=== PATIENT | male | born 1995 | race Caucasian/White ===

== ENCOUNTER 2024-05-12 19:01 | Emergency (ER) | payer MEDICAID, OTHER ==
[~2024-05-12] VITALS: Ht 182.9 cm; Wt 82.7 kg
[~2024-05-12 19:01] MED LIST: IBUP-1051 PO; LISD60CA PO
[2024-05-12 19:24] LABS: BASOPHILS % (AUTO) 0.6 % (0-1); EOSINOPHILS # (AUTO) 0.2 X10'3 (0-0.9); EOSINOPHILS % (AUTO) 4.2 % (0-6); HEMATOCRIT 36.8 % (42.0-52.0); HEMOGLOBIN 12.8 g/dl (14.0-17.9); LYMPHOCYTES # (AUTO) 1.5 X10'3 (1.1-4.8); LYMPHOCYTES % (AUTO) 25.3 % (21-51); MEAN CORPUSCULAR HEMOGLOBIN 30.2 PG (27.0-31.0); MEAN CORPUSCULAR HGB CONC 34.7 g/dL (33.0-36.5); MEAN PLATELET VOLUME 7.4 FL (7.4-10.4); MONOCYTES # (AUTO) 0.4 X10'3 (0-0.9); MONOCYTES % (AUTO) 7.2 % (2-12); NEUTROPHILS # (AUTO) 3.7 X10'3 (1.8-7.7); NEUTROPHILS % (AUTO) 62.7 % (42-75); PLATELET COUNT 193 X10'3 (140-440); RED BLOOD COUNT 4.23 X10'6 (4.70-6.10); RED CELL DISTRIBUTION WIDTH 13.2 % (11.5-14.5); WHITE BLOOD COUNT 5.8 X10'3 (4.5-11.0)
[2024-05-12 19:37] LABS: ALBUMIN 2.9 G/DL (3.4-5.0); ANION GAP 8 (8-16); BLOOD UREA NITROGEN 16 MG/DL (7-18); BUN/CREATININE RATIO 19.5 (10.0-20.0); CALCIUM 8.1 MG/DL (8.5-10.1); CHLORIDE 101 MMOL/L (99-107); CREATININE 0.82 MG/DL (0.60-1.10); SODIUM 134 MMOL/L (135-145); TOTAL CARBON DIOXIDE 25.3 MMOL/L (24-32); eCRCL 149 ML/MIN; eGFR > 90 ML/MIN
[2024-05-12 19:40] LABS: POTASSIUM 4.2 MMOL/L (3.5-5.1)
[2024-05-12 19:42] LABS: GLUCOSE 558 MG/DL (70-104)
[2024-05-12 20:11] LABS: BILIRUBIN,URINE NEGATIVE (Neg); CLARITY,URINE CLEAR (Clear); COLOR,URINE YELLOW (Yellow); GLUCOSE, URINE >=1000 mg/dl (Neg); KETONES,URINE NEGATIVE (Neg); LEUKOCYTE ESTERASE ,URINE NEGATIVE (Neg); NITRITES, URINE NEGATIVE (Neg); OCCULT BLOOD,URINE NEGATIVE (Neg); PH,URINE 5.5 (4.8-8.0); PROTEIN,URINE NEGATIVE (Neg); UROBILINOGEN,URINE 0.2 E.U/dL (0.2-1.0)
[2024-05-12] MEDS: normal saline 1000ml 1,000 ML IV ONE (20:30)
[2024-05-12 20:32] LABS: UA COLLECTION TYPE CLN CATCH MIDSTREAM
[2024-05-12] MEDS: insulin regular, human 10 units/0.1 ml syringe IV ONE (21:20)
[2024-05-12] MEDS ORDERED: INSU100C10 SQ (21:49)
[2024-05-12] MEDS ORDERED: insulin regular, human 10 units/0.1 ml syringe IV ONE (22:00)
[2024-05-12 23:14] VITALS: TEMP 98.6
[2024-05-12 23:25] VITALS: BP 103/60; PULSE 93; RESP 16; O2SAT 98
== END 2024-05-12 23:37 | disposition home or self-care (01) ==
LOC: ER 19:02
DX: E11.65 Type 2 diabetes mellitus with hyperglycemia (principal); Z79.1 Long term (current) use of non-steroidal anti-inflammatories (NSAID); Z79.899 Other long term (current) drug therapy
CPT/HCPCS: 36415; 71045; 80048; 81003; 82948; 84145; 85025; 96361; 96374; 99285; J1815; J7030

== ENCOUNTER 2024-06-01 18:30 | Inpatient (IN) | payer MEDICAID ==
[~2024-06-01] VITALS: Ht 185.4 cm; Wt 87.5 kg
[~2024-06-01 18:30] MED LIST changes: +INSU100C10 SQ
[2024-06-01 19:19] LABS: BASOPHILS % (AUTO) 0.3 % (0-1); EOSINOPHILS % (AUTO) 0.4 % (0-6); HEMATOCRIT 42.2 % (42.0-52.0); HEMOGLOBIN 15.8 g/dl (14.0-17.9); LYMPHOCYTES # (AUTO) 0.9 X10'3 (1.1-4.8); LYMPHOCYTES % (AUTO) 8.4 % (21-51); MEAN CORPUSCULAR HEMOGLOBIN 30.9 PG (27.0-31.0); MEAN CORPUSCULAR HGB CONC 37.3 g/dL (33.0-36.5); MEAN CORPUSCULAR VOLUME 82.6 FL (78-98); MEAN PLATELET VOLUME 7.8 FL (7.4-10.4); MONOCYTES # (AUTO) 0.7 X10'3 (0-0.9); MONOCYTES % (AUTO) 6.6 % (2-12); NEUTROPHILS # (AUTO) 9.3 X10'3 (1.8-7.7); NEUTROPHILS % (AUTO) 84.3 % (42-75); PLATELET COUNT 197 X10'3 (140-440); RED BLOOD COUNT 5.11 X10'6 (4.70-6.10); RED CELL DISTRIBUTION WIDTH 12.8 % (11.5-14.5); WHITE BLOOD COUNT 11.1 X10'3 (4.5-11.0)
[2024-06-01 19:32] LABS: LIPASE 348 U/L (16-77); eGFR > 90 ML/MIN
[2024-06-01 20:06] LABS: ALANINE AMINOTRANSFERASE 31 U/L (12-78); ALBUMIN 3.8 G/DL (3.4-5.0); ALKALINE PHOSPHATASE 152 IU/L (46-116); ANION GAP 13 (8-16); ASPARTATE AMINO TRANSFERASE 24 U/L (10-37); BILIRUBIN,TOTAL 0.5 MG/DL (0.1-1.0); BLOOD UREA NITROGEN 9 MG/DL (7-18); BUN/CREATININE RATIO 11.4 (10.0-20.0); CHLORIDE 97 MMOL/L (99-107); CREATININE 0.79 MG/DL (0.60-1.10); GLUCOSE 191 MG/DL (70-104); POTASSIUM 3.5 MMOL/L (3.5-5.1); SODIUM 134 MMOL/L (135-145); TOTAL CARBON DIOXIDE 24.3 MMOL/L (24-32); TOTAL PROTEIN 7.7 G/DL (6.4-8.2); eCRCL 159 ML/MIN
[2024-06-01 20:37] LABS: PLATELET ESTIMATE NORMAL
[2024-06-01] MEDS: ondansetron/PF 4mg/2ml inj IV ONE (20:47)
[2024-06-01] MEDS: normal saline 1000ML IV soln IVB ONE (20:47)
[2024-06-01] MEDS: morphine 4 MG/ML inj SYRINge IV ONE (20:47)
[2024-06-01] MEDS: famotidine/PF 10 mg/ml inj IV ONE (21:23)
[2024-06-01] MEDS ORDERED: METF-1203 PO (21:42)
[2024-06-01] MEDS ORDERED: ATOM40CA7 PO (21:42)
[2024-06-01] MEDS ORDERED: FLUO40CA PO (21:42)
[2024-06-01] MEDS ORDERED: ESTR2TAB PO (21:42)
[2024-06-01 23:11] LABS: BILIRUBIN,URINE NEGATIVE (Neg); CLARITY,URINE CLEAR (Clear); COLOR,URINE YELLOW (Yellow); GLUCOSE, URINE 500 mg/dl (Neg); KETONES,URINE TRACE mg/dl (Neg); LEUKOCYTE ESTERASE ,URINE SMALL (Neg); NITRITES, URINE NEGATIVE (Neg); OCCULT BLOOD,URINE NEGATIVE (Neg); PROTEIN,URINE NEGATIVE (Neg); UROBILINOGEN,URINE 0.2 E.U/dL (0.2-1.0)
[2024-06-01 23:13] LABS: UA COLLECTION TYPE VOIDED
[2024-06-01 23:18] LABS: SQUAMOUS EPITHELIAL CELL,UR FEW /LPF (FEW)
[2024-06-01 23:19] LABS: BACTERIA,URINE 1+ /HPF (Neg); RBC,URINE NONE SEEN /HPF (0-2)
[2024-06-01] MEDS: HYDROmorphone 1 mg/ml syringe IV ONE (23:53)
[2024-06-02] MEDS ORDERED: magnesium sulf-water 4G/100mL 100 ML IV PRN (01:25)
[2024-06-02] MEDS ORDERED: potassium Cl 40MEQ/1/2NS 520ml 520 ML IV PRN (01:25)
[2024-06-02] MEDS ORDERED: magnesium Cl slow-release 64mg tablet PO PRN (01:25)
[2024-06-02] MEDS ORDERED: potassium Cl 20 mEq SR tablet PO PRN (01:25)
[2024-06-02] MEDS ORDERED: magnesium sulf-water 2g/50mL 50 ML IV PRN (01:25)
[2024-06-02] MEDS: CefTRIAXone/D5W-Rocephin 1gm 50 ML IV ONE (01:52)
[2024-06-02] MEDS: ringers solution, lacted 1,000 ML IV SCH (01:52)
[2024-06-02] MEDS ORDERED: glucagon, human recombinant 1mg kit SUBCUT PRN (03:45)
[2024-06-02] MEDS ORDERED: dextrose 50%-water 50ml dispensing syringe IV PRN ×2 (03:45)
[2024-06-02] MEDS ORDERED: DEXTROSE 15 GM of carb/4 tabs (each vial/BOTTLE has 4 tablets) PO PRN ×2 (03:45)
[2024-06-02] MEDS ORDERED: LANTUS SUBCUT (04:15)
[2024-06-02] MEDS ORDERED: INSU100V49 SQ (04:15)
[2024-06-02 04:21] LABS: FREE T4 (FREE THYROXINE) 1.08 NG/DL (0.73-1.40); THYROID STIMULATING HORMONE 0.47 ulU/ml (0.34-4.50)
[2024-06-02] MEDS: insulin Lispro (HumaLOG) vial - multi-dose SQ ONE (04:39)
[2024-06-02] MEDS: INSULIN LISPRO 100 UNIT/ML INSULN.PEN MULTI-DOSE SQ ONE (04:42)
[2024-06-02] MEDS: HYDROmorphone 1 mg/ml syringe IV PRN (04:45)
[2024-06-02] MEDS: INSULIN LISPRO 100 UNIT/ML INSULN.PEN MULTI-DOSE SQ SCH (06:04)
[2024-06-02 07:00] VITALS: BP 106/62; PULSE 103; RESP 16; TEMP 99.4; O2SAT 96
[2024-06-02 07:33] LABS: LIPASE 185 U/L (16-77)
[2024-06-02 08:00] VITALS: RESP 16; O2SAT 99
[2024-06-02] MEDS: K and/or MAG REPLACEMENT MC SCH (08:00)
[2024-06-02] MEDS: heparin, porcine 5000 units/ml vial SQ SCH (08:04)
[2024-06-02] MEDS: pantoprazole 40 MG vial IV SCH (08:04)
[2024-06-02] MEDS: FLUoxetine 20mg capsule PO SCH (08:05)
[2024-06-02] MEDS: atomoxetine 40 MG capsule PO SCH (08:05)
[2024-06-02] MEDS: estradiol 1mg tablet PO SCH (08:06)
[2024-06-02] MEDS: insulin glargine (Lantus) pen - multi-dose SQ SCH (08:11)
[2024-06-02 09:00] LABS: C-REACTIVE PROTEIN 0.82 MG/DL (0.0-0.5); CHOL/HDL RATIO 4.8 (0.00-4.99); CHOLESTEROL 215 MG/DL (0-200); ETHANOL < 10 MG/DL (<10); HDL CHOLESTEROL 45 MG/DL (35-60); LDL CHOLESTEROL 24 MG/DL (50-100); TRIGLYCERIDES 714 MG/DL (20-135)
[2024-06-02] MEDS: ondansetron/PF 4mg/2ml inj IV PRN (09:12)
[2024-06-02 10:00] VITALS: BP 127/82; PULSE 117; RESP 15; TEMP 98.5; O2SAT 97
[2024-06-02] MEDS: metroNIDAZOLE-Flagyl 500mg/NS 100 ML IV SCH (10:00)
[2024-06-02] MEDS: CefTRIAXone/D5W-Rocephin 1gm 50 ML IV SCH (13:37)
[2024-06-02 18:00] VITALS: BP 96/59; PULSE 104; RESP 15; TEMP 97.1; O2SAT 99
[2024-06-02] MEDS: gemfibrozil 600mg tablet PO SCH (19:47)
[2024-06-02 20:00] VITALS: RESP 18; O2SAT 99
[2024-06-02] MEDS ORDERED: insulin glargine (Lantus) pen - multi-dose SQ SCH (21:00)
[2024-06-02 22:00] VITALS: BP 90/51; PULSE 105; RESP 18; TEMP 97.9; O2SAT 99
[2024-06-02] MEDS: OMEGA-3/DHA/EPA/FISH OIL 1 EACH CAPSULE.DR PO SCH (22:44)
[2024-06-03 06:00] VITALS: BP 94/57; PULSE 104; RESP 13; TEMP 98.1; O2SAT 99
[2024-06-03 07:24] LABS: BASOPHILS % (AUTO) 0.4 % (0-1); EOSINOPHILS # (AUTO) 0.1 X10'3 (0-0.9); EOSINOPHILS % (AUTO) 2.5 % (0-6); HEMATOCRIT 32.7 % (35.0-45.0); HEMOGLOBIN 11.5 g/dl (12.0-16.0); LYMPHOCYTES # (AUTO) 0.8 X10'3 (1.1-4.8); LYMPHOCYTES % (AUTO) 15.9 % (21-51); MEAN CORPUSCULAR HEMOGLOBIN 30.1 PG (27.0-31.0); MEAN CORPUSCULAR HGB CONC 35.3 g/dL (33.0-36.5); MEAN CORPUSCULAR VOLUME 85.3 FL (78-98); MONOCYTES # (AUTO) 0.6 X10'3 (0-0.9); NEUTROPHILS # (AUTO) 3.7 X10'3 (1.8-7.7); NEUTROPHILS % (AUTO) 70.2 % (42-75); PLATELET COUNT 121 X10'3 (140-440); RED BLOOD COUNT 3.83 X10'6 (4.20-5.60); RED CELL DISTRIBUTION WIDTH 12.8 % (11.5-14.5); WHITE BLOOD COUNT 5.3 X10'3 (4.5-11.0)
[2024-06-03 08:10] LABS: ALANINE AMINOTRANSFERASE 61 U/L (12-78); ALBUMIN 2.6 G/DL (3.4-5.0); ALBUMIN/GLOBULIN RATIO 0.8 (1.1-1.5); ALKALINE PHOSPHATASE 122 IU/L (46-116); ANION GAP 7 (8-16); ASPARTATE AMINO TRANSFERASE 52 U/L (10-37); BILIRUBIN,TOTAL 0.6 MG/DL (0.1-1.0); BLOOD UREA NITROGEN 4 MG/DL (7-18); BUN/CREATININE RATIO 5.8 (10.0-20.0); C-REACTIVE PROTEIN 8.05 MG/DL (0.0-0.5); CALCIUM 8.2 MG/DL (8.5-10.1); CHLORIDE 103 MMOL/L (99-107); CHOL/HDL RATIO 3.2 (0.00-4.99); CHOLESTEROL 152 MG/DL (0-200); CREATININE 0.69 MG/DL (0.40-0.90); GLUCOSE 197 MG/DL (70-104); HDL CHOLESTEROL 48 MG/DL (35-60); LDL CHOLESTEROL 54 MG/DL (50-100); MAGNESIUM 1.7 MG/DL (1.5-2.4); PHOSPHORUS 3.3 MG/DL (2.3-4.5); POTASSIUM 3.2 MMOL/L (3.5-5.1); SODIUM 139 MMOL/L (135-145); TOTAL CARBON DIOXIDE 28.8 MMOL/L (24-32); TOTAL PROTEIN 5.8 G/DL (6.4-8.2); eCRCL 146 ML/MIN; eGFR > 90 ML/MIN
[2024-06-03 08:14] LABS: VALPROATE < 3.0 UG/ML (50-100)
[2024-06-03 08:27] LABS: TRIGLYCERIDES 280 MG/DL (20-135)
[2024-06-03] MEDS: potassium Cl 20 mEq SR tablet PO PRN (08:30)
[2024-06-03] MEDS ORDERED: ONDA-104 PO (11:20)
[2024-06-03] MEDS ORDERED: METR-159 PO (11:23)
[2024-06-03] MEDS ORDERED: CEFD300C3 PO (11:23)
[2024-06-03] MEDS ORDERED: OMEG1CAP46 PO (11:26)
[2024-06-03] MEDS ORDERED: GEMF600T PO (11:26)
[2024-06-03] MEDS ORDERED: INSU100I8 SQ (13:28)
[2024-06-03] MEDS ORDERED: LANTUS SUBCUT (13:28)
== END 2024-06-03 14:10 | disposition home or self-care (01) | DRG 282 ==
LOC: ER 18:31 → EDSEX 18:31 → ED HOLD 06-02 01:27 → EDBEDREQ 06-02 04:54 → ORTHO 4S 06-02 07:35
PROVIDERS: ADMIT Internal Medicine Pulmonary Disease; ATTEND Nurse Practitioner Family
DX: K85.30 Drug induced acute pancreatitis without necrosis or infection (principal); E11.9 Type 2 diabetes mellitus without complications; N39.0 Urinary tract infection, site not specified; F64.0 Transsexualism; K29.80 Duodenitis without bleeding; K29.70 Gastritis, unspecified, without bleeding; E78.1 Pure hyperglyceridemia; T50.995A Adverse effect of other drugs, medicaments and biological substances, initial encounter; R74.8 Abnormal levels of other serum enzymes; K51.90 Ulcerative colitis, unspecified, without complications; Z90.49 Acquired absence of other specified parts of digestive tract; Z79.84 Long term (current) use of oral hypoglycemic drugs; Z79.899 Other long term (current) drug therapy; Y92.89 Other specified places as the place of occurrence of the external cause
CPT/HCPCS: 36415; 74176; 76700; 80053; 80061; 80164; 80320; 81001; 82948; 83036; 83605; 83690; 83735; 84100; 84145; 84439; 84443; 85008; 85025; 86140; 87040; 87081; 87088; 96374; 96375; 99285; G0378; J0696; J1171; J1644; J1815; J2270; J2405; J2470; J3490; J7030; J7040; J7120

== ENCOUNTER 2024-06-23 12:18 | Inpatient (IN) | payer MEDICAID ==
[~2024-06-23] VITALS: Ht 182.9 cm; Wt 89.1 kg
[~2024-06-23 12:18] MED LIST changes: +ATOM40CA7 PO; +CEFD300C3 PO; +FLUO40CA PO; +GEMF600T PO; -IBUP-1051 PO; -INSU100C10 SQ; +INSU100I8 SQ; +INSU100V49 SQ; +LANTUS SUBCUT; -LISD60CA PO; +OMEG1CAP46 PO; +ONDA-104 PO
[2024-06-23] MEDS: normal saline 1000ML IV soln IVB ONE (13:00)
[2024-06-23 13:23] LABS: BILIRUBIN,URINE NEGATIVE (Neg); CLARITY,URINE CLEAR (Clear); COLOR,URINE STRAW (Yellow); GLUCOSE, URINE >=1000 mg/dl (Neg); KETONES,URINE >=80 mg/dl (Neg); LEUKOCYTE ESTERASE ,URINE NEGATIVE (Neg); NITRITES, URINE NEGATIVE (Neg); OCCULT BLOOD,URINE SMALL (Neg); PROTEIN,URINE NEGATIVE (Neg); UROBILINOGEN,URINE 0.2 E.U/dL (0.2-1.0)
[2024-06-23 13:32] LABS: LIPASE 342 U/L (16-77)
[2024-06-23] MEDS: HYDROmorphone inj. 0.5 MG/0.5 ML DISP.SYRIN IV ONE ×3 (13:32→16:07)
[2024-06-23 13:33] LABS: UA COLLECTION TYPE CLN CATCH MIDSTREAM
[2024-06-23 13:35] LABS: WBC,URINE 0-4 /HPF (0-4)
[2024-06-23 13:37] LABS: BACTERIA,URINE NONE SEEN /HPF (Neg); MUCUS STRANDS FEW /LPF (Neg); SQUAMOUS EPITHELIAL CELL,UR FEW /LPF (FEW)
[2024-06-23 14:12] LABS: ALANINE AMINOTRANSFERASE 43 U/L (12-78); ALBUMIN 3.5 G/DL (3.4-5.0); ALBUMIN/GLOBULIN RATIO 0.9 (1.1-1.5); ALKALINE PHOSPHATASE 181 IU/L (46-116); ASPARTATE AMINO TRANSFERASE 26 U/L (10-37); BILIRUBIN,DIRECT 0.1 MG/DL (0-0.3); BILIRUBIN,TOTAL 0.4 MG/DL (0.1-1.0); CALCIUM 8.1 MG/DL (8.5-10.1); TOTAL PROTEIN 7.4 G/DL (6.4-8.2)
[2024-06-23] MEDS: ondansetron/PF 4mg/2ml inj IV ONE (14:18)
[2024-06-23] MEDS: INSULIN LISPRO 100 UNIT/ML INSULN.PEN MULTI-DOSE SQ STA (14:25)
[2024-06-23 14:30] LABS: BLOOD UREA NITROGEN 9 MG/DL (7-18); BUN/CREATININE RATIO 10.2 (10.0-20.0); CHLORIDE 99 MMOL/L (99-107); CREATININE 0.88 MG/DL (0.40-0.90); POTASSIUM 3.8 MMOL/L (3.5-5.1); SODIUM 131 MMOL/L (135-145); eCRCL 111 ML/MIN; eGFR 77 ML/MIN
[2024-06-23 14:32] LABS: BASOPHILS # (AUTO) 0.2 X10'3 (0-0.2); BASOPHILS % (AUTO) 1.7 % (0-1); EOSINOPHILS # (AUTO) 0.4 X10'3 (0-0.9); EOSINOPHILS % (AUTO) 3.9 % (0-6); HEMOGLOBIN 13.2 g/dl (12.0-16.0); LYMPHOCYTES # (AUTO) 2.6 X10'3 (1.1-4.8); LYMPHOCYTES % (AUTO) 29.3 % (21-51); MEAN CORPUSCULAR HEMOGLOBIN 29.9 PG (27.0-31.0); MEAN CORPUSCULAR HGB CONC 36.3 g/dL (33.0-36.5); MEAN CORPUSCULAR VOLUME 82.4 FL (78-98); MEAN PLATELET VOLUME 6.8 FL (7.4-10.4); MONOCYTES # (AUTO) 0.3 X10'3 (0-0.9); MONOCYTES % (AUTO) 2.9 % (2-12); NEUTROPHILS # (AUTO) 5.6 X10'3 (1.8-7.7); NEUTROPHILS % (AUTO) 62.2 % (42-75); PLATELET COUNT 173 X10'3 (140-440); RED BLOOD COUNT 4.43 X10'6 (4.20-5.60); RED CELL DISTRIBUTION WIDTH 13.3 % (11.5-14.5)
[2024-06-23 14:38] LABS: HEMATOCRIT 36.5 % (35.0-45.0)
[2024-06-23 14:43] LABS: GLUCOSE 470 MG/DL (70-104)
[2024-06-23 14:57] LABS: TOTAL CELLS COUNTED 100
[2024-06-23 14:58] LABS: PLATELET ESTIMATE NORMAL
[2024-06-23 14:59] LABS: SPHEROCYTES FEW
[2024-06-23 15:07] LABS: POIKILOCYTOSIS FEW
[2024-06-23] MEDS ORDERED: potassium Cl 40MEQ/1/2NS 520ml 520 ML IV PRN (15:10)
[2024-06-23] MEDS ORDERED: acetaminophen 325mg tablet PO PRN (15:10)
[2024-06-23] MEDS ORDERED: potassium Cl 20 mEq SR tablet PO PRN (15:10)
[2024-06-23] MEDS ORDERED: sodium phosphate inj. 30 MMOL in dextrose 5%-water 250 ML IV PRN (15:10)
[2024-06-23] MEDS ORDERED: magnesium hydroxide 30ml (MOM) UD suspension PO PRN (15:10)
[2024-06-23] MEDS ORDERED: sodium bicarbonate (8.4%) inj. 100 MEQ in dextrose 5% water 500ml 500 ML IV PRN (15:10)
[2024-06-23] MEDS ORDERED: mag hydrox/Alum hydrox/simeth 30ml oral suspension PO PRN (15:10)
[2024-06-23] MEDS: normal saline 1000ml 1,000 ML IV SCH ×2 (15:10→17:22)
[2024-06-23] MEDS ORDERED: dextrose 50%-water 50ml dispensing syringe IV PRN (15:10)
[2024-06-23] MEDS ORDERED: sodium bicarbonate (8.4%) inj. 50 MEQ in dextrose 5% water 500ml 250 ML IV PRN (15:10)
[2024-06-23] MEDS ORDERED: insulin regular, human 10 units/0.1 ml syringe IV PRN (15:10)
[2024-06-23] MEDS ORDERED: Neutra Phos packet PO PRN (15:10)
[2024-06-23] MEDS ORDERED: sodium phosphate inj. 15 MMOL in dextrose 5%-water 250 ML IV PRN (15:10)
[2024-06-23] MEDS ORDERED: magnesium sulf-water 4G/100mL 100 ML IV PRN (15:10)
[2024-06-23] MEDS ORDERED: magnesium sulf-water 2g/50mL 50 ML IV PRN (15:10)
[2024-06-23] MEDS: normal saline 1000ml 1,000 ML IV ONE ×2 (15:41→17:16)
[2024-06-23] MEDS ORDERED: iohexol 300mg/ml 100ml inj. ONE (16:14)
[2024-06-23] MEDS: ondansetron/PF 4mg/2ml inj IV PRN (16:15)
[2024-06-23 17:12] LABS: ALBUMIN 3.1 G/DL (3.4-5.0); BLOOD UREA NITROGEN 7 MG/DL (7-18); BUN/CREATININE RATIO 9.6 (10.0-20.0); CALCIUM 7.8 MG/DL (8.5-10.1); CHLORIDE 104 MMOL/L (99-107); CREATININE 0.73 MG/DL (0.40-0.90); GLUCOSE 325 MG/DL (70-104); PHOSPHORUS 3.1 MG/DL (2.3-4.5); POTASSIUM 3.5 MMOL/L (3.5-5.1); SODIUM 136 MMOL/L (135-145); eCRCL 134 ML/MIN; eGFR > 90 ML/MIN
[2024-06-23 19:19] LABS: ALBUMIN 2.9 G/DL (3.4-5.0); ALBUMIN/GLOBULIN RATIO 0.9 (1.1-1.5); ALKALINE PHOSPHATASE 159 IU/L (46-116); BILIRUBIN,TOTAL 0.4 MG/DL (0.1-1.0); CREATININE 0.65 MG/DL (0.40-0.90); GLUCOSE 297 MG/DL (70-104); POTASSIUM 3.9 MMOL/L (3.5-5.1); SODIUM 135 MMOL/L (135-145); TOTAL PROTEIN 6.1 G/DL (6.4-8.2); eCRCL 150 ML/MIN; eGFR > 90 ML/MIN
[2024-06-23 19:23] LABS: CHLORIDE 104 MMOL/L (99-107)
[2024-06-23 19:26] LABS: ALANINE AMINOTRANSFERASE 37 U/L (12-78); ASPARTATE AMINO TRANSFERASE 19 U/L (10-37); BLOOD UREA NITROGEN 5 MG/DL (7-18); BUN/CREATININE RATIO 7.7 (10.0-20.0)
[2024-06-23 19:45] VITALS: BP 106/63; PULSE 82; RESP 20; TEMP 96.9; O2SAT 96
[2024-06-23] MEDS: docusate sod 100mg capsule PO SCH (20:00)
[2024-06-23] MEDS: K and/or MAG REPLACEMENT MC SCH (20:00)
[2024-06-23] MEDS ORDERED: morphine 2 MG/ML inj. syringe IV PRN (20:30)
[2024-06-23 20:54] LABS: ABG BASE EXCESS -15.5 mmol/L (-2.0-3.0); ABG HCO3 10.8 mmol/L (21.0-28.0); ABG OXYGEN SATURATION 97.9 % (94.0-98.0); ABG PCO2 (T) 26.4 mmHg (32.0-45.0); ABG PH (T) 7.222 (7.350-7.450); ABG PO2 (T) 97.3 mmHg (83.0-108.0); ALLEN'S TEST POSITIVE; FCOHb 0.3 % (0.5-1.5); FHHb 2.1 % (0.0-5.0); FO2Hb 97.6 % (94.0-98.0); MODE ROOM AIR; PATIENT TEMPERATURE 36.1; TOTAL HEMOGLOBIN 13.6 G/dl (12.0-16.0)
[2024-06-23] MEDS: metoclopramide 5 mg/ml inj IV PRN (21:06)
[2024-06-23] MEDS: morphine 2 MG/ML inj. syringe IV PRN (21:11)
[2024-06-23] MEDS: insulin Lispro (HumaLOG) vial - multi-dose SQ ONE (21:40)
[2024-06-23 22:00] VITALS: BP 100/64; PULSE 101; RESP 15; TEMP 96.5; O2SAT 96
[2024-06-24] MEDS: Insulin Reg/NS 100units/100mL 100 ML IV SCH (02:02)
[2024-06-24] MEDS: potassium CL 20mEq in D5-1/2NS 1,000 ML IV PRN (02:12)
[2024-06-24 02:20] LABS: BASOPHILS # (AUTO) 0.4 X10'3 (0-0.2); BASOPHILS % (AUTO) 2.3 % (0-1); EOSINOPHILS # (AUTO) 0.1 X10'3 (0-0.9); EOSINOPHILS % (AUTO) 0.3 % (0-6); HEMATOCRIT 39.2 % (35.0-45.0); HEMOGLOBIN 15.9 g/dl (12.0-16.0); LYMPHOCYTES % (AUTO) 5.3 % (21-51); MEAN CORPUSCULAR HEMOGLOBIN 34.7 PG (27.0-31.0); MEAN CORPUSCULAR HGB CONC 40.6 g/dL (33.0-36.5); MEAN CORPUSCULAR VOLUME 85.5 FL (78-98); MEAN PLATELET VOLUME 6.5 FL (7.4-10.4); MONOCYTES # (AUTO) 1.4 X10'3 (0-0.9); MONOCYTES % (AUTO) 7.2 % (2-12); NEUTROPHILS # (AUTO) 16.3 X10'3 (1.8-7.7); NEUTROPHILS % (AUTO) 84.9 % (42-75); PLATELET COUNT 294 X10'3 (140-440); RED BLOOD COUNT 4.59 X10'6 (4.20-5.60); RED CELL DISTRIBUTION WIDTH 13.2 % (11.5-14.5); WHITE BLOOD COUNT 19.2 X10'3 (4.5-11.0)
[2024-06-24 02:57] LABS: ALBUMIN 3.4 G/DL (3.4-5.0); ANION GAP 24 (8-16); CALCIUM 8.3 MG/DL (8.5-10.1); CHLORIDE 105 MMOL/L (99-107); CREATININE 0.76 MG/DL (0.40-0.90); GLUCOSE 251 MG/DL (70-104); PHOSPHORUS 3.5 MG/DL (2.3-4.5); POTASSIUM 3.3 MMOL/L (3.5-5.1); SODIUM 136 MMOL/L (135-145); eCRCL 128 ML/MIN; eGFR > 90 ML/MIN
[2024-06-24 03:00] VITALS: BP 107/64; PULSE 109; RESP 19; TEMP 97.3; O2SAT 96
[2024-06-24 03:03] LABS: BLOOD UREA NITROGEN 3 MG/DL (7-18); BUN/CREATININE RATIO 3.9 (10.0-20.0)
[2024-06-24 03:07] LABS: TOTAL CELLS COUNTED 100
[2024-06-24 06:30] VITALS: BP 99/61; PULSE 118; RESP 23; TEMP 97.6; O2SAT 97
[2024-06-24 09:21] LABS: HDL CHOLESTEROL 37 MG/DL (35-60); LDL CHOLESTEROL 81 MG/DL (50-100)
[2024-06-24 10:08] LABS: ALBUMIN 3.4 G/DL (3.4-5.0); BILIRUBIN,TOTAL 0.4 MG/DL (0.1-1.0); BLOOD UREA NITROGEN 3 MG/DL (7-18); BUN/CREATININE RATIO 3.7 (10.0-20.0); CALCIUM 8.7 MG/DL (8.5-10.1); CHLORIDE 108 MMOL/L (99-107); CREATININE 0.82 MG/DL (0.40-0.90); GLUCOSE 187 MG/DL (70-104); MAGNESIUM 2.6 MG/DL (1.5-2.4); PHOSPHORUS 2.7 MG/DL (2.3-4.5); POTASSIUM 3.3 MMOL/L (3.5-5.1); SODIUM 138 MMOL/L (135-145); TOTAL PROTEIN 7.6 G/DL (6.4-8.2); eCRCL 119 ML/MIN; eGFR 84 ML/MIN
[2024-06-24 10:09] LABS: ALANINE AMINOTRANSFERASE 42 U/L (12-78); ALBUMIN/GLOBULIN RATIO 0.8 (1.1-1.5); ALKALINE PHOSPHATASE 178 IU/L (46-116)
[2024-06-24 10:12] LABS: TRIGLYCERIDES 5535 MG/DL (20-135)
[2024-06-24 10:27] LABS: BASOPHILS # (AUTO) 0.2 X10'3 (0-0.2); BASOPHILS % (AUTO) 0.9 % (0-1); EOSINOPHILS % (AUTO) 0 % (0-6); LYMPHOCYTES # (AUTO) 1.2 X10'3 (1.1-4.8); LYMPHOCYTES % (AUTO) 6.6 % (21-51); MEAN PLATELET VOLUME 6.8 FL (7.4-10.4); MONOCYTES # (AUTO) 0.9 X10'3 (0-0.9); MONOCYTES % (AUTO) 4.8 % (2-12); NEUTROPHILS # (AUTO) 16.4 X10'3 (1.8-7.7); NEUTROPHILS % (AUTO) 87.7 % (42-75); PLATELET COUNT 254 X10'3 (140-440); WHITE BLOOD COUNT 18.8 X10'3 (4.5-11.0)
[2024-06-24 11:00] VITALS: BP 115/70; PULSE 118; RESP 23; TEMP 97.5; O2SAT 100
[2024-06-24 11:56] LABS: HEMOGLOBIN 14.1 g/dl (12.0-16.0); RED BLOOD COUNT 4.77 X10'6 (4.20-5.60)
[2024-06-24 11:57] LABS: MEAN CORPUSCULAR HEMOGLOBIN 29.5 PG (27.0-31.0); MEAN CORPUSCULAR HGB CONC 35.2 g/dL (33.0-36.5); MEAN CORPUSCULAR VOLUME 83.9 FL (78-98); RED CELL DISTRIBUTION WIDTH 13.3 % (11.5-14.5)
[2024-06-24 15:00] VITALS: BP 125/75; PULSE 120; RESP 20; TEMP 98.2; O2SAT 100
[2024-06-24 17:40] LABS: ABG BASE EXCESS -14.5 mmol/L (-2.0-3.0); ABG HCO3 10.6 mmol/L (21.0-28.0); ABG OXYGEN SATURATION 98.3 % (94.0-98.0); ABG PH (T) 7.262 (7.350-7.450); ABG PO2 (T) 91.9 mmHg (83.0-108.0); ALLEN'S TEST POSITIVE; FCOHb 0.4 % (0.5-1.5); FHHb 1.7 % (0.0-5.0); FLOW 0 L/min; FMetHb 0.1 % (0.0-1.5); FO2Hb 97.8 % (94.0-98.0); MODE ROOM AIR; TOTAL HEMOGLOBIN 14.6 G/dl (12.0-16.0)
[2024-06-24 18:00] VITALS: BP 126/79; PULSE 122; RESP 20; TEMP 97.9; O2SAT 99
[2024-06-24] MEDS: heparin, porcine 5000 units/ml vial SQ SCH (19:44)
[2024-06-24] MEDS: HYDROmorphone inj. 0.5 MG/0.5 ML DISP.SYRIN IV PRN (20:21)
[2024-06-24 22:00] VITALS: BP 109/74; PULSE 114; RESP 19; TEMP 97.7; O2SAT 100
[2024-06-24 22:14] LABS: ALANINE AMINOTRANSFERASE 27 U/L (12-78); ALBUMIN 2.9 G/DL (3.4-5.0); ALBUMIN/GLOBULIN RATIO 0.7 (1.1-1.5); ALKALINE PHOSPHATASE 146 IU/L (46-116); ANION GAP 16 (8-16); BILIRUBIN,TOTAL 0.5 MG/DL (0.1-1.0); BLOOD UREA NITROGEN 2 MG/DL (7-18); BUN/CREATININE RATIO 2.5 (10.0-20.0); CALCIUM 9.5 MG/DL (8.5-10.1); CHLORIDE 108 MMOL/L (99-107); CREATININE 0.81 MG/DL (0.40-0.90); GLUCOSE 210 MG/DL (70-104); SODIUM 135 MMOL/L (135-145); TOTAL PROTEIN 6.9 G/DL (6.4-8.2); eCRCL 120 ML/MIN; eGFR 85 ML/MIN
[2024-06-24 22:25] LABS: ASPARTATE AMINO TRANSFERASE 15 U/L (10-37)
[2024-06-24 22:27] LABS: POTASSIUM 2.9 MMOL/L (3.5-5.1); TOTAL CARBON DIOXIDE 10.6 MMOL/L (24-32)
[2024-06-24] MEDS: potassium Cl 20 mEq SR tablet PO PRN (23:28)
[2024-06-25 02:00] VITALS: BP 105/65; PULSE 119; RESP 16; TEMP 98.3; O2SAT 98
[2024-06-25 06:30] VITALS: BP 109/64; PULSE 85; RESP 20; TEMP 98.2; O2SAT 98
[2024-06-25 07:18] LABS: BASOPHILS % (AUTO) 0.1 % (0-1); EOSINOPHILS % (AUTO) 0.2 % (0-6); HEMATOCRIT 38.2 % (35.0-45.0); HEMOGLOBIN 13.6 g/dl (12.0-16.0); LYMPHOCYTES # (AUTO) 0.7 X10'3 (1.1-4.8); LYMPHOCYTES % (AUTO) 6.3 % (21-51); MEAN CORPUSCULAR HEMOGLOBIN 30.1 PG (27.0-31.0); MEAN CORPUSCULAR HGB CONC 35.6 g/dL (33.0-36.5); MEAN CORPUSCULAR VOLUME 84.8 FL (78-98); MEAN PLATELET VOLUME 7.1 FL (7.4-10.4); MONOCYTES # (AUTO) 0.5 X10'3 (0-0.9); MONOCYTES % (AUTO) 4.5 % (2-12); NEUTROPHILS # (AUTO) 9.2 X10'3 (1.8-7.7); NEUTROPHILS % (AUTO) 88.9 % (42-75); PLATELET COUNT 173 X10'3 (140-440); RED BLOOD COUNT 4.51 X10'6 (4.20-5.60); RED CELL DISTRIBUTION WIDTH 13.4 % (11.5-14.5); WHITE BLOOD COUNT 10.4 X10'3 (4.5-11.0)
[2024-06-25 08:17] LABS: ALBUMIN 2.6 G/DL (3.4-5.0); ALBUMIN/GLOBULIN RATIO 0.6 (1.1-1.5); ALKALINE PHOSPHATASE 144 IU/L (46-116); ANION GAP 11 (8-16); BILIRUBIN,TOTAL 0.6 MG/DL (0.1-1.0); BLOOD UREA NITROGEN 2 MG/DL (7-18); BUN/CREATININE RATIO 2.4 (10.0-20.0); CALCIUM 9.5 MG/DL (8.5-10.1); CHLORIDE 105 MMOL/L (99-107); CREATININE 0.83 MG/DL (0.40-0.90); LIPASE 90 U/L (16-77); MAGNESIUM 1.8 MG/DL (1.5-2.4); SODIUM 131 MMOL/L (135-145); TOTAL PROTEIN 6.8 G/DL (6.4-8.2); TRIGLYCERIDES 753 MG/DL (20-135); eCRCL 117 ML/MIN; eGFR 82 ML/MIN
[2024-06-25 08:20] LABS: GLUCOSE 239 MG/DL (70-104); POTASSIUM 3.8 MMOL/L (3.5-5.1)
[2024-06-25 08:44] LABS: ALANINE AMINOTRANSFERASE 27 U/L (12-78); ASPARTATE AMINO TRANSFERASE 18 U/L (10-37)
[2024-06-25 08:50] LABS: TOTAL CARBON DIOXIDE 14.6 MMOL/L (24-32)
[2024-06-25] MEDS: nicotine 14mg patch - 24hr TD SCH (10:00)
[2024-06-25 11:00] VITALS: BP 116/71; PULSE 110; RESP 19; TEMP 97.7; O2SAT 97
[2024-06-25 15:00] VITALS: BP 105/62; PULSE 78; RESP 16; TEMP 97.6; O2SAT 98
[2024-06-25 18:00] VITALS: BP 104/60; PULSE 85; RESP 16; TEMP 98.2; O2SAT 98
[2024-06-25 22:00] VITALS: BP 101/62; PULSE 92; RESP 17; TEMP 97.8; O2SAT 100
[2024-06-25] MEDS: zolpidem 5mg tablet PO PRN (22:30)
[2024-06-26 02:00] VITALS: BP 94/57; PULSE 93; RESP 15; TEMP 97.1; O2SAT 99
[2024-06-26 06:45] LABS: BASOPHILS # (AUTO) 0.1 X10'3 (0-0.2); BASOPHILS % (AUTO) 0.8 % (0-1); EOSINOPHILS # (AUTO) 0.3 X10'3 (0-0.9); EOSINOPHILS % (AUTO) 3.6 % (0-6); HEMATOCRIT 34.5 % (35.0-45.0); HEMOGLOBIN 12.3 g/dl (12.0-16.0); MEAN CORPUSCULAR HGB CONC 35.7 g/dL (33.0-36.5); MEAN CORPUSCULAR VOLUME 84.2 FL (78-98); MEAN PLATELET VOLUME 6.7 FL (7.4-10.4); MONOCYTES # (AUTO) 0.4 X10'3 (0-0.9); MONOCYTES % (AUTO) 5.9 % (2-12); NEUTROPHILS # (AUTO) 5.4 X10'3 (1.8-7.7); NEUTROPHILS % (AUTO) 75.7 % (42-75); PLATELET COUNT 158 X10'3 (140-440); RED BLOOD COUNT 4.09 X10'6 (4.20-5.60); RED CELL DISTRIBUTION WIDTH 14.2 % (11.5-14.5); WHITE BLOOD COUNT 7.1 X10'3 (4.5-11.0)
[2024-06-26 07:00] VITALS: BP 100/54; PULSE 71; RESP 16; TEMP 99.6; O2SAT 99
[2024-06-26 07:00] LABS: ALANINE AMINOTRANSFERASE 20 U/L (12-78); ALBUMIN 2.2 G/DL (3.4-5.0); ALBUMIN/GLOBULIN RATIO 0.6 (1.1-1.5); ALKALINE PHOSPHATASE 117 IU/L (46-116); ANION GAP 9 (8-16); ASPARTATE AMINO TRANSFERASE 16 U/L (10-37); BILIRUBIN,TOTAL 0.4 MG/DL (0.1-1.0); BLOOD UREA NITROGEN 4 MG/DL (7-18); BUN/CREATININE RATIO 5.9 (10.0-20.0); CALCIUM 9.5 MG/DL (8.5-10.1); CHLORIDE 104 MMOL/L (99-107); CREATININE 0.68 MG/DL (0.40-0.90); GLUCOSE 197 MG/DL (70-104); LIPASE 40 U/L (16-77); SODIUM 135 MMOL/L (135-145); TOTAL CARBON DIOXIDE 21.9 MMOL/L (24-32); TOTAL PROTEIN 6.1 G/DL (6.4-8.2); TRIGLYCERIDES 336 MG/DL (20-135); eCRCL 143 ML/MIN; eGFR > 90 ML/MIN
[2024-06-26 07:13] LABS: POTASSIUM 2.6 MMOL/L (3.5-5.1)
[2024-06-26] MEDS ORDERED: glucagon, human recombinant 1mg kit SUBCUT PRN (09:45)
[2024-06-26] MEDS ORDERED: DEXTROSE 15 GM of carb/4 tabs (each vial/BOTTLE has 4 tablets) PO PRN ×2 (09:45)
[2024-06-26] MEDS ORDERED: dextrose 50%-water 50ml dispensing syringe IV PRN ×2 (09:45)
[2024-06-26 11:00] VITALS: BP 114/67; PULSE 97; RESP 18; TEMP 99.4; O2SAT 99
[2024-06-26] MEDS: INSULIN LISPRO 100 UNIT/ML INSULN.PEN MULTI-DOSE SQ SCH (12:00)
[2024-06-26] MEDS ORDERED: NICO-631 TD (12:44)
[2024-06-26] MEDS ORDERED: INSU100I8 SQ (12:44)
[2024-06-26] MEDS ORDERED: gemfibrozil 600mg tablet PO SCH (20:00)
[2024-06-26] MEDS ORDERED: insulin glargine (Lantus) pen - multi-dose SQ SCH (21:00)
== END 2024-06-26 15:00 | disposition home or self-care (01) | DRG 282 ==
LOC: ER 12:19 → ED HOLD 15:07 → PCU 3S 19:28
PROVIDERS: ADMIT Family Medicine; ATTEND Family Medicine
PROC: BW211ZZ Computerized Tomography (CT Scan) of Abdomen and Pelvis using Low Osmolar Contrast (ICD-10-PCS; principal; 2024-06-23)
PROC: 05HD33Z Insertion of Infusion Device into Right Cephalic Vein, Percutaneous Approach (ICD-10-PCS; 2024-06-24)
PROC: B54MZZA Ultrasonography of Right Upper Extremity Veins, Guidance (ICD-10-PCS; 2024-06-24)
DX: K85.90 Acute pancreatitis without necrosis or infection, unspecified (principal); E11.10 Type 2 diabetes mellitus with ketoacidosis without coma; E86.0 Dehydration; K51.90 Ulcerative colitis, unspecified, without complications; E87.6 Hypokalemia; F17.290 Nicotine dependence, other tobacco product, uncomplicated; E78.1 Pure hyperglyceridemia; F32.A Depression, unspecified; I25.2 Old myocardial infarction; Z79.4 Long term (current) use of insulin; Z82.49 Family history of ischemic heart disease and other diseases of the circulatory system; Z82.5 Family history of asthma and other chronic lower respiratory diseases; Z83.3 Family history of diabetes mellitus; Z93.2 Ileostomy status
CPT/HCPCS: 36410; 36415; 36600; 74177; 76937; 80048; 80053; 80061; 80076; 81001; 82803; 82948; 83690; 83735; 84100; 84478; 85007; 85018; 85025; 87081; A4421; A4649; A6258; C1751; G0378; J1171; J1644; J1815; J2270; J2405; J2765; J3480; J3490; J7030; Q9967

== ENCOUNTER 2024-11-02 18:08 | Emergency (ER) | payer MEDICAID ==
[~2024-11-02] VITALS: Ht 188 cm; Wt 70.1 kg
[~2024-11-02 18:08] MED LIST changes: -CEFD300C3 PO; -INSU100V49 SQ; +NICO-631 TD; -OMEG1CAP46 PO
[2024-11-02 18:27] VITALS: BP 131/70; PULSE 96; RESP 15; TEMP 98.6; O2SAT 98
--- NOTE | 2024-11-02 19:26 | Physician Documentation ---
History of Present Illness General Chief Complaint: See Chief Complaint Stated Complaint: MEDICAL SUPPLYS Time Seen by MD: 19:18 Primary Medical Doctor: [facility] History of Present Illness Initial Comments This is a 29-year-old female with a history of colostomy who presently lives in a sober living facility who presents requesting colostomy supplies as the supplies she currently has do not fit properly. Patient reports no other acute symptoms or concerns. Patient reports she feels otherwise well. Medication Reconciliation Allergies: Coded Allergies: pineapple (Verified Allergy, Unknown, 11/02/24) Scheduled Atomoxetine HCl (Atomoxetine HCl), 1 CAP PO QAM, (Reported) Fluoxetine Hcl (Fluoxetine Hcl), 1 CAP PO DAILY, (Reported) Gemfibrozil (Lopid), 600 MG PO BID Insulin Glargine,Hum.rec.anlog* (Lantus*), 20 UNITS SUBCUT BID Insulin Lispro (Humalog), 0 UNIT SQ ACHS Nicotine 14 MG Patch* (Habitrol 14 MG Patch*), 1 PATCH TD DAILY Ondansetron HCl (Ondansetron HCl), 1 TAB PO Q8H Past Medical History Past Medical History: No Pertinent History Past Surgical History: no surgical history Smoking: Non-Smoker Lives with: Family Lives In: Other 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 Review of Systems ROS As stated above in the HPI, otherwise all systems are reviewed and negative. Physical Exam Physical Exam Vital Signs: Temperature: 98.6, Source: Temporal, Heart Rate: 96, Respiratory Rate: 15, BP: 131/70, Pulse Oximetry: 98, Weight: 70.100 Physical Exam VITALS: Reviewed and as above. GENERAL: Alert, nontoxic appearing, no apparent distress. RESPIRATORY: No increased work of breathing, no respiratory distress, speaking in full clear sentences Progress Results/Orders Results/Orders Vital Signs 11/02/24 18:27 Temp 98.6 Pulse 96 Resp 15 B/P (MAP) 131/70 Pulse Ox 98 Medical Decision Making Findings This 29-year-old female presented requesting ostomy supplies, patient reported no physical symptoms or concerns, patient provided colostomy supplies. Benign exam without evidence of physical or mental health distress. Patient is appropriate for outpatient follow up. Differential Diagnosis Colostomy problem, cellulitis, Departure Time of Disposition: 19:26 Disposition: 01 HOME / SELF CARE / HOMELESS Impression: Primary Impression: Colostomy care Additional Impression: General medical exam Condition: Improved Additional Instructions: Please use provided ostomy supplies. Please follow up with the primary care provider in the next few days for prescription for continued ostomy supplies. Please return to the emergency department for any new or worsening concerning symptoms. Please excuse patient for coming in late after curfew patient was seen in emergency department today and discharged from the emergency department at 7:30 p.m. today. Referrals: NO PRIMARY CARE PROVIDER (PCP) Education Educated: Patient Educated regarding: diagnosis, treatment, prognosis, need for follow up Signature Scribe Signature: No scribe Attestation: The note accurately reflects work and decisions made by me.AB Gonzalez 11/03/24 02:56 MORE AHMADI November 02, 2024 19:26
== END 2024-11-02 19:36 | disposition home or self-care (01) ==
LOC: ER 18:08
DX: Z43.3 Encounter for attention to colostomy (principal)
CPT/HCPCS: 99281; A4398

== ENCOUNTER 2024-11-14 12:52 | Inpatient (IN) | payer MEDICAID ==
[~2024-11-14] VITALS: Ht 182.9 cm; Wt 91.8 kg
[2024-11-14] MEDS: normal saline 1000ml 1,000 ML IV SCH (01:20)
[2024-11-14 13:37] LABS: BASOPHILS % (AUTO) 0 % (0-1); EOSINOPHILS # (AUTO) 0.4 X10'3 (0-0.9); EOSINOPHILS % (AUTO) 4.2 % (0-6)
[2024-11-14 13:38] LABS: LYMPHOCYTES # (AUTO) 2.2 X10'3 (1.1-4.8); LYMPHOCYTES % (AUTO) 24.2 % (21-51); MEAN PLATELET VOLUME 7.5 FL (7.4-10.4); MONOCYTES % (AUTO) 10.9 % (2-12); NEUTROPHILS # (AUTO) 5.6 X10'3 (1.8-7.7); NEUTROPHILS % (AUTO) 60.7 % (42-75); PLATELET COUNT 281 X10'3 (140-440); WHITE BLOOD COUNT 9.2 X10'3 (4.5-11.0)
[2024-11-14 13:59] LABS: LIPASE 120 U/L (16-77)
--- NOTE | 2024-11-14 14:08 | Physician Documentation ---
History of Present Illness Chief Complaint: Abdominal Pain Stated Complaint: ABD PAIN Time Seen by MD: 13:34 OK to notify your PCP?: Yes Primary Medical Doctor: [facility] HPI 21-year-old female presenting with severe abdominal pain that started about 3 hours ago. Patient states that it is mainly in the epigastrium and right upper quadrant and radiates to the rest of her abdomen. The pain has been constant and gradually worsening. She has also been very nauseated and has vomited on several occasions. Patient has a type 1 diabetic and states that she has been taking her insulin as much as she should. Additionally she has a history of colon cancer and had a colectomy done with a colostomy tube placement in 2019. She reports that the pain is so severe that she feels very weak and fatigued. Denies any urinary symptoms. Denies any other associated symptoms. Medication Reconciliation Allergies: Coded Allergies: pineapple (Verified Allergy, Unknown, 11/02/24) Uncoded Allergies: NO MEDICATION ALLERGIES (Allergy, Unknown, 11/14/24) Scheduled Atomoxetine HCl (Atomoxetine HCl), 1 CAP PO QAM, (Reported) Fluoxetine Hcl (Fluoxetine Hcl), 1 CAP PO DAILY, (Reported) Insulin Glargine,Hum.rec.anlog* (Lantus*), 20 UNITS SUBCUT BID Insulin Lispro (Humalog), 0 UNIT SQ ACHS Ondansetron HCl (Ondansetron HCl), 1 TAB PO Q8H Discontinued Medications Gemfibrozil (Lopid), 600 MG PO BID Discontinued Reason: patient no longer taking Nicotine 14 MG Patch* (Habitrol 14 MG Patch*), 1 PATCH TD DAILY Discontinued Reason: patient no longer taking Past Medical History Past Medical History: No Pertinent History, Diabetes, Colon Cancer Past Surgical History: no surgical history, colectomy Patient History: FH: ADHD (attention deficit hyperactivity disorder) MOTHER, Name: Leisa Hortoncarrie, Born 02/07/71, , Not a twin, Race: / FH: ID (myocardial infarction) FATHER, Name: Harmeet Mahan, Born 12/20/76, Age: 47, Not a twin, Race: OTHER RACE FH: asthma MOTHER, Name: Leisa Solcarrie, Born 02/07/71, , Not a twin, Race: / FH: diabetes mellitus FATHER, Name: Harmeet Mahan, Born 12/20/76, Age: 47, Not a twin, Race: OTHER RACE Lives with: Family Lives In: Other 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 Physical Exam Vital Signs: Temperature: 98.8, Source: Oral, Heart Rate: 86, Respiratory Rate: 16, BP: 127/85, Pulse Oximetry: 100, Weight: 91.800 Oxygen Flow Rate: 0 Physical Exam I have reviewed the triage vitals. CONST: Well developed and well nourished. In moderate distress HENT: Head Atraumatic EYES: Pupils are equal, round and reactive to light. Normal conjunctiva NECK: Normal range of motion. Supple. CARDIO: Normal rate and regular rhythm. No murmurs, rubs, or gallops. S1, S2. PULM/CHEST: No respiratory distress. Lungs clear to auscultation. No wheeze ABD: Tenderness to palpation over the epigastrium and right upper quadrant. Colostomy tube full of stool in the right lower quadrant. Nondistended. Bowel sounds normal. No guarding. : Exam deferred MSK: No edema. No deformity. NEURO: Alert and oriented to person, place and time. Moving all extremities SKIN: Diaphoretic and pale PSYCH: Normal mood and affect. Good eye contact. Progress Results/Orders Results/Orders Orders - ANTONIETA LYNNE MD Amylase (11/14/24 13:08) Cbc/Diff (11/14/24 13:08) Lipase (11/14/24 13:08) Urinalysis, Cult If Indicated (11/14/24 13:08) CMP (11/14/24 13:08) Hcg, Ur Ql (11/14/24 13:08) Culture Blood (11/14/24 14:04) Lacticsepsis (11/14/24 14:04) Acetone, Serum (11/14/24 14:04) Procalcitonin (11/14/24 14:04) Normal Saline 1,000ml Iv Bolus (11/14/24 14:05) Hydromorphone 1 Mg/Ml/Pf (Dilaudid Inj.) (11/14/24 14:05) Ondansetron Inj. (Zofran 4mg/2ml Vial) (11/14/24 14:05) Vital Signs 11/14/24 12:58 Temp 98.8 Pulse 86 Resp 16 B/P (MAP) 127/85 Pulse Ox 100 O2 Flow Rate 0 Laboratory Tests Test 11/14/24 13:21 CBC Comment Lipase 120 H Chemistry Comments EKG/XRAY/CT/US/VASC/MRI CT : Impression CT CT ABDOMEN PELVIS INDICATION: abdominal pain EXAM DATE: 11/14/2024 03:10 PM COMPARISON: CT CT ABDOMEN PELVIS W/ IV CONTRAST on DOS: 06/23/24, CT CT ABDOMEN PELVIS on DOS: 06/01/24 RADIATION DOSE: CTDIvol: 20 mGy, DLP: 1209 mGy*cm PROCEDURE: Helical CT images were obtained of the abdomen and pelvis without IV contrast Sagittal and coronal reconstructions are provided. ORAL CONTRAST: None. ADDITIONAL IMAGES / REFORMATS: None All CT scans at this medical facility are performed using dose modulation techniques as appropriate to a performed exam including the following: Automated exposure control was utilized; adjustment of the MA and/or KV according to patient size; and use of iterative reconstruction technique. FINDINGS: LUNG BASE: Normal. LIVER: Normal. GALLBLADDER AND BILIARY TREE: No calcified gallstones. Normal caliber wall. No intra- or extrahepatic biliary ductal dilation. PANCREAS: Peripancreatic edema and fat stranding is seen at the head of the pancreas. SPLEEN: Normal. BOWEL: Postsurgical changes with a right lower quadrant ileostomy. No dilated small bowel is seen. Surgical anastomotic sutures are seen at the rectum. ADRENALS: Normal. KIDNEYS AND URETER: Normal. BLADDER: Normal. REPRODUCTIVE ORGANS: Indeterminate LYMPH NODES:No lymphadenopathy. PERITONEUM: No ascites or free air. No other fluid collection. VESSELS: Scattered atherosclerotic calcifications are noted. RETROPERITONEUM: Normal. ABDOMINAL WALL: Normal. BONES: Scattered osseous degenerative changes are noted. IMPRESSION: Peripancreatic edema and fat stranding is seen at the head of the pancreas, is consistent with acute pancreatitis. Postsurgical changes with a right lower quadrant ileostomy. No dilated small bowel is seen. Surgical anastomotic sutures are seen at the rectum. Medical Decision Making Additional Comments 29-year-old female presenting with acute pancreatitis. Her CT does confirm this. Additionally her lipase is elevated although not as severely as seen in other cases. She does however have severe abdominal pain requiring multiple rounds of IV Dilaudid. She was also given 2 L of IV normal saline as well as a total of 8 mg of IV Zofran. Report called to admitting hospitalist team. Departure Disposition: ADMITTED INPATIENT Admitted to Inpatient Unit: to hospitalist Admission Level of Care: Neuro Impression: Primary Impression: Acute pancreatitis Condition: Guarded Referrals: NO PRIMARY CARE PROVIDER (PCP) Signature Scribe Signature: 1 Attestation: 1 ANTONIETA LYNNE MD November 14, 2024 14:08
[2024-11-14] MEDS: HYDROmorphone 1 mg/ml syringe IV ONE ×2 (14:17→16:20)
[2024-11-14] MEDS: ondansetron/PF 4mg/2ml inj IV ONE ×2 (14:17→16:18)
[2024-11-14] MEDS: normal saline 1000ml 1,000 ML IV ONE ×2 (14:17→16:10)
[2024-11-14 14:59] LABS: ALANINE AMINOTRANSFERASE 59 U/L (12-78); ALBUMIN 3.7 G/DL (3.4-5.0); ALBUMIN/GLOBULIN RATIO 0.9 (1.1-1.5); ALKALINE PHOSPHATASE 158 IU/L (46-116); AMYLASE 84 U/L (25-115); ASPARTATE AMINO TRANSFERASE 43 U/L (10-37); BILIRUBIN,TOTAL 0.7 MG/DL (0.1-1.0); BLOOD UREA NITROGEN 3 MG/DL (7-18); BUN/CREATININE RATIO 4.3 (10.0-20.0); CALCIUM 8.9 MG/DL (8.5-10.1); CHLORIDE 101 MMOL/L (99-107); CREATININE 0.69 MG/DL (0.40-0.90); GLUCOSE 163 MG/DL (70-104); POTASSIUM 3.7 MMOL/L (3.5-5.1); SODIUM 138 MMOL/L (135-145); TOTAL PROTEIN 7.8 G/DL (6.4-8.2); eCRCL 140 ML/MIN; eGFR > 90 ML/MIN
[2024-11-14 15:26] LABS: HEMATOCRIT 31.6 % (35.0-45.0); MEAN CORPUSCULAR HEMOGLOBIN 31.4 PG (27.0-31.0); MEAN CORPUSCULAR HGB CONC 38.7 g/dL (33.0-36.5); MEAN CORPUSCULAR VOLUME 81.1 FL (78-98)
[2024-11-14 15:27] LABS: RED CELL DISTRIBUTION WIDTH 12.9 % (11.5-14.5)
--- NOTE | 2024-11-14 15:38 | RADIOLOGY REPORT ---
CT CT ABDOMEN PELVIS INDICATION: abdominal pain EXAM DATE: 11/14/2024 03:10 PM COMPARISON: CT CT ABDOMEN PELVIS W/ IV CONTRAST on DOS: 06/23/24, CT CT ABDOMEN PELVIS on DOS: 06/01/24 RADIATION DOSE: CTDIvol: 20 mGy, DLP: 1209 mGy*cm PROCEDURE: Helical CT images were obtained of the abdomen and pelvis without IV contrast Sagittal and coronal reconstructions are provided. ORAL CONTRAST: None. ADDITIONAL IMAGES / REFORMATS: None All C T scans at this medical facility are performed using dose modulation techniques as appropriate to a p erformed exam including the following: Automated exposure control was utilized; adjustment of the MA and/or KV according to patient size; and use of iterative reconstruction technique. FINDINGS: LUNG BASE: Normal. LIVER: Normal. GALLBLADDER AND BILIARY TREE: No calcified gallstones. Normal caliber wall. No intra- or extrahepatic biliary ductal dilation. PANCREAS: Peripancreatic edema and fat stranding is seen at the head of the pancreas. SPLEEN: Normal. BOWEL: Postsurgical changes with a right lower quadrant ileostomy. No dilated small bowel is seen. Mccormick rgical anastomotic sutures are seen at the rectum. ADRENALS: Normal. KIDNEYS AND URETER: Normal. BLADDER: Normal. REPRODUCTIVE ORGANS: Indeterminate LYMPH NODES:No lymphadenopathy. PERITONEUM: No ascites or free air. No other fluid collection. VESSELS: Scattered atherosclerotic calcifications are noted. RETROPERITONEUM: Normal. ABDOMINAL WALL: Normal. BONES: Scattered osseous degenerative changes are noted. IMPRESSION: Peripancreatic edema and fat stranding is seen at the head of the pancreas, is consistent with acute pancreatitis. Postsurgical changes with a right lower quadrant ileostomy. No dilated small bowel is seen. Surgical anastomotic sutures are seen at the rectum.
[2024-11-14] MEDS ORDERED: acetaminophen 325mg tablet PO PRN ×2 (16:40)
[2024-11-14] MEDS ORDERED: potassium Cl 40MEQ/1/2NS 520ml 520 ML IV PRN (16:40)
[2024-11-14] MEDS: ciprofloxacin lact 400MG/200ML 200 ML IV SCH (16:40)
[2024-11-14] MEDS ORDERED: HYDROcodone/acetaminophen 5mg/325mg tablet PO PRN (16:40)
[2024-11-14] MEDS ORDERED: magnesium sulf-water 2g/50mL 50 ML IV PRN (16:40)
[2024-11-14] MEDS ORDERED: potassium Cl 20 mEq SR tablet PO PRN (16:40)
[2024-11-14] MEDS ORDERED: magnesium Cl slow-release 64mg tablet PO PRN (16:40)
[2024-11-14] MEDS ORDERED: morphine 2 MG/ML inj. syringe IV PRN (16:40)
[2024-11-14] MEDS ORDERED: magnesium sulf-water 4G/100mL 100 ML IV PRN (16:40)
[2024-11-14] MEDS ORDERED: HYDROcodone/acetaminophen 10/325mg tab PO PRN (16:40)
[2024-11-14] MEDS ORDERED: DEXTROSE 15 GM of carb/4 tabs (each vial/BOTTLE has 4 tablets) PO PRN ×2 (16:45)
[2024-11-14] MEDS ORDERED: glucagon, human recombinant 1mg kit SUBCUT PRN (16:45)
[2024-11-14] MEDS ORDERED: dextrose 50%-water 50ml dispensing syringe IV PRN ×2 (16:45)
[2024-11-14 16:46] LABS: ACETONE NEGATIVE (NEGATIVE)
[2024-11-14] MEDS: INSULIN LISPRO 100 UNIT/ML INSULN.PEN MULTI-DOSE SQ SCH (17:00)
--- NOTE | 2024-11-14 17:26 | HISTORY AND PHYSICAL-Residence ---
History & Physical Providers to CC Resident Creating Document: WONDAVE, JOANNE ~ History of Present Illness Primary Medical Doctor: [facility] Reason for Admit\Complaint: Recurrent pancreatitis History of Present Illness A 29 years old Ms. 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 She endorsed that the pain was acute sudden onset started from the epigastric area, pressure and sharp pain, no radiation, not associated with the food and persistent in nature, intense 9/10 while she was out of the hot shower this morning. She did not recall any positional changes or medications relief for pain. She denies any history of traumatic injury to the belly, history of sick contacts and any flu-like prodromal symptoms. The pain was associated with nausea and vomiting, subjectively consider-she passed out one time after she vomited 2 times at home and and a 2 times in ER. She denies fever with chills and rigors, shortness of breaths, peripheral chest pain, jaundice, indigestion, and steatorrhea. The pain she is having now is similar to her previous abdominal pain due to recurrent pancreatitis. She denies drinking binge alcohol/heavy alcoholic history, gallstones, Ozempic injection, any other OTC weight losing herbs medications, and any congenital anomalies. Allergies: Coded Allergies: pineapple (Verified Allergy, Unknown, 11/02/24) Uncoded Allergies: NO MEDICATION ALLERGIES (Allergy, Unknown, 11/14/24) Home Medications Home Medications Active Habitrol 14 MG Patch* (Nicotine) 1 Each Patch.td24 1 Patch TD DAILY 7 Days Humalog (Insulin Lispro) 100 Unit/Ml Insuln.pen 0 Unit SQ ACHS 30 Days SLIDING SCALE, MEALTIME INSULIN LESS THAN 150: 0 UNITS 150-199: 2 UNITS 200-249: 4 UNITS 250-299: 7 UNITS 300-349: 10 UNITS 350-400: 13 UNITS GREATER THAN 400: CALL Lancesarious* (Insulin Glargine) 100 Unit/1 Ml Vial 20 Units SUBCUT BID 30 Days Lopid (Gemfibrozil) 600 Mg Tablet 600 Mg PO BID 30 Days Ondansetron HCl 8 Mg Tablet 1 Tab PO Q8H 3 Days Reported Atomoxetine HCl 40 Mg Capsule 1 Cap PO QAM 30 Days Fluoxetine Hcl (Fluoxetine HCl) 40 Mg Capsule 1 Cap PO DAILY 30 Days Past Medical History Past Medical History recurrent pancreatitis, hypertriglyceridemia, 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 She has type 1 DM which is not well-controlled with Tresiba and Humalog, currently on glucose meter sensor. She has a history of DKA after she received Depo-Provera injection on last time admission. Past Surgical History Surgical History Comment CRC Hx s/p colectomy with ileostomy She got a diagnosis of CRC at the age of 24, possible sporadic with no family history of CRC and any other cancer. She undergone colectomy and ileostomy at [place], about to have a reverse ileostomy surgery in [place]. She denies receiving any VALVER therapy before. Family History Family History: FH: ADHD (attention deficit hyperactivity disorder) MOTHER, Name: Leisa Jung, Born 02/07/71, , Not a twin, Race: / FH: [place] (myocardial infarction) FATHER, Name: Harmeet Mahan, Born 12/20/76, Age: 47, Not a twin, Race: OTHER RACE FH: asthma MOTHER, Name: Leisa Jung, Born 02/07/71, , Not a twin, Race: / FH: diabetes mellitus FATHER, Name: Harmeet Mahan, Born 12/20/76, Age: 47, Not a twin, Race: OTHER RACE Past Social History Social History Comment She commented that she occasionally drinks 1-2 glass of wine with some shot on every 2-3 months. She has a history of using nicotine, denies using illicit drugs. She is living alone and fully ambulatory. She has a family support from her brother in law and her girlfriend. She has a PCP at [facility] Dr. Francis. She is wearing the ankle monitor by police. Smoking: Non-Smoker Lives with: Family Lives In: Other 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 ROS ROS Hours were review, WNL except for the mentioned above in HPI. Exam Vitals: Vital Signs Date Time Temp Pulse Resp B/P (MAP) Pulse Ox O2 Delivery O2 Flow Rate FiO2 11/14/24 16:23 85 20 120/74 (89) 100 0 11/14/24 12:58 98.8 General: General: Well alert, well oriented, not confused, not agitated, not in acute distress, well cooperated during the physical. HEENT: HEENT: Conjunctive are pink, sclerae clear, no icterus, pupil is equal in both sides, reactive to light, no ear discharge, no pharyngeal erythema or an edema, mouth and lips are dry. Neck: Neck: Supple, no JVD, no lymphadenopathy and thyromegaly. Chest: Lungs: Equal air entry on both lungs, no additional sounds Cardiovascular: Heart: S1-S2 regular sinus rhythm and, regular rate, no gallops, no rubs, no murmurs Abdomen: Abdomen: No visible peristalsis, Bowel sounds present on auscultation, soft, tenderness at the epigastrium and RHC, no guarding, no rigidity Extremities: Extremities: No obvious deformities, no pitting edema bilaterally, capillary refill intact, able to wiggle toes both sides, peripheral pulsations are intact on both sides. She is wearing ankle monitor which is monitor by police. 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 # Recurrent pancreatitis # Hx of pancreatitis # Hx of hypertriglyceridemia # Female Gender transitional Hormonal replacement therapy 11/14/2024: Elevated lipase with 120, < 3times of normal upper level 77 -Denies heavy alcohol history, gallstone history, any recent viral infection, Ozempic and other antipsych meds but she has a hx of hyper TG upto >700 before last time admission. -Pending Lipid profile and last time TG was 336 on 06/26/24. -some cases reported with elevated Levels of TG from HRT (low dose estradiol) which in turn can possibly cause Recurrent pancreatitis, plan to hold HRT if no clinical better improvement later -NPO for now -continue IV 0.9% normal saline 150 mL/hr -control the pain with morphine and Callery as needed -control the nausea and vomiting with the IV Zofran -continue IV ciprofloxacin q.12 hours -monitor daily CBC, vital signs for the possible complication of pancreatitis during hospitalization. # T1DM 11/14/2024: Continue lispro, low-dose insulin sliding scale protocol when the patient on NPO -continue daily monitoring -NPO for now, we will encourage enteral feeding if the patient tolerate nausea vomiting abdominal pain # CRC s/p colectomy and ileostomy 11/14/2024: Ostomy care -monitoring for any complications including strangulation, inflammation and infection. -suggested following up with the PCP and General surgery for the possible reversible ileostomy as planned in outpatient setting. # history of substance use-ETOH and a nicotine 11/14/2024:-two at nicotine patch 14 g q.day if patient is craving for smoking -monitor alcohol withdrawal clinical symptoms CODE STATUS: Full code DVT prophylaxis: Sc heparin Analgesia/sedation: Morphine/Callery Lines/tubes: Peripheral IV Nutrition: NPO, allowing ice chips Prognosis: Guarded Disposition: Continue medical management including IV fluids, monitor developmental complications for recurrent pancreatitis, diabetes control, pain control, PT eval and DC plan. Resident MD attestation: Patient was seen, examined and discussed with attending MD, Dr. Lucas UPTON MD Internal Medicine Resident, PGY2 [facility] Date of Service: November 14, 2024 Billing Provider: ALTAF CARLSON MD Common Visit Codes: 31709-[id number] INP/OBS CARE (HIGH) Secondary Visit Codes: 17899-[id number] CARE PLAN 30 MINUTES DAVE UPTON, JOANNE November 14, 2024 17:26 ALTAF CARLSON MD November 16, 2024 08:55
[2024-11-14 17:35] VITALS: BP 134/77; PULSE 85; RESP 18; TEMP 97.1; O2SAT 100
[2024-11-14] MEDS: morphine 2 MG/ML inj. syringe IV PRN (18:49)
[2024-11-14] MEDS: ondansetron/PF 4mg/2ml inj IV PRN (18:49)
[2024-11-14 19:29] LABS: CHOLESTEROL 463 MG/DL (0-200); HDL CHOLESTEROL 42 MG/DL (35-60); LDL CHOLESTEROL 134 MG/DL (50-100); TRIGLYCERIDES 5042 MG/DL (20-135)
[2024-11-14] MEDS: heparin, porcine 5000 units/ml vial SQ SCH (20:07)
[2024-11-14] MEDS: proCHLORperazine 10 MG/2 ml inj IV PRN (21:09)
[2024-11-14 22:05] VITALS: BP 124/79; PULSE 77; RESP 20; TEMP 98.5; O2SAT 96
[2024-11-14] MEDS: HYDROmorphone/PF 0.2 MG/ML SYRINGE IV ONE (23:23)
[2024-11-14 23:48] LABS: BILIRUBIN,URINE SMALL (Neg); CLARITY,URINE CLEAR (Clear); COLOR,URINE YELLOW (Yellow); GLUCOSE, URINE 500 mg/dl (Neg); KETONES,URINE >=80 mg/dl (Neg); LEUKOCYTE ESTERASE ,URINE NEGATIVE (Neg); NITRITES, URINE NEGATIVE (Neg); OCCULT BLOOD,URINE TRACE-INTACT (Neg); PROTEIN,URINE TRACE mg/dl (Neg); UROBILINOGEN,URINE 0.2 E.U/dL (0.2-1.0)
[2024-11-14 23:50] LABS: URINE HCG NEGATIVE (NEG)
[2024-11-14 23:51] LABS: UA COLLECTION TYPE NON-SPECIFIED
[2024-11-14 23:54] LABS: BACTERIA,URINE FEW /HPF (Neg); RBC,URINE 0-2 /HPF (0-2); SQUAMOUS EPITHELIAL CELL,UR FEW /LPF (FEW); WBC,URINE 0-4 /HPF (0-4)
[2024-11-15] VITALS (7 sets, daily range): BP systolic 101–115; BP diastolic 61–67; PULSE 111–124; RESP 12–20; TEMP 98.1–98.3; O2SAT 98–100
[2024-11-15 00:03] LABS: URINE AMPHETAMINE SCREEN NEGATIVE (Neg); URINE BARBITUATE SCREEN NEGATIVE (Neg); URINE BENZODIAZEPINES SCREEN NEGATIVE (Neg); URINE CANNABINOID SCREEN NEGATIVE (Neg); URINE COCAINE SCREEN NEGATIVE (Neg); URINE METHADONE SCREEN NEGATIVE (Neg); URINE OPIATE SCREEN POSITIVE (Neg); URINE PHENCYCLIDINE SCREEN NEGATIVE (Neg)
[2024-11-15] MEDS: atorvastatin 20mg tablet PO SCH (08:10)
[2024-11-15] MEDS ORDERED: niacin 250mg tablet PO SCH (08:30)
[2024-11-15 08:40] LABS: ALANINE AMINOTRANSFERASE 33 U/L (12-78); ALBUMIN/GLOBULIN RATIO 0.9 (1.1-1.5); ALKALINE PHOSPHATASE 118 IU/L (46-116); ASPARTATE AMINO TRANSFERASE 19 U/L (10-37); BILIRUBIN,TOTAL 0.6 MG/DL (0.1-1.0); BLOOD UREA NITROGEN 2 MG/DL (7-18); BUN/CREATININE RATIO 2.8 (10.0-20.0); CALCIUM 8.4 MG/DL (8.5-10.1); CHLORIDE 105 MMOL/L (99-107); CREATININE 0.71 MG/DL (0.40-0.90); GLUCOSE 236 MG/DL (70-104); SODIUM 139 MMOL/L (135-145); TOTAL PROTEIN 6.5 G/DL (6.4-8.2); eCRCL 136 ML/MIN; eGFR > 90 ML/MIN
[2024-11-15 08:42] LABS: ANION GAP 23 (8-16)
[2024-11-15 08:43] LABS: TOTAL CARBON DIOXIDE 10.9 MMOL/L (24-32)
[2024-11-15 09:28] LABS: LIPASE 212 U/L (16-77)
[2024-11-15] MEDS: HYDROmorphone inj. 0.5 MG/0.5 ML DISP.SYRIN IV PRN (10:39)
[2024-11-15 10:57] LABS: BASOPHILS # (AUTO) 0.1 X10'3 (0-0.2); BASOPHILS % (AUTO) 0.4 % (0-1); EOSINOPHILS % (AUTO) 0.1 % (0-6); LYMPHOCYTES % (AUTO) 7.1 % (21-51); MEAN PLATELET VOLUME 7.4 FL (7.4-10.4); MONOCYTES # (AUTO) 0.6 X10'3 (0-0.9); MONOCYTES % (AUTO) 4.3 % (2-12); NEUTROPHILS # (AUTO) 12.4 X10'3 (1.8-7.7); NEUTROPHILS % (AUTO) 88.1 % (42-75); PLATELET COUNT 227 X10'3 (140-440)
[2024-11-15 11:21] LABS: HEMOGLOBIN 12.2 g/dl (12.0-16.0)
[2024-11-15 11:30] LABS: HEMATOCRIT 31.3 % (35.0-45.0); HEMOGLOBIN 11.2 g/dl (12.0-16.0); MEAN CORPUSCULAR HEMOGLOBIN 29.9 PG (27.0-31.0); MEAN CORPUSCULAR VOLUME 83.2 FL (78-98); RED BLOOD COUNT 3.76 X10'6 (4.20-5.60)
[2024-11-15 11:31] LABS: MEAN CORPUSCULAR HGB CONC 35.9 g/dL (33.0-36.5); RED CELL DISTRIBUTION WIDTH 13.1 % (11.5-14.5)
[2024-11-15] MEDS: fenofibrate 48mg tablet PO SCH (13:00)
--- NOTE | 2024-11-15 16:11 | PROGRESS NOTE- Residence ---
Progress Note - Resident Providers to CC Resident Creating Document: DAVE UPTON RES ~ Antibiotic Timeout Antibiotic Ordered?: Yes Subjective Patient was seen at the bedside this morning, patient is still having the abdominal pain even on the Dilaudid, patient complained that she was having nausea from the IV morphine. Objective Vital Signs Date Time Temp Pulse Resp B/P (MAP) Pulse Ox O2 Delivery O2 Flow Rate FiO2 11/15/24 15:21 20 11/15/24 06:00 98.3 124 105/61 (76) 99 Room Air 11/15/24 00:40 0 21 Result Diagram: 11/15/24 1033 11/15/24 0701 Vitals were stable at the moment with temp 98.3 F, RI 124 , RR 20, BP 105/61, pulse oximetry 99% on room air. On exam, General: Well alert, well oriented, not confused, not agitated, not in acute distress, well cooperated during the physical. HEENT: Conjunctive are pink, sclerae clear, no icterus, pupil is equal in both sides, reactive to light, no ear discharge, no pharyngeal erythema or an edema, mouth and lips are dry. Neck: Supple, no JVD, no lymphadenopathy and thyromegaly. Lungs: Equal air entry on both lungs, no additional sounds Heart: S1-S2 regular sinus rhythm and, regular rate, no gallops, no rubs, no murmurs Abdomen: No visible peristalsis, Bowel sounds present on auscultation, soft, tenderness at the epigastrium and RHC which was not controlled well, no guarding, no rigidity Extremities: No obvious deformities, no pitting edema bilaterally, capillary refill intact, able to wiggle toes both sides, peripheral pulsations are intact on both sides. She is wearing ankle monitor which is monitor by police. 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 Plan Plan # Recurrent pancreatitis # Hx of pancreatitis # Hx of hypertriglyceridemia # Female Gender transitional Hormonal replacement therapy 11/15/2024: Lipase level increased into the 212, abdominal pain is not controlled well which were associated with the nausea after IV morphine administration (associated with possible spasm of Oddy), patient requested for IV Dilaudid. -continue IV Dilaudid 0.4 mg q.4 PRN. -Her blood was too thick from hypertriglyceridemia which showed 5042, hypercholesterolemia 463 -Started and continue PO Atorvastatin 40 mg QD, and fenofibrate 45 mg q.day. -she needs intense modify heart healthy lifestyle with active exercises. 11/14/2024: Elevated lipase with 120, < 3times of normal upper level 77 -Denies heavy alcohol history, gallstone history, any recent viral infection, Ozempic and other antipsych meds but she has a hx of hyper TG upto >700 before last time admission. -Pending Lipid profile and last time TG was 336 on 06/26/24. -some cases reported with elevated Levels of TG from HRT (low dose estradiol) which in turn can possibly cause Recurrent pancreatitis, plan to hold HRT if no clinical better improvement later -NPO for now -continue IV 0.9% normal saline 150 mL/hr -control the pain with morphine and [place] as needed -control the nausea and vomiting with the IV Zofran -continue IV ciprofloxacin q.12 hours -monitor daily CBC, vital signs for the possible complication of pancreatitis during hospitalization. # T1DM 11/15/2024: Her glucose is averaging around 230s -currently on clear liquid diet -upgraded to sliding scale medium dose regimen, we will need to adjust insulin level as per patient's glucose level. 11/14/2024: Continue lispro, low-dose insulin sliding scale protocol when the patient on NPO -continue daily monitoring -NPO for now, we will encourage enteral feeding if the patient tolerate nausea vomiting abdominal pain # CRC s/p colectomy and ileostomy 11/15/2024: Continue ostomy care and functioning well now. 11/14/2024: Ostomy care -monitoring for any complications including strangulation, inflammation and infection. -suggested following up with the PCP and General surgery for the possible reversible ileostomy as planned in outpatient setting. # history of substance use-ETOH and a nicotine 11/14/2024:-two at nicotine patch 14 g q.day if patient is craving for smoking -monitor alcohol withdrawal clinical symptoms CODE STATUS: Full code DVT prophylaxis: Sc heparin Analgesia/sedation: Dilaudid/[place] Lines/tubes: Peripheral IV Nutrition: Clear Liquid diet Prognosis: Guarded Disposition: Continue medical management including IV fluids, monitor developmental complications for recurrent pancreatitis, diabetes control, pain control, PT eval and DC plan. Resident MD attestation: Patient was seen, examined and discussed with attending , Dr. Harshal UPTON MD Internal Medicine Resident, PGY2 [facility] Date of Service: November 15, 2024 Billing Provider: HAL SANDOVAL MD, TIN, RES November 15, 2024 16:11
[2024-11-15] MEDS: INSULIN LISPRO 100 UNIT/ML INSULN.PEN MULTI-DOSE SQ SCH (18:02)
[2024-11-15] MEDS: potassium Cl 20 mEq SR tablet PO PRN (21:35)
[2024-11-16 05:42] LABS: BASOPHILS # (AUTO) 0.1 X10'3 (0-0.2); BASOPHILS % (AUTO) 0.5 % (0-1); EOSINOPHILS % (AUTO) 0.1 % (0-6); HEMATOCRIT 35.5 % (35.0-45.0); HEMOGLOBIN 12.7 g/dl (12.0-16.0); LYMPHOCYTES # (AUTO) 0.8 X10'3 (1.1-4.8); LYMPHOCYTES % (AUTO) 6.3 % (21-51); MEAN CORPUSCULAR HEMOGLOBIN 29.8 PG (27.0-31.0); MEAN CORPUSCULAR HGB CONC 35.9 g/dL (33.0-36.5); MEAN CORPUSCULAR VOLUME 83.1 FL (78-98); MEAN PLATELET VOLUME 7.6 FL (7.4-10.4); MONOCYTES # (AUTO) 0.5 X10'3 (0-0.9); MONOCYTES % (AUTO) 3.8 % (2-12); NEUTROPHILS # (AUTO) 10.9 X10'3 (1.8-7.7); NEUTROPHILS % (AUTO) 89.3 % (42-75); PLATELET COUNT 173 X10'3 (140-440); RED BLOOD COUNT 4.27 X10'6 (4.20-5.60); RED CELL DISTRIBUTION WIDTH 13.8 % (11.5-14.5); WHITE BLOOD COUNT 12.2 X10'3 (4.5-11.0)
[2024-11-16 05:52] LABS: TOTAL CARBON DIOXIDE 18.4 MMOL/L (24-32)
[2024-11-16 06:00] VITALS: BP 96/51; PULSE 109; RESP 15; TEMP 97.7; O2SAT 96
[2024-11-16 07:04] LABS: ALANINE AMINOTRANSFERASE 26 U/L (12-78); ALBUMIN 2.4 G/DL (3.4-5.0); ALBUMIN/GLOBULIN RATIO 0.7 (1.1-1.5); ALKALINE PHOSPHATASE 96 IU/L (46-116); ANION GAP 13 (8-16); ASPARTATE AMINO TRANSFERASE 18 U/L (10-37); BILIRUBIN,TOTAL 0.6 MG/DL (0.1-1.0); BLOOD UREA NITROGEN 4 MG/DL (7-18); BUN/CREATININE RATIO 5.2 (10.0-20.0); CALCIUM 8.6 MG/DL (8.5-10.1); CHLORIDE 101 MMOL/L (99-107); CREATININE 0.77 MG/DL (0.40-0.90); GLUCOSE 213 MG/DL (70-104); LIPASE 82 U/L (16-77); SODIUM 132 MMOL/L (135-145); eCRCL 126 ML/MIN; eGFR 89 ML/MIN
[2024-11-16 07:06] LABS: POTASSIUM 3.4 MMOL/L (3.5-5.1)
[2024-11-16 07:51] VITALS: RESP 16
[2024-11-16 10:00] VITALS: BP 97/55; PULSE 110; RESP 14; TEMP 97.5; O2SAT 98
[2024-11-16 11:00] VITALS: RESP 16
[2024-11-16] MEDS ORDERED: ACET-1008 PO ×2 (11:34→11:37)
[2024-11-16] MEDS ORDERED: ATOR20TA66 PO (11:36)
[2024-11-16] MEDS ORDERED: PANT-47 PO (11:36)
[2024-11-16] MEDS ORDERED: FENO48TA10 PO (11:36)
[2024-11-16] MEDS ORDERED: CIPR250T4 PO (11:36)
[2024-11-16 12:45] LABS: BILIRUBIN,URINE SMALL (Neg); CLARITY,URINE CLEAR (Clear); COLOR,URINE YELLOW (Yellow); GLUCOSE, URINE >=1000 mg/dl (Neg); KETONES,URINE >=80 mg/dl (Neg); LEUKOCYTE ESTERASE ,URINE NEGATIVE (Neg); OCCULT BLOOD,URINE SMALL (Neg); PROTEIN,URINE TRACE mg/dl (Neg); UROBILINOGEN,URINE 0.2 E.U/dL (0.2-1.0)
[2024-11-16 12:49] LABS: UA COLLECTION TYPE NON-SPECIFIED
[2024-11-16 12:50] LABS: NITRITES, URINE NEGATIVE (Neg)
[2024-11-16 12:53] LABS: MUCUS STRANDS FEW /LPF (Neg); SQUAMOUS EPITHELIAL CELL,UR FEW /LPF (FEW)
[2024-11-16 12:56] LABS: BACTERIA,URINE FEW /HPF (Neg); RBC,URINE 0-2 /HPF (0-2); WBC,URINE 0-4 /HPF (0-4)
--- NOTE | 2024-11-16 14:49 | DISCHARGE SUMMARY-Residence ---
Discharge Summary Providers to CC Resident Creating Document: WONDAVE, RES ~ Discharge Summary Admission Diagnosis: acute pancreatitis Hospital Course DATE OF ADMISSION: 11/14/2024 DATE OF DISCHARGE: 11/16/2024 Discharge Diagnosis\Comment: # Recurrent pancreatitis # Hx of pancreatitis # Hx of hypertriglyceridemia # Female Gender transitional Hormonal replacement therapy # T1DM # CRC s/p colectomy and ileostomy # History of substance use-ETOH and a nicotine Operations\Procedures: None Consultants: None Complications: None Condition on DC: Stable New Medications: Ciprofloxacin HCl (Ciprofloxacin HCl) 250 Mg Tablet 1 TAB PO Q12H for 5 Days, #10 TAB 0 Refills Pantoprazole Sodium (PROTONIX tablet) 40 Mg Tablet.dr 1 TAB PO DAILY for 30 Days, #30 TAB 0 Refills Atorvastatin Calcium (Atorvastatin Calcium) 20 Mg Tablet 40 MG PO DAILY for 30 Days, #30 TAB Fenofibrate Nanocrystallized (Fenofibrate) 48 Mg Tablet 48 MG PO DAILY@0830 for 30 Days, #30 TAB Continued Medications: Atomoxetine HCl (Atomoxetine HCl) 40 Mg Capsule 1 CAP PO QAM for 30 Days, #30 CAP 0 Refills Fluoxetine Hcl (Fluoxetine Hcl) 40 Mg Capsule 1 CAP PO DAILY for 30 Days, #30 CAP 0 Refills Insulin Glargine,Hum.rec.anlog* (Lantus*) 100 Unit/1 Ml Vial 20 UNITS SUBCUT BID for 30 Days, #12 ML Insulin Lispro (Humalog) 100 Unit/Ml Insuln.pen 0 UNIT SQ ACHS for 30 Days, #1 UNIT SLIDING SCALE, MEALTIME INSULIN LESS THAN 150: 0 UNITS 150-199: 2 UNITS 200-249: 4 UNITS 250-299: 7 UNITS 300-349: 10 UNITS 350-400: 13 UNITS GREATER THAN 400: CALL Ondansetron HCl (Ondansetron HCl) 8 Mg Tablet 1 TAB PO Q8H for nausea/vomiting for 3 Days, #24 TAB 0 Refills Discharge Summary: A 29 years old Ms. 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 Hospital course: Patient was admitted to the medical floor for monitoring her abdominal pain along with nausea and vomiting due to recurrent pancreatitis for the possible transition to the complications of pancreatits, found to have severe hypertriglyceridemia on HRT therapy. Her Lipase on admission was 120, and repeated on next day showed 212. Denies heavy alcohol history, gallstone history, any recent viral infection, Ozempic and other antipsych meds. She was put on the NPO on admission since she could not tolerate oral feeding at all, which was advanced into the full liquid diet and gradually transitioned into the regular diet to make sure if she could tolerate it before she was sent home. She was given generous amount of IV fluid replacement with a 0.9% normal saline 150 mL/hr, her abdominal pain was controlled with the [place]/Dilaudid as needed. Nausea and vomiting were controlled with IV Zofran as needed, she was started on IV ciprofloxacin q.12 hours for two days, which was switched into oral for another five days. Her type 1 diabetes mellitus was controlled well with given sliding scale medium dose regimen in addition of lispro injection to maintain her hospital random blood sugar level ranging between 140-180. She has ileost sindy which was care with the ostomy care. DVT prophylaxis was achieved with the sc heparin. All of her concerns and questions were answered with the best knowledge of our team before she was discharged home today including education about relationship between HRT and hypertriglyceridemia which in turn can cause acute recurrent pancreatitis, compliance of taking anti-lipid medications and suggested to follow up with PCP and endocrinology for further management. Her lipid profile showed triglycerides 5042, cholesterol 463, LDL 134, HDL 42. Today, her labs were review WNL with WBC 12.2, hemoglobin 12.7, hematocrit 35.5, platelet count 173, serum sodium 132, potassium 3.4, BUN four, creatinine 0.77, RBS 219 lipase 82. her vitals were stable at the moment with temp 97.5 F, DC 110, RR 14, BP 97/55 mm Hg, pulse oximetry 98% on room air. On exam, General: Well alert, well oriented, not confused, not agitated, not in acute distress, well cooperated during the physical. HEENT: Conjunctive are pink, sclerae clear, no icterus, pupil is equal in both sides, reactive to light, no ear discharge, no pharyngeal erythema or an edema, mouth and lips are dry. Neck: Supple, no JVD, no lymphadenopathy and thyromegaly. Lungs: Equal air entry on both lungs, no additional sounds Heart: S1-S2 regular sinus rhythm and, regular rate, no gallops, no rubs, no murmurs Abdomen: No visible peristalsis, Bowel sounds present on auscultation, soft, tenderness at the epigastrium and RHC which was not controlled well, no guarding, no rigidity Extremities: No obvious deformities, no pitting edema bilaterally, capillary refill intact, able to wiggle toes both sides, peripheral pulsations are intact on both sides. She is wearing ankle monitor which is monitor by police. 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: No focal neurological deficits, no motor and sensory weakness in all 4 extremities, could move all 4 extremities Musculoskeletal: No joint swelling, deformities, inflammations, and no scoliosis and back tenderness Skin: No active skin lesions and rashes Discharge instruction: -return to the ER for any emergency situtaion including intolerable progressive abdominal pain, progressive nausea and vominting which is uncontrallable etc -Needs to follow up with PCP and Endocrinology for the recheck blood works (CBC CMP Lipase and ESR in 5 days after discharge), and endocrinology for the further hormonal replacement therapy which is causing intolerable severe high TG levels which might turn to cause the recurrent pancreatitis -Advance the diet as she can tolerate from the full liquid to the full regular diet if no nausea and vomiting and abdominal pain. -needs intense lifestyle modification with the heart healthy diet and active regular exercise to reduce the cholersterol levels. -ADHD medications couls also contribute to the recurrent pancreatitis. -COntinue taking Atorvastatin and Fenofibrate for your High Triglceride levels and being complaince is important -Optimal hydration status Resident MD attestation: Patient was seen, examined and discussed with attending MD, Dr. Lucas UPTON MD Internal Medicine Resident, PGY2 [facility] *Problems/Diagnosis: (1) Pancreatitis Status: Chronic (2) Insulin dependent diabetes mellitus Status: Chronic Total Time Spent on D/C: > 30 Minutes Date of Service: November 16, 2024 Billing Provider: ALTAF CARLSON MD Common Visit Codes: 22354-FRB/OBS DISCH DAY >30min DAVE UPTON RES November 16, 2024 14:49 ALTAF CARLSON MD November 16, 2024 18:41
[2024-11-16] MEDS ORDERED: FAMO20TA8 PO (16:47)
[2024-11-16] MEDS ORDERED: ONDA-104 PO (16:47)
== END 2024-11-16 16:50 | disposition home or self-care (01) | DRG 282 ==
LOC: ER 12:52 → ED HOLD 16:44 → ORTHO 4S 17:27
PROVIDERS: ADMIT Internal Medicine; ATTEND Internal Medicine
PROC: BW211ZZ Computerized Tomography (CT Scan) of Abdomen and Pelvis using Low Osmolar Contrast (ICD-10-PCS; principal; 2024-11-14)
DX: K85.90 Acute pancreatitis without necrosis or infection, unspecified (principal); E10.9 Type 1 diabetes mellitus without complications; E78.1 Pure hyperglyceridemia; Z79.4 Long term (current) use of insulin; Z91.018 Allergy to other foods; Z79.899 Other long term (current) drug therapy; Z93.2 Ileostomy status
CPT/HCPCS: 36415; 74176; 80053; 80061; 80305; 81001; 81025; 82009; 82150; 82948; 83605; 83690; 84145; 85025; 85651; 87040; 87081; 96374; 96375; 96376; 99285; G0378; J0744; J0780; J1171; J1644; J1815; J2270; J2405; J7030

== ENCOUNTER 2024-12-02 08:01 | Inpatient (IN) | payer MEDICAID ==
[~2024-12-02] VITALS: Ht 185.4 cm; Wt 91.0 kg
[~2024-12-02 08:01] MED LIST changes: +ACET-1008 PO; +ATOR20TA66 PO; +CIPR250T4 PO; +FAMO20TA8 PO; +FENO48TA10 PO; -GEMF600T PO; -NICO-631 TD
--- NOTE | 2024-12-02 08:15 | ELECTROCARDIOGRAPH REPORT ---
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 Gordo Hartman Measurements Intervals [place] Rate: 104 P: 30 AL: 139 QRS: 40 QRSD: 80 T: 37 QT: 319 QTc: 420 Interpretive Statements Sinus tachycardia Low voltage, extremity leads Abnormal Q suggests anterior infarct Baseline wander in lead(s) II,aVR,aVF,V2,V5 Electronically Signed On 12-12-2024 17:55:[address] Gordo Hartamn Please click the below link to view image of tracing.
--- NOTE | 2024-12-02 08:25 | Physician Documentation ---
History of Present Illness Chief Complaint: Abdominal Pain w/vomiting Stated Complaint: ABD PAIN Time Seen by MD: 08:21 Primary Medical Doctor: KANIKA HPI 29-year-old trans female presents to the emergency department with abdominal pain, history of colon cancer and a colostomy, also history of gender reassignment surgery last year male to female, states that they delayed the reanastomosis procedure due to gender reassignment surgical procedure the last year. Patient states last output from the colostomy was yesterday around 10:00 a.m., has fairly significant abdominal discomfort and pain, requesting water. Timing/Duration: days Quality/Severity: moderate Location: diffuse Activities on Onset: spontaneous Medication Reconciliation Allergies: Coded Allergies: pantoprazole (Verified Allergy, Intermediate, 12/02/24) pineapple (Verified Allergy, Unknown, 12/02/24) Scheduled Acetaminophen (Tylenol), 650 MG PO Q6H PRN PAIN, (Reported) Atomoxetine HCl (Atomoxetine HCl), 1 CAP PO QAM, (Reported) Atorvastatin Calcium (Atorvastatin Calcium), 40 MG PO DAILY Ciprofloxacin HCl (Ciprofloxacin HCl), 1 TAB PO Q12H Emtricitabine/Tenofov Alafenam (Descovy 200-25 mg Tablet), 1 TAB PO DAILY, (Reported) Estradiol Cypionate (Depo-Estradiol), 0.2 ML IM Q7D, (Reported) Famotidine (Famotidine), 1 TAB PO Q12H Fenofibrate Nanocrystallized (Fenofibrate), 48 MG PO DAILY@0830 Fluoxetine Hcl (Fluoxetine Hcl), 1 CAP PO DAILY, (Reported) Fluoxetine Hcl (Fluoxetine Hcl), 1 CAP PO DAILY, (Reported) Insulin Glargine,Hum.rec.anlog* (Lantus*), 20 UNITS SUBCUT BID Insulin Lispro (Humalog), 0 UNIT SQ ACHS Ondansetron HCl (Ondansetron HCl), 1 TAB PO Q8H Scheduled PRN Acetaminophen (Tylenol), 1 TAB PO QDAY PRN PRN for pain or fever, (Reported) Miscellaneous Medications Insulin Lispro (Insulin Lispro Kwikpen U-100), SQ, (Reported) Past Medical History Past Medical History: No Pertinent History, Diabetes, Colon Cancer Past Surgical History: no surgical history, colectomy Patient History: FH: ADHD (attention deficit hyperactivity disorder) MOTHER, Name: Leisa Jung, Born 02/07/71, , Not a twin, Race: / FH: [place] (myocardial infarction) FATHER, Name: Harmeet Perez, Born 12/20/76, Age: 47, Not a twin, Race: OTHER RACE FH: asthma MOTHER, Name: Leisa Jung, Born 02/07/71, , Not a twin, Race: / FH: diabetes mellitus FATHER, Name: Harmeet Perez, Born 12/20/76, Age: 47, Not a twin, Race: OTHER RACE Lives with: Family Lives In: Other 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 Physical Exam Vital Signs: Temperature: 97.7, Source: Oral, Heart Rate: 101, Respiratory Rate : 20, BP: 123/80, Pulse Oximetry: 100, Weight: 91.000 Oxygen Flow Rate: 0 Pulse Oximetry Reflects: adequate oxygenation General Appearance: alert, mild distress EENT: normal ENT inspection, pharynx normal Neck: normal inspection, full range of motion, supple, non-tender Respiratory: lungs clear, no respiratory distress Chest: no accessory muscle use, chest non-tender Cardiovascular: regular rate, rhythm, no edema Gastrointestinal: tenderness, guarding Gastrointestinal There is a colostomy in the right upper abdominal wall. External Genitalia: normal; No: lesions present /Pelvic There is external genitalia consistent with male to female transgender surgery operation Extremities: normal range of motion Neurologic: oriented x4 Psychiatric: anxiety Progress Results/Orders Results/Orders Orders - KASEY TSE DO Urinalysis, Cult If Indicated (12/02/24 08:13) Hcg, Ur Ql (12/02/24 08:13) Cbc/Diff (12/02/24 08:13) BMP (12/02/24 08:13) Lipase (12/02/24 08:13) CMP (12/02/24 08:13) Completed Orders - KASEY TSE DO Electrocardiogram (12/02/24 ) Vital Signs 12/02/24 08:04 Temp 97.7 Pulse 101 Resp 20 B/P (MAP) 123/80 Pulse Ox 100 O2 Flow Rate 0 EKG/XRAY/CT/US/VASC/MRI EKG : Additional Comment Sinus tachycardia rate of 104, low voltage, normal axis, abnormal Q suggest an anterior infarct, abnormal EKG. CT : Impression [facility] [address] , [place], [place] - [address] CAT SCAN Patient: KINGA PEREZ Medical Record: [id number] [facility] : 1995, Age: 29 Sex: Female Location: ER Patient Status: [facility] ER Service Date/Time: 12/02/24824 Ordering Physician: KASEY TSE DO Exam: CT ABDOMEN PELVIS EXAM: CT CT ABDOMEN PELVIS W/ IV CONTRAST HISTORY: SBO, history of colon cancer COMPARISON: CT CT ABDOMEN PELVIS on DOS: 11/14/24, CT CT ABDOMEN PELVIS W/ IV CONTRAST on DOS: 06/23/24, CT CT ABDOMEN PELVIS on DOS: 06/01/24 TECHNIQUE: Helical CT images of the abdomen and pelvis were performed with 100 mL omnipaque 300 IV contrast. Sagittal and coronal reformatted images were obtained. This CT exam was performed using 1 or more of the following dose reduction techniques: Automated exposure control, adjustment of the mA and/or kv according to patient size, or the use of iterative reconstruction techniques. Radiation Dose Information: CT Dose: CTDI volume is 20.3 mGy. Dose-length p roduct is 1043.81 mGy*cm FINDINGS: CT abdomen: There are bilateral breast implants, not fully imaged here. The lung bases are clear. The heart is not enlarged. There is a left upper quadrant splenule. The liver, spleen, gallbladder, kidneys, and adrenal glands are unremarkable. There is a small amount of peripancreatic fluid. No evidence of pancreatic parenchymal necrosis. No abdominal aortic aneurysm or dissection. CT pelvis: No abnormal bowel dilatation, free air, or free fluid. There are postoperative changes near total colectomy with Ying's pouch and right lower quadrant ileostomy. The urinary bladder is unremarkable. There are mild degenerative changes of the spine and hips. IMPRESSION: 1. Mild acute pancreatitis. No CT evidence pancreatic parenchymal necrosis. Correlate with appropriate lab testing. 2. Postoperative changes of bilateral breast implants, near total colectomy pouch, and right lower quadrant ileostomy. 3. No evidence of bowel obstruction or other acute process in the abdomen or pelvis. Electronically Signed by:REYNA VITALE MD Date & Time: 12/02/24 1104 Dictated by: REYNA VITALE MD Dictation date and time: 12/02/24 1015 Primary Care Provider: NO PRIMARY CARE PROVIDER cc: KASEY TSE DO ~ Medical Decision Making Differential Dx:Considerations: Include: Appendicitis, Bowel obstruction, Cholangitis, Esophageal rupture, Gastritis/PUD, Gastroenteritis, GI hemorrhage, Hernia, Pancreatitis Heart Score: Heart Score Response (Comments) Value History N/A 0 EKG N/A 0 Age N/A 0 Risk Factors N/A 0 Troponin N/A 0 Total 0 Departure Disposition: 09 ADMITTED INPATIENT Admitted to Inpatient Unit: to hospitalist Impression: Primary Impression: Acute pancreatitis Additional Impression: Abdominal pain Referrals: NO PRIMARY CARE PROVIDER (PCP) Signature Scribe Signature: When Attestation: Dictated by myself KASEY TSE DO Dec 02, 2024 08:25
[2024-12-02] MEDS: normal saline 1000ml 1,000 ML IV SCH ×2 (08:48→12:53)
[2024-12-02] MEDS: ondansetron/PF 4mg/2ml inj IV ONE (08:48)
[2024-12-02] MEDS: HYDROmorphone 1 mg/ml syringe IV ONE ×2 (08:49→11:56)
[2024-12-02] MEDS ORDERED: iohexol 300mg/ml 100ml inj. ONE (09:11)
[2024-12-02 09:23] LABS: BILIRUBIN,URINE NEGATIVE (Neg); COLOR,URINE STRAW (Yellow); GLUCOSE, URINE >=1000 mg/dl (Neg); KETONES,URINE >=80 mg/dl (Neg); LEUKOCYTE ESTERASE ,URINE NEGATIVE (Neg); NITRITES, URINE NEGATIVE (Neg); OCCULT BLOOD,URINE SMALL (Neg); PH,URINE 5.5 (4.8-8.0); PROTEIN,URINE 30 mg/dl (Neg); UROBILINOGEN,URINE 0.2 E.U/dL (0.2-1.0)
[2024-12-02] MEDS ORDERED: EMTR1TAB18 PO (09:23)
[2024-12-02] MEDS ORDERED: DEP5I IM (09:23)
[2024-12-02] MEDS ORDERED: INSU100I61 SQ (09:23)
[2024-12-02 09:31] LABS: URINE HCG NEGATIVE (NEG)
[2024-12-02 09:33] LABS: BASOPHILS # (AUTO) 0.2 X10'3 (0-0.2); BASOPHILS % (AUTO) 1.2 % (0-1); EOSINOPHILS # (AUTO) 0.2 X10'3 (0-0.9); EOSINOPHILS % (AUTO) 1.3 % (0-6); HEMATOCRIT 42.2 % (35.0-45.0); HEMOGLOBIN 17.9 g/dl (12.0-16.0); LYMPHOCYTES # (AUTO) 3.4 X10'3 (1.1-4.8); LYMPHOCYTES % (AUTO) 22.5 % (21-51); MEAN CORPUSCULAR HGB CONC 42.4 g/dL (33.0-36.5); MEAN CORPUSCULAR VOLUME 84.8 FL (78-98); MEAN PLATELET VOLUME 7.8 FL (7.4-10.4); MONOCYTES # (AUTO) 0.9 X10'3 (0-0.9); NEUTROPHILS # (AUTO) 10.4 X10'3 (1.8-7.7); PLATELET COUNT 343 X10'3 (140-440); RED BLOOD COUNT 4.98 X10'6 (4.20-5.60); RED CELL DISTRIBUTION WIDTH 13.7 % (11.5-14.5); WHITE BLOOD COUNT 15.1 X10'3 (4.5-11.0)
[2024-12-02 09:37] LABS: CLARITY,URINE SLIGHTLY CLOUDY (Clear); UA COLLECTION TYPE CLN CATCH MIDSTREAM
[2024-12-02 09:39] LABS: BACTERIA,URINE FEW /HPF (Neg); FINE GRANULAR CAST 0-3 /LPF (NEGATIVE); MUCUS STRANDS NONE SEEN /LPF (Neg); RBC,URINE 0-2 /HPF (0-2); SQUAMOUS EPITHELIAL CELL,UR FEW /LPF (FEW)
[2024-12-02 10:17] LABS: ALANINE AMINOTRANSFERASE 32 U/L (12-78); ALBUMIN 4.1 G/DL (3.4-5.0); ALKALINE PHOSPHATASE 179 IU/L (46-116); BILIRUBIN,TOTAL 0.6 MG/DL (0.1-1.0); BLOOD UREA NITROGEN 11 MG/DL (7-18); BUN/CREATININE RATIO 12.1 (10.0-20.0); CALCIUM 9.5 MG/DL (8.5-10.1); CHLORIDE 105 MMOL/L (99-107); CREATININE 0.91 MG/DL (0.40-0.90); GLUCOSE 355 MG/DL (70-104); LIPASE 285 U/L (16-77); SODIUM 140 MMOL/L (135-145); TOTAL PROTEIN 8.3 G/DL (6.4-8.2); eCRCL 110 ML/MIN; eGFR 74 ML/MIN
[2024-12-02 10:24] LABS: ANION GAP 30 (8-16); ASPARTATE AMINO TRANSFERASE 20 U/L (10-37)
--- NOTE | 2024-12-02 11:06 | RADIOLOGY REPORT ---
EXAM: CT CT ABDOMEN PELVIS W/ IV CONTRAST HISTORY: SBO, history of colon cancer COMPARISON: CT CT ABDOMEN PELVIS on DOS: 11/14/24, CT CT ABDOMEN PELVIS W/ IV CONTRAST on DOS: 06/23/24, CT CT ABDOMEN PELVIS on DOS: 06/01/24 TECHNIQUE: Helical CT images of the abdomen and pelvis were performed with 100 mL omnipaque 300 IV c ontrast. Sagittal and coronal reformatted images were obtained. This CT exam was performed using 1 or more of the following dose reduction techniques: Automated exposure control, adjustment of the mA an d/or kv according to patient size, or the use of iterative reconstruction techniques. Radiation Dose Information: CT Dose: CTDI volume is 20.3 mGy. Dose-length product is 1043.81 mGy*cm FINDINGS: CT abdomen: There are bilateral breast implants, not fully imaged here. The lung bases are clear. The heart is not enlarged. There is a left upper quadrant splenule. The liver, spleen, gallbladder, kidn eys, and adrenal glands are unremarkable. There is a small amount of peripancreatic fluid. No evidenc e of pancreatic parenchymal necrosis. No abdominal aortic aneurysm or dissection. CT pelvis: No abnormal bowel dilatation, free air, or free fluid. There are postoperative changes james r total colectomy with Ying's pouch and right lower quadrant ileostomy. The urinary bladder is un remarkable. There are mild degenerative changes of the spine and hips. IMPRESSION: 1. Mild acute pancreatitis. No CT evidence pancreatic parenchymal necrosis. Correlate with appropriat e lab testing. 2. Postoperative changes of bilateral breast implants, near total colectomy pouch, and right lower qu adrant ileostomy. 3. No evidence of bowel obstruction or other acute process in the abdomen or pelvis.
[2024-12-02] MEDS ORDERED: acetaminophen 325mg tablet PO PRN ×2 (11:40)
[2024-12-02] MEDS ORDERED: magnesium sulf-water 4G/100mL 100 ML IV PRN (11:40)
[2024-12-02] MEDS ORDERED: magnesium Cl slow-release 64mg tablet PO PRN (11:40)
[2024-12-02] MEDS ORDERED: HYDROcodone/acetaminophen 5mg/325mg tablet PO PRN (11:40)
[2024-12-02] MEDS ORDERED: HYDROcodone/acetaminophen 10/325mg tab PO PRN (11:40)
[2024-12-02] MEDS ORDERED: magnesium sulf-water 2g/50mL 50 ML IV PRN (11:40)
[2024-12-02] MEDS: CefTRIAXone 2gm/D5W 50ml BAG 50 ML IV SCH (12:53)
[2024-12-02 13:11] LABS: BILIRUBIN,URINE NEGATIVE (Neg); CLARITY,URINE CLEAR (Clear); COLOR,URINE YELLOW (Yellow); GLUCOSE, URINE 500 mg/dl (Neg); KETONES,URINE >=80 mg/dl (Neg); LEUKOCYTE ESTERASE ,URINE NEGATIVE (Neg); NITRITES, URINE NEGATIVE (Neg); OCCULT BLOOD,URINE SMALL (Neg); PROTEIN,URINE 30 mg/dl (Neg); UROBILINOGEN,URINE 0.2 E.U/dL (0.2-1.0)
[2024-12-02 13:12] LABS: UA COLLECTION TYPE VOIDED
[2024-12-02 13:35] LABS: RBC,URINE 0-2 /HPF (0-2); WBC,URINE 0-4 /HPF (0-4)
[2024-12-02 13:36] LABS: AMORPHOUS URATES 1+; BACTERIA,URINE FEW /HPF (Neg); MUCUS STRANDS FEW /LPF (Neg); SQUAMOUS EPITHELIAL CELL,UR FEW /LPF (FEW); TRANSITIONAL EPI CELLS,URINE FEW /HPF
[2024-12-02] MEDS: HYDROmorphone inj. 0.5 MG/0.5 ML DISP.SYRIN IV PRN (14:40)
[2024-12-02] MEDS: ondansetron/PF 4mg/2ml inj IV PRN (14:40)
--- NOTE | 2024-12-02 15:12 | HISTORY AND PHYSICAL-Residence ---
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 The patient states that she has been experiencing pain for one month. She was discharged on 11/16/2024 from [facility] after being treated for acute pancreatitis. The patient states that she has been feeling mild abdominal pain after discharge. Getting worse during the last week. Scaling it as a 9/10 in intensity localized in the level of the epigastrium, without radiation, stabbing type, reason for which the patient decided to come to the hospital. Currently denies any chest pain, shortness of breath, palpitations, urinary symptoms. Allergies: Coded Allergies: pantoprazole (Verified Allergy, Intermediate, 12/02/24) pineapple (Verified Allergy, Unknown, 12/02/24) Home Medications Home Medications Active Ondansetron HCl 8 Mg Tablet 1 Tab PO Q8H 10 Days Famotidine 20 Mg Tablet 1 Tab PO Q12H 30 Days Ciprofloxacin HCl 250 Mg Tablet 1 Tab PO Q12H 5 Days Atorvastatin Calcium 20 Mg Tablet 40 Mg PO DAILY 30 Days Fenofibrate (Fenofibrate Nanocrystallized) 48 Mg Tablet 48 Mg PO DAILY@0830 30 Days Humalog (Insulin Lispro) 100 Unit/Ml Insuln.pen 0 Unit SQ ACHS 30 Days SLIDING SCALE, MEALTIME INSULIN LESS THAN 150: 0 UNITS 150-199: 2 UNITS 200-249: 4 UNITS 250-299: 7 UNITS 300-349: 10 UNITS 350-400: 13 UNITS GREATER THAN 400: CALL Lantus* (Insulin Glargine) 100 Unit/1 Ml Vial 20 Units SUBCUT BID 30 Days Reported Descovy 200-25 mg Tablet (Emtricitabine/Tenofov Alafenam) 200 Mg-25 Mg Tablet 1 Tab PO DAILY Insulin Lispro Kwikpen U-100 (Insulin Lispro) 100 Unit/Ml Insuln.pen SQ Fluoxetine Hcl 40 Mg Capsule 1 Cap PO DAILY Depo-Estradiol (Estradiol Cypionate) 5 Mg/1 Ml Vial 0.2 Ml IM Q7D Tylenol (Acetaminophen) 325 Mg Tablet 650 Mg PO Q6H PRN PAIN 10 Days Tylenol (Acetaminophen) 325 Mg Tablet 1 Tab PO QDAY PRN PRN 30 Days Atomoxetine HCl 40 Mg Capsule 1 Cap PO QAM 30 Days Fluoxetine Hcl (Fluoxetine HCl) 40 Mg Capsule 1 Cap PO DAILY 30 Days Past Medical History Past Medical History Colon cancer s/p colectomy with ileostomy. Recurrent pancreatitis. Hypertriglyceridemia. Female gender transition, completed hormone therapy in July 2023. Type 1 diabetes mellitus. History of diabetic ketoacidosis. History of alcohol use. Substance use disorder. Past Surgical History Surgical History Comment Vaginoplasty in November 2023. Colectomy due to colon cancer, with ileostomy. Appendectomy. Family History Family History: FH: ADHD (attention deficit hyperactivity disorder) MOTHER, Name: Leisa Jung, Born 02/07/71, , Not a twin, Race: / FH: MS (myocardial infarction) FATHER, Name: Harmeet Mahan, Born 12/20/76, Age: 47, Not a twin, Race: OTHER RACE FH: asthma MOTHER, Name: Leisa Jung, Born 02/07/71, , Not a twin, Race: / FH: diabetes mellitus FATHER, Name: Harmeet Mahan, Born 12/20/76, Age: 47, Not a twin, Race: OTHER RACE Past Social History Smoking: Non-Smoker, Less than 1 pack/day (The patient smokes half a pack a day for 3-5 years. Last time he smoked two weeks ago.) Alcohol Use: Heavy (She states drinking wine, as per patient occasionally.) Drug Use: Marijuana (She endorses using marijuana.) Lives with: Family Lives In: Other 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 ROS All Other Systems: Reviewed and Negative Exam Vitals: Vital Signs Date Time Temp Pulse Resp B/P (MAP) Pulse Ox O2 Delivery O2 Flow Rate FiO2 12/02/24 14:51 103 14 123/74 (90) 98 0 12/02/24 08:04 97.7 Physical exam: General: Well alert, well oriented, not confused, not agitated, not in acute distress, well cooperated during the physical. HEENT: Conjunctive are pink, sclerae clear, no icterus, pupil is equal in both sides, reactive to light, no ear discharge, no pharyngeal erythema or an edema. Neck: Supple, no JVD, no lymphadenopathy and thyromegaly. Chest: Equal air entry on both lungs, no additional sounds no rhonchi no wheezing at the moment. Cardiovascular: S1-S2 regular sinus rhythm and, regular rate, no gallops, no rubs, no murmurs Abdomen: No visible peristalsis, Bowel sounds present on auscultation, tenderness at the level of the epigastrium, presence of ileostomy bag at the level of the right abdomen. Presence of formed stool in the colostomy bag. Extremities: No obvious deformities, no pitting edema bilaterally, capillary refill intact, peripheral pulsations are intact on both sides Central Nervous System: No focal neurological deficits, no motor or sensory weakness in all 4 extremities, could move all 4 extremities, 2+ deep tendon reflexes, negative Babinski. Musculoskeletal: No joint swelling, deformities, inflammations, and no scoliosis and back tenderness Skin: Warm and dry. Diagnostic Data Last Recorded Lab Results: 12/02/24 0822 12/02/24 0822 Counseling Services Smoking & Tobacco Cessation: 3-10 Minutes (I spent 12 minutes discussing smoking cessation with the patient including the risk of continuing to smoke: Lung cancer, stroke, heart attack, poor wound healing, increased in fascial wrinkling, cigarette smoke also leads a foul smell on clothing and fabrics, risk of MRSA skin infections. The expense of smoking cigarettes and how cigarettes have been scientifically engineered to be as addictive as humanly possible. The patient declined a nicotine patch at this time.) Advance Care Planning Advanced Care plannin - 30 Minutes (I spent a total of 17 minutes on reviewing various resuscitative measures/ACP with the patient at the time of admission. The patient has decided on a full code status.) Additional Plan Assessment and plan: 29-year-old female patient came to the hospital with abdominal pain. Abdominal pain: Acute pancreatitis: Possible alcoholic pancreatitis: The patient came to the hospital with chief complaint of abdominal pain localized at the level of the epigastrium. Lipase levels 285. CT scan of the abdomen: Mild acute pancreatitis. No CT evidence pancreatic parenchymal necrosis. Correlate with appropriate lab testing. Postoperative changes of bilateral breast implants, near total colectomy pouch, and right lower quadrant ileostomy. No evidence of bowel obstruction or other acute process in the abdomen or pelvis. Follow-up lipid panel. NPO. LR at 150 mL/hour. Pain control with Dilaudid. Sepsis secondary to Urinary tract infection/cystitis: Sepsis criteria: (WBC: 12.1, HR>90, RR>20, presence of source of infection): Urinalysis positive for urinary tract infection. Follow-up urine and blood culture. Ceftriaxone 1 g IV daily. Culturelle [address] mmu [address].i.d. Type 1 diabetes mellitus: Glucose levels strict 155: Last hemoglobin A1c on May,: 10.0 Follow-up hemoglobin A1c. Hyperglycemia/hypoglycemia protocol in place. Insulin glargine 18 units HS, medium dose short-acting insulin sliding scale. Code status: Full code DVT prophylaxis: SCDs Analgesia/sedation: Dilaudid Line/tube: PIV GI prophylaxis: None Nutrition: NPO PT: No Prognosis: Guarded Disposition: The patient will be admitted to ortho floor. Leonard Ken Internal Medicine Resident [facility] Date of Service: Dec 02, 2024 Billing Provider: ALTAF CARLSON MD Common Visit Codes: [id number] INP/OBS CARE (HIGH) Secondary Visit Codes: [id number] CARE PLAN 30 MINUTES LEONARD AWAN, RES Dec 02, 2024 15:12 ALTAF CARLSON MD Dec 02, 2024 18:35
[2024-12-02] MEDS ORDERED: dextrose 50%-water 50ml dispensing syringe IV PRN ×3 (16:05→18:40)
[2024-12-02] MEDS ORDERED: DEXTROSE 15 GM of carb/4 tabs (each vial/BOTTLE has 4 tablets) PO PRN ×2 (16:05)
[2024-12-02] MEDS ORDERED: glucagon, human recombinant 1mg kit SUBCUT PRN (16:05)
[2024-12-02] MEDS: metoclopramide 5 mg/ml inj IV ONE (16:19)
[2024-12-02] MEDS: ringers solution, lacted 1,000 ML IV SCH ×3 (16:28→19:29)
[2024-12-02] MEDS: proCHLORperazine 10 MG/2 ml inj IV PRN (17:00)
[2024-12-02] MEDS: HYDROmorphone inj. 0.5 MG/0.5 ML DISP.SYRIN IV ONE (17:03)
[2024-12-02 17:43] LABS: HDL CHOLESTEROL 35 MG/DL (35-60); LDL CHOLESTEROL 69 MG/DL (50-100)
[2024-12-02 18:13] LABS: C-REACTIVE PROTEIN < 0.05 MG/DL (0.0-0.5)
[2024-12-02 18:18] LABS: CHOL/HDL RATIO 18.4 (0.00-4.99); CHOLESTEROL 643 MG/DL (0-200)
[2024-12-02 18:19] LABS: TRIGLYCERIDES 7269 MG/DL (20-135)
[2024-12-02] MEDS: INSULIN LISPRO 100 UNIT/ML INSULN.PEN MULTI-DOSE SQ SCH (18:20)
[2024-12-02 18:22] LABS: URINE AMPHETAMINE SCREEN NEGATIVE (Neg); URINE BARBITUATE SCREEN NEGATIVE (Neg); URINE BENZODIAZEPINES SCREEN NEGATIVE (Neg); URINE CANNABINOID SCREEN NEGATIVE (Neg); URINE COCAINE SCREEN NEGATIVE (Neg); URINE METHADONE SCREEN NEGATIVE (Neg); URINE OPIATE SCREEN NEGATIVE (Neg); URINE PHENCYCLIDINE SCREEN NEGATIVE (Neg)
[2024-12-02] MEDS ORDERED: sodium phosphate inj. 30 MMOL in dextrose 5%-water 250 ML IV PRN (18:40)
[2024-12-02] MEDS ORDERED: potassium Cl 40MEQ/270ML bag 270 ML IV PRN (18:40)
[2024-12-02 18:55] LABS: ABG BASE EXCESS -29.2 mmol/L (-2.0-3.0); ABG HCO3 2.1 mmol/L (21.0-28.0); ABG OXYGEN SATURATION 98.2 % (94.0-98.0); ABG PCO2 (T) 10.5 mmHg (32.0-45.0); ABG PH (T) 6.916 (7.350-7.450); ABG PO2 (T) 124.1 mmHg (83.0-108.0); FCOHb 0.3 % (0.5-1.5); FHHb 1.8 % (0.0-5.0); FLOW 0 L/min; FMetHb 0.3 % (0.0-1.5); FO2Hb 97.6 % (94.0-98.0); MODE ROOM AIR; PATIENT TEMPERATURE 36.5; TOTAL HEMOGLOBIN 14.1 G/dl (12.0-16.0)
[2024-12-02] MEDS: Insulin Reg/NS 100units/100mL 100 ML IV SCH (19:37)
[2024-12-02] MEDS: potassium Cl 40MEQ/1/2NS 520ml 520 ML IV PRN (19:57)
[2024-12-02] MEDS: lactobacillus rhamnosus 10,000 MMU CELLS/CAPSULE PO SCH (20:35)
[2024-12-02] MEDS: heparin, porcine 5000 units/ml vial SQ SCH (20:45)
[2024-12-02] MEDS: dextrose 5%-1/2 normal saline 1,000 ML IV SCH (20:46)
[2024-12-02] MEDS ORDERED: insulin glargine (Lantus) pen - multi-dose SQ SCH (21:00)
[2024-12-02 21:59] LABS: ALBUMIN 3.4 G/DL (3.4-5.0); ALBUMIN/GLOBULIN RATIO 0.9 (1.1-1.5); ALKALINE PHOSPHATASE 165 IU/L (46-116); ASPARTATE AMINO TRANSFERASE 18 U/L (10-37); BILIRUBIN,TOTAL 0.4 MG/DL (0.1-1.0); BLOOD UREA NITROGEN 8 MG/DL (7-18); CALCIUM 8.3 MG/DL (8.5-10.1); CHLORIDE 109 MMOL/L (99-107); CREATININE 1.14 MG/DL (0.40-0.90); GLUCOSE 306 MG/DL (70-104); PHOSPHORUS 2.9 MG/DL (2.3-4.5); POTASSIUM 3.9 MMOL/L (3.5-5.1); SODIUM 139 MMOL/L (135-145); eCRCL 87 ML/MIN; eGFR 57 ML/MIN
[2024-12-02 22:05] LABS: ALANINE AMINOTRANSFERASE 26 U/L (12-78); ANION GAP 25 (8-16)
[2024-12-03] VITALS (11 sets, daily range): BP systolic 124–139; BP diastolic 71–87; PULSE 115–134; RESP 25–41; TEMP 97.3–98; O2SAT 92–100
[2024-12-03] MEDS: HYDROmorphone/PF 0.2 MG/ML SYRINGE IV PRN (01:08)
[2024-12-03 02:52] LABS: ALBUMIN 3.4 G/DL (3.4-5.0); ALBUMIN/GLOBULIN RATIO 0.9 (1.1-1.5); ALKALINE PHOSPHATASE 155 IU/L (46-116); ANION GAP 24 (8-16); ASPARTATE AMINO TRANSFERASE 19 U/L (10-37); BILIRUBIN,TOTAL 0.4 MG/DL (0.1-1.0); BLOOD UREA NITROGEN 6 MG/DL (7-18); CALCIUM 9.1 MG/DL (8.5-10.1); CHLORIDE 110 MMOL/L (99-107); GLUCOSE 128 MG/DL (70-104); MAGNESIUM 1.8 MG/DL (1.5-2.4); PHOSPHORUS 1.5 MG/DL (2.3-4.5); POTASSIUM 3.3 MMOL/L (3.5-5.1); SODIUM 139 MMOL/L (135-145); TOTAL PROTEIN 7.2 G/DL (6.4-8.2); eCRCL 83 ML/MIN; eGFR 53 ML/MIN
[2024-12-03] MEDS: potassium Cl 40MEQ/1/2NS 520ml 520 ML IV PRN (03:56)
[2024-12-03 04:09] LABS: LIPASE > 375 U/L (16-77)
[2024-12-03] MEDS: Dextrose 10%-water IV solution 1,000 ML IV SCH (04:18)
[2024-12-03 05:23] LABS: ALANINE AMINOTRANSFERASE 24 U/L (12-78)
[2024-12-03 05:25] LABS: BASOPHILS # (AUTO) 0.2 X10'3 (0-0.2); BASOPHILS % (AUTO) 0.7 % (0-1); EOSINOPHILS % (AUTO) 0 % (0-6); HEMATOCRIT 42.5 % (35.0-45.0); HEMOGLOBIN 14.6 g/dl (12.0-16.0); LYMPHOCYTES % (AUTO) 7.7 % (21-51); MEAN CORPUSCULAR HEMOGLOBIN 28.8 PG (27.0-31.0); MEAN CORPUSCULAR HGB CONC 34.3 g/dL (33.0-36.5); MEAN CORPUSCULAR VOLUME 84.2 FL (78-98); MEAN PLATELET VOLUME 7.5 FL (7.4-10.4); MONOCYTES # (AUTO) 0.7 X10'3 (0-0.9); MONOCYTES % (AUTO) 2.8 % (2-12); NEUTROPHILS # (AUTO) 22.8 X10'3 (1.8-7.7); NEUTROPHILS % (AUTO) 88.8 % (42-75); PLATELET COUNT 323 X10'3 (140-440); RED BLOOD COUNT 5.05 X10'6 (4.20-5.60); RED CELL DISTRIBUTION WIDTH 14.2 % (11.5-14.5)
[2024-12-03 05:53] LABS: WHITE BLOOD COUNT 25.7 X10'3 (4.5-11.0)
[2024-12-03] MEDS: Insulin Reg/NS 100units/100mL 100 ML IV ONE (06:54)
[2024-12-03 08:29] LABS: ALBUMIN/GLOBULIN RATIO 0.9 (1.1-1.5); ALKALINE PHOSPHATASE 144 IU/L (46-116); BILIRUBIN,TOTAL 0.6 MG/DL (0.1-1.0); BLOOD UREA NITROGEN 6 MG/DL (7-18); BUN/CREATININE RATIO 5.2 (10.0-20.0); CALCIUM 9.6 MG/DL (8.5-10.1); CHLORIDE 110 MMOL/L (99-107); CREATININE 1.16 MG/DL (0.40-0.90); GLUCOSE 226 MG/DL (70-104); SODIUM 134 MMOL/L (135-145); TOTAL PROTEIN 6.5 G/DL (6.4-8.2); eCRCL 86 ML/MIN; eGFR 56 ML/MIN
[2024-12-03 08:41] LABS: ALANINE AMINOTRANSFERASE 22 U/L (12-78); ASPARTATE AMINO TRANSFERASE 55 U/L (10-37); MAGNESIUM 1.7 MG/DL (1.5-2.4); PHOSPHORUS 1.6 MG/DL (2.3-4.5)
[2024-12-03 08:49] LABS: POTASSIUM 4.3 MMOL/L (3.5-5.1)
[2024-12-03] MEDS: sodium bicarbonate (8.4%) inj. 50 MEQ in sodium chloride 0.45% 1,000 ML IV SCH (10:19)
[2024-12-03] MEDS: sodium phosphate inj. 15 MMOL in dextrose 5%-water 250 ML IV PRN (10:20)
[2024-12-03 11:13] LABS: ALANINE AMINOTRANSFERASE 23 U/L (12-78); ALBUMIN 3.1 G/DL (3.4-5.0); ALBUMIN/GLOBULIN RATIO 0.8 (1.1-1.5); ALKALINE PHOSPHATASE 150 IU/L (46-116); ANION GAP 23 (8-16); BILIRUBIN,TOTAL 0.5 MG/DL (0.1-1.0); BLOOD UREA NITROGEN 7 MG/DL (7-18); BUN/CREATININE RATIO 4.5 (10.0-20.0); CALCIUM 10.3 MG/DL (8.5-10.1); CHLORIDE 105 MMOL/L (99-107); CREATININE 1.55 MG/DL (0.40-0.90); GLUCOSE 365 MG/DL (70-104); MAGNESIUM 1.7 MG/DL (1.5-2.4); SODIUM 134 MMOL/L (135-145); eCRCL 64 ML/MIN; eGFR 40 ML/MIN
[2024-12-03 11:33] LABS: ASPARTATE AMINO TRANSFERASE 20 U/L (10-37)
[2024-12-03 11:41] LABS: POTASSIUM 3.8 MMOL/L (3.5-5.1)
[2024-12-03 12:15] LABS: ABG BASE EXCESS -22.2 mmol/L (-2.0-3.0); ABG OXYGEN SATURATION 99.5 % (94.0-98.0); ABG PCO2 (T) 11.8 mmHg (32.0-45.0); ABG PO2 (T) 146.1 mmHg (83.0-108.0); ALLEN'S TEST POSITIVE; FCOHb 0.9 % (0.5-1.5); FHHb 0.5 % (0.0-5.0); FMetHb 0.3 % (0.0-1.5); FO2Hb 98.3 % (94.0-98.0); PATIENT TEMPERATURE 37.2; TOTAL HEMOGLOBIN 13.7 G/dl (12.0-16.0)
--- NOTE | 2024-12-03 13:28 | CONSULTATION REPORT ---
Consult Providers to CC ~ History of Present Illness Reason for Admit\Complaint: Abdominal pain History of Present Illness This is a 29-year-old transgender woman not on hormone replacement therapy at this time, admitted for worsening abdominal pain over several days with some nausea and no reported vomiting chest pain shortness of breath or palpitations, a triglyceride level of 7269, and elevated total cholesterol as well in the setting of type 1 diabetes is poorly controlled as evidenced by hemoglobin A1c of 10, there is also alcohol use tobacco use, marijuana use on a regular basis, we have been asked to evaluate KORI, and electrolyte abnormalities. Allergies: Coded Allergies: pantoprazole (Verified Allergy, Intermediate, 12/02/24) pineapple (Verified Allergy, Unknown, 12/02/24) Home Medications Home Medications Active Ondansetron HCl 8 Mg Tablet 1 Tab PO Q8H 10 Days Famotidine 20 Mg Tablet 1 Tab PO Q12H 30 Days Ciprofloxacin HCl 250 Mg Tablet 1 Tab PO Q12H 5 Days Atorvastatin Calcium 20 Mg Tablet 40 Mg PO DAILY 30 Days Fenofibrate (Fenofibrate Nanocrystallized) 48 Mg Tablet 48 Mg PO DAILY@0830 30 Days Humalog (Insulin Lispro) 100 Unit/Ml Insuln.pen 0 Unit SQ ACHS 30 Days SLIDING SCALE, MEALTIME INSULIN LESS THAN 150: 0 UNITS 150-199: 2 UNITS 200-249: 4 UNITS 250-299: 7 UNITS 300-349: 10 UNITS 350-400: 13 UNITS GREATER THAN 400: CALL MD Oneillus* (Insulin Glargine) 100 Unit/1 Ml Vial 20 Units SUBCUT BID 30 Days Reported Descovy 200-25 mg Tablet (Emtricitabine/Tenofov Alafenam) 200 Mg-25 Mg Tablet 1 Tab PO DAILY Insulin Lispro Kwikpen U-100 (Insulin Lispro) 100 Unit/Ml Insuln.pen SQ Fluoxetine Hcl 40 Mg Capsule 1 Cap PO DAILY Depo-Estradiol (Estradiol Cypionate) 5 Mg/1 Ml Vial 0.2 Ml IM Q7D Tylenol (Acetaminophen) 325 Mg Tablet 650 Mg PO Q6H PRN PAIN 10 Days Tylenol (Acetaminophen) 325 Mg Tablet 1 Tab PO QDAY PRN PRN 30 Days Atomoxetine HCl 40 Mg Capsule 1 Cap PO QAM 30 Days Fluoxetine Hcl (Fluoxetine HCl) 40 Mg Capsule 1 Cap PO DAILY 30 Days Past Medical History Past Medical History Reviewed Past Surgical History Surgical History Comment Reviewed Family History Family History: FH: ADHD (attention deficit hyperactivity disorder) MOTHER, Name: Leisa Jung, Born 02/07/71, , Not a twin, Race: / FH: PR (myocardial infarction) FATHER, Name: Harmeet Mahan, Born 12/20/76, Age: 47, Not a twin, Race: OTHER RACE FH: asthma MOTHER, Name: Leisa Jung, Born 02/07/71, , Not a twin, Race: / FH: diabetes mellitus FATHER, Name: Harmeet Mahan, Born 12/20/76, Age: 47, Not a twin, Race: OTHER RACE Past Social History Social History Comment Alcohol, smoking tobacco, drug use reports current use Health Maintenance Health Maintenance Reviewed ROS ROS See HPI, all other systems reported as normal Exam Vitals: Vital Signs Date Time Temp Pulse Resp B/P (MAP) Pulse Ox O2 Delivery O2 Flow Rate FiO2 12/03/24 10:03 42 12/03/24 06:30 137 12/03/24 06:29 100 Room Air 0.0 12/03/24 04:08 98.0 135/87 (103) General: Ill appearing, well nourished, in distress from pain Neck: Supple, without JVD Heart: Regular rate and rhythm, no murmur Lungs: Clear to auscultation and percussion Abdomen: Bowel sounds decreased, diffuse tenderness, organomegaly, masses, or hernia, ostomy clean and dry Extremities: No cyanosis, no edema, peripheral pulses intact Neurologic: Sensation to touch, normal. DTRs normal moves all extremities spontaneously. Diagnostic Data Last Recorded Lab Results: 12/03/24 0230 12/03/24 0945 Diagnostic Data: I & O 12/03/24 07:00 Intake Total 4350 ml Balance 4350 ml Intake IV Total 4350 ml Problems: (1) KORI (acute kidney injury) Assessment & Plan: This patient has acute kidney injury (KORI) with a creatinine of 1.55 mg/dL, no prior history of chronic kidney disease (CKD), recent IV contrast exposure for CT, and concurrent acute pancreatitis. The KORI is likely multifactorial, resulting from both contrast-induced nephropathy and the systemic effects of acute pancreatitis, including hypovolemia, inflammation, and vascular dysfunction. The absence of CKD history does not eliminate risk for contrast-induced KORI, and acute pancreatitis further increases susceptibility to renal injury through inflammatory and the previously mentioned hemodynamic mechanisms. Plan: 1. Supportive Care: Aggressive IV fluid resuscitation with isotonic saline to restore intravascular volume and optimize renal perfusion, especially given the risk of third spacing in pancreatitis. Monitor fluid balance closely to avoid both prolonged hypovolemia and fluid overload. Discontinue or adjust nephrotoxic medications for current eGFR. 2. Minimize Further Nephrotoxic Insults: Avoid additional iodinated contrast unless absolutely necessary. Monitor electrolytes, renal function, and urine output daily. 3. Pancreatitis Management: Treat underlying pancreatitis with bowel rest, pain control, and nutritional support as indicated. Monitor for complications such as infection, abdominal compartment syndrome, or worsening KORI. 4. Nutritional and Metabolic Support: Restrict sodium (2 Gm) and potassium intake unless there are deficiencies or ongoing losses, then replacement will be necessary. Provide adequate protein (about 0.8 g/kg/day). Monitor and correct electrolyte abnormalities, prefer IV calcium, phosphate in this particular case. 5. Ongoing Monitoring: Daily assessment of renal function, electrolytes, and clinical volume status. (2) Hypertriglyceridemia Assessment & Plan: The patient presents with severe hypertriglyceridemia, which is a significant risk factor for acute pancreatitis, as evidenced by her current admission. The etiology of hypertriglyceridemia can be multifactorial, including likely dietary factors, lifestyle choices (such as alcohol and marijuana use), genetic predispositions, and underlying medical conditions like diabetes mellitus type 1 (DM1) and renal or liver disease. In this case, the patient's history of DM1 with a high Hemoglobin A1c (HbA1c) of 10, current alcohol and marijuana use, and UTI may contribute to her condition. Differential Diagnosis should consider other causes of abdominal pain and pancreatitis, such as gallstones, biliary obstruction, and other pancreatic disorders. Given her history of colon cancer and colectomy with ileostomy, it is also important to rule out any complications related to these conditions, a CT with contrast was performed 2 day ago which should suffice for now. Treatment for severe hypertriglyceridemia involves therapeutic lifestyle changes (diet and exercise) and medications. For triglyceride levels above 500 mg/dL, I recommend both fibrates and omega-3 fatty acids to reduce the risk of pancreatitis. In patients like this with high cardiovascular risk and elevated LDL-C, statins should be considered, Rosuvastatin high intensity dose would be recommended. Complications of severe hypertriglyceridemia include acute pancreatitis, which can be life-threatening, and an increased risk of cardiovascular disease due to associated dyslipidemia. Management of the patient's DM1 and addressing lifestyle factors are critical to prevent further complications. (3) Uncontrolled diabetes mellitus Status: Acute Assessment & Plan: For this patient with uncontrolled type 1 diabetes mellitus (DM1), acute kidney injury (KORI), and acute pancreatitis, my recommended insulin regimen is a basal-bolus approach using both long-acting (basal) and rapid- acting (prandial) insulin. This strategy is essential for achieving glycemic control quickly while minimizing the risk of hypoglycemia and hyperglycemia, both of which can worsen her KORI and complicate your pancreatitis management. Medication Regimen Recommendations at discharge: Basal Insulin: Insulin glargine or detemir: Dose: Start with 0.20.3 units/kg/day, adjusted to target fasting blood glucose of 782887 mg/dL in the acute care setting Administration: Once daily, at the same time each day. Rationale: Provides background insulin coverage to control fasting and between- meal glucose levels. Fast-Acting (Prandial) Insulin: Insulin lispro, aspart, or glulisine: Dose: Start with a single pre-meal injection, before meals associated with the highest postprandial glucose reductions. Administration: Give 15 minutes before meals, controls postprandial glucose spikes. Stepwise Addition: When eating if postprandial glucose remains above 180 mg/dL after the first meal, add a second pre-meal injection before the next largest meal. Continue until all meals are covered as needed. If Necessary Dose Adjustment: Total Daily Insulin: For her uncontrolled DM1, total daily insulin requirements may range from 0.3 to 0.5 units/kg/day, divided as 50% basal and 50% prandial, but may be higher in some patients with insulin resistance or severe hyperglycemia as seen here. Carbohydrate Ratio: Use a carbohydrate ratio of 1 unit per 1015 grams of carbohydrate to adjust prandial insulin doses. Correction Factor: Cautiously use a correction factor consider 1 unit per 2550 mg/dL above target to correct for hyperglycemia between meals. Monitoring and Safety: Blood Glucose Monitoring: Frequent blood glucose monitoring (at least before meals and at bedtime) is essential to guide insulin dosing and prevent hypoglycemia. Renal Function: Adjust insulin doses as needed for KORI, as insulin clearance may be reduced. Electrolytes: Monitor potassium closely, as insulin therapy can lower serum potassium. (4) Acute pancreatitis Status: Acute Assessment & Plan: This patient is experiencing acute pancreatitis, which can cause rather severe abdominal pain, nausea, vomiting, it is often associated with other conditions such as gallstones, alcohol use, or certain medications, but in this case, it is most likely multifactorial with contributions from patient's uncontrolled triglycerides, diabetes type 1, alcohol and maihuana use, poor diet and acute kidney injury. Modification and treatment of each of these etiologies and risk factors is critical to her recovery and prevention of severe complications. Plan: Pain Management: Mild to moderate pain recommend stepwise plan that starts with acetaminophen, if necessary, opioids, may be necessary to manage severe abdominal pain. With KORI I woud not recommend morphine or it's derivatives, hydromorphone or oxycodone if no allergy is present rui be acceptable. Nutritional Support: Initially, continue fasting to allow the pancreas to rest. Once symptoms improve, a gradual reintroduction of a low-fat diet should be initiated. If the patient cannot eat, nutritional support through IV fluids or a feeding tube may be necessary. Hydration and Electrolyte Balance: The patient should receive IV fluids recommend 0.9% NaCl initially to maintain hydration and correct any electrolyte imbalances, which are crucial for pancreatic recovery and support kidney function. Monitoring and Supportive Care: Regular monitoring of vital signs, blood glucose levels, and pancreatic enzyme levels daily to assess her progress. Monitor for any signs of complications, such as infection or other organ stress or failure. Patient Education: She should be educated on lifestyle changes and dietary modifications to prevent future episodes of pancreatitis, including managing diabetes effectively and avoiding alcohol.Recommend dietary consult, as well social media marketer to identify barriers to successful treatment. ADOLFO DIAZ III DO Dec 03, 2024 13:28
[2024-12-03] MEDS: Insulin Reg/NS 100units/100mL 100 ML IV SCH (14:08)
[2024-12-03 14:19] LABS: ALANINE AMINOTRANSFERASE 23 U/L (12-78); ALBUMIN 2.9 G/DL (3.4-5.0); ALBUMIN/GLOBULIN RATIO 0.7 (1.1-1.5); ALKALINE PHOSPHATASE 140 IU/L (46-116); ANION GAP 21 (8-16); BILIRUBIN,TOTAL 0.5 MG/DL (0.1-1.0); BLOOD UREA NITROGEN 8 MG/DL (7-18); BUN/CREATININE RATIO 4.4 (10.0-20.0); CALCIUM 10.6 MG/DL (8.5-10.1); CHLORIDE 107 MMOL/L (99-107); CREATININE 1.82 MG/DL (0.40-0.90); GLUCOSE 262 MG/DL (70-104); MAGNESIUM 1.6 MG/DL (1.5-2.4); SODIUM 135 MMOL/L (135-145); TOTAL PROTEIN 6.8 G/DL (6.4-8.2); eCRCL 55 ML/MIN; eGFR 33 ML/MIN
[2024-12-03 14:21] LABS: ASPARTATE AMINO TRANSFERASE 30 U/L (10-37); PHOSPHORUS 1.9 MG/DL (2.3-4.5); POTASSIUM 3.3 MMOL/L (3.5-5.1)
[2024-12-03] MEDS: magnesium sulf-water 2g/50mL 50 ML IV PRN (15:06)
[2024-12-03 17:33] LABS: ALANINE AMINOTRANSFERASE 20 U/L (12-78); ALBUMIN 2.7 G/DL (3.4-5.0); ALBUMIN/GLOBULIN RATIO 0.7 (1.1-1.5); ALKALINE PHOSPHATASE 131 IU/L (46-116); ANION GAP 19 (8-16); BILIRUBIN,TOTAL 0.5 MG/DL (0.1-1.0); BLOOD UREA NITROGEN 9 MG/DL (7-18); BUN/CREATININE RATIO 4.3 (10.0-20.0); CALCIUM 10.4 MG/DL (8.5-10.1); CHLORIDE 107 MMOL/L (99-107); CREATININE 2.08 MG/DL (0.40-0.90); GLUCOSE 140 MG/DL (70-104); MAGNESIUM 2.1 MG/DL (1.5-2.4); SODIUM 134 MMOL/L (135-145); TOTAL PROTEIN 6.5 G/DL (6.4-8.2); eCRCL 48 ML/MIN; eGFR 28 ML/MIN
[2024-12-03 17:35] LABS: ASPARTATE AMINO TRANSFERASE 32 U/L (10-37)
[2024-12-03 17:36] LABS: POTASSIUM 2.8 MMOL/L (3.5-5.1)
[2024-12-03] MEDS: sodium bicarbonate (8.4%) inj. 50 MEQ in dextrose 5%-water 1,000 ML IV SCH (17:55)
--- NOTE | 2024-12-03 17:55 | PROGRESS NOTE ---
Daily Progress Note Providers to CC ~ Antibiotic Timeout Antibiotic Ordered?: Yes Subjective Patient was seen in presence of patient's friend, nursing staff and Resident today. Patient appears [age] and as per nursing staff she is trying up. Her friend answered most of the questions. Nephrology consult requested from Dr. Le and his consult greatly appreciated. WE WILL FOLLOW THE RECOMMENDATIONS SUGGESTED BY NEPHROLOGY SPECIALIST Objective Vital Signs Date Time Temp Pulse Resp B/P (MAP) Pulse Ox O2 Delivery O2 Flow Rate FiO2 12/03/24 11:00 97.4 129 29 139/84 (102) 99 Room Air 12/03/24 06:29 0.0 Result Diagram: 12/03/24 0230 12/03/24 1652 General-patient not in any acute distress, awake , ill-appearing, age- appropriate HEENT-atraumatic normocephalic, neck supple without elevated JVD, no thyromegaly or carotid bruit. No lymphadenopathy bilaterally. Eyes-no icterus or pallor seen in eyes Chest-clear to auscultation bilaterally, breathing nonlabored no tachypnea, no wheezing, no crepitation, no crackles. Heart-S1-S2 normal, regular heart rate no murmur Abdomen bowel sounds positive on auscultation, soft nondistended , signs of tenderness present over upper abdomen bilaterally, no guarding, no rigidity, colostomy bag present over right lower abdomen Skin no active skin rash Neurology-grossly intact, nonfocal alert awake oriented Extremity- no pedal edema able to move all 4 extremities Psychiatry - patient is not confused or agitated cooperated during physical examination Problem\Assessment\Plan Assessment and plan: 29-year-old female patient came to the hospital with abdominal pain. Abdominal pain: Acute pancreatitis: Possible alcoholic pancreatitis: The patient came to the hospital with chief complaint of abdominal pain localized at the level of the epigastrium. Lipase levels 285. CT scan of the abdomen: Mild acute pancreatitis. No CT evidence pancreatic parenchymal necrosis. Correlate with appropriate lab testing. Postoperative changes of bilateral breast implants, near total colectomy pouch, and right lower quadrant ileostomy. No evidence of bowel obstruction or other acute process in the abdomen or pelvis. NPO. Normal saline with soda bicarbonate one ampule at 200 mL/hour Pain control with Dilaudid. Sepsis secondary to Urinary tract infection/cystitis: Sepsis criteria: (WBC: 12.1, HR>90, RR>20, presence of source of infection): Urinalysis positive for urinary tract infection. Follow-up urine and blood culture. Ceftriaxone 1 g IV daily. Culturelle [address] mmu b.i.d. Type 1 diabetes mellitus: Glucose levels strict 155: Last hemoglobin A1c on May,: 10.0 Follow-up hemoglobin A1c. Hyperglycemia/hypoglycemia protocol in place. Insulin glargine 18 units HS, medium dose short-acting insulin sliding scale. Lipid level reviews elevated lipid panel we will plan to start patient on statins Code status: Full code DVT prophylaxis: SCDs Analgesia/sedation: norco Line/tube: PIV GI prophylaxis: None Nutrition: NPO PT: No Patient's current condition is guarded we will continue to follow patient in a.m.. Date of Service: Dec 03, 2024 Billing Provider: ALTAF CARLSON MD Common Visit Codes: [id number] INP/OBS CARE(HIGH) ALTAF CARLSON MD Dec 03, 2024 17:55
[2024-12-03] MEDS ORDERED: HYDROcodone/acetaminophen 10/325mg tab PO PRN (18:00)
[2024-12-03] MEDS ORDERED: HYDROcodone/acetaminophen 5mg/325mg tablet PO PRN (18:05)
[2024-12-03] MEDS: HYDROmorphone inj. 0.5 MG/0.5 ML DISP.SYRIN IV PRN (20:30)
[2024-12-03] MEDS: potassium Cl 20 mEq SR tablet PO PRN (20:43)
[2024-12-03 21:23] LABS: BASOPHILS % (AUTO) 0.2 % (0-1); EOSINOPHILS % (AUTO) 0.1 % (0-6); HEMATOCRIT 37.6 % (35.0-45.0); HEMOGLOBIN 13.2 g/dl (12.0-16.0); LYMPHOCYTES # (AUTO) 0.3 X10'3 (1.1-4.8); LYMPHOCYTES % (AUTO) 2.4 % (21-51); MEAN CORPUSCULAR HEMOGLOBIN 29.6 PG (27.0-31.0); MEAN CORPUSCULAR VOLUME 84.5 FL (78-98); MEAN PLATELET VOLUME 7.5 FL (7.4-10.4); MONOCYTES # (AUTO) 0.5 X10'3 (0-0.9); MONOCYTES % (AUTO) 3.1 % (2-12); NEUTROPHILS # (AUTO) 13.8 X10'3 (1.8-7.7); NEUTROPHILS % (AUTO) 94.2 % (42-75); PLATELET COUNT 207 X10'3 (140-440); RED BLOOD COUNT 4.45 X10'6 (4.20-5.60); RED CELL DISTRIBUTION WIDTH 14.5 % (11.5-14.5); WHITE BLOOD COUNT 14.7 X10'3 (4.5-11.0)
[2024-12-03 22:12] LABS: ALANINE AMINOTRANSFERASE 23 U/L (12-78); ALBUMIN 2.7 G/DL (3.4-5.0); ALBUMIN/GLOBULIN RATIO 0.7 (1.1-1.5); ALKALINE PHOSPHATASE 136 IU/L (46-116); BILIRUBIN,TOTAL 0.5 MG/DL (0.1-1.0); BLOOD UREA NITROGEN 11 MG/DL (7-18); BUN/CREATININE RATIO 4.3 (10.0-20.0); CALCIUM 10.3 MG/DL (8.5-10.1); CHLORIDE 104 MMOL/L (99-107); CREATININE 2.56 MG/DL (0.40-0.90); SODIUM 133 MMOL/L (135-145); TOTAL PROTEIN 6.6 G/DL (6.4-8.2); eCRCL 39 ML/MIN; eGFR 22 ML/MIN
[2024-12-03 22:14] LABS: ANION GAP 24 (8-16); ASPARTATE AMINO TRANSFERASE 34 U/L (10-37); GLUCOSE 332 MG/DL (70-104); PHOSPHORUS 3.5 MG/DL (2.3-4.5); POTASSIUM 3.8 MMOL/L (3.5-5.1)
[2024-12-03 23:06] LABS: ABG BASE EXCESS -20.4 mmol/L (-2.0-3.0); ABG HCO3 5.3 mmol/L (21.0-28.0); ABG OXYGEN SATURATION 97.7 % (94.0-98.0); ABG PCO2 (T) 13.8 mmHg (32.0-45.0); ABG PH (T) 7.199 (7.350-7.450); ABG PO2 (T) 88.5 mmHg (83.0-108.0); ALLEN'S TEST POSITIVE; FCOHb 0.7 % (0.5-1.5); FHHb 2.3 % (0.0-5.0); FMetHb 0.2 % (0.0-1.5); FO2Hb 96.8 % (94.0-98.0); MODE ROOM AIR; TOTAL HEMOGLOBIN 12.4 G/dl (12.0-16.0)
[2024-12-04] VITALS (7 sets, daily range): BP systolic 125–155; BP diastolic 80–88; PULSE 108–137; RESP 16–34; TEMP 97.3–99.2; O2SAT 97–100
[2024-12-04] MEDS: potassium Cl 20 mEq SR tablet PO PRN (01:10)
[2024-12-04 02:25] LABS: ANION GAP 23 (8-16); BLOOD UREA NITROGEN 16 MG/DL (7-18); BUN/CREATININE RATIO 5.2 (10.0-20.0); CALCIUM 10.6 MG/DL (8.5-10.1); CHLORIDE 102 MMOL/L (99-107); CREATININE 3.05 MG/DL (0.40-0.90); GLUCOSE 367 MG/DL (70-104); SODIUM 131 MMOL/L (135-145); eCRCL 33 ML/MIN; eGFR 18 ML/MIN
[2024-12-04 02:26] LABS: ALBUMIN 2.6 G/DL (3.4-5.0); ALBUMIN/GLOBULIN RATIO 0.7 (1.1-1.5); ALKALINE PHOSPHATASE 127 IU/L (46-116); BILIRUBIN,TOTAL 0.6 MG/DL (0.1-1.0); LIPASE 218 U/L (16-77); MAGNESIUM 1.9 MG/DL (1.5-2.4); TOTAL PROTEIN 6.3 G/DL (6.4-8.2)
[2024-12-04 02:27] LABS: ALANINE AMINOTRANSFERASE 20 U/L (12-78); ASPARTATE AMINO TRANSFERASE 46 U/L (10-37); PHOSPHORUS 2.2 MG/DL (2.3-4.5)
[2024-12-04] MEDS: Insulin Reg/NS 100units/100mL 100 ML IV ONE (02:51)
[2024-12-04] MEDS: potassium Cl 40MEQ/1/2NS 520ml 520 ML IV ONE (03:07)
[2024-12-04 06:43] LABS: BASOPHILS % (AUTO) 0.3 % (0-1); EOSINOPHILS % (AUTO) 0 % (0-6); HEMATOCRIT 33.2 % (35.0-45.0); HEMOGLOBIN 11.8 g/dl (12.0-16.0); LYMPHOCYTES # (AUTO) 0.5 X10'3 (1.1-4.8); LYMPHOCYTES % (AUTO) 4.3 % (21-51); MEAN CORPUSCULAR HEMOGLOBIN 29.9 PG (27.0-31.0); MEAN CORPUSCULAR HGB CONC 35.5 g/dL (33.0-36.5); MEAN CORPUSCULAR VOLUME 84.4 FL (78-98); MONOCYTES # (AUTO) 0.5 X10'3 (0-0.9); MONOCYTES % (AUTO) 4.7 % (2-12); NEUTROPHILS # (AUTO) 10.4 X10'3 (1.8-7.7); NEUTROPHILS % (AUTO) 90.7 % (42-75); PLATELET COUNT 176 X10'3 (140-440); RED BLOOD COUNT 3.94 X10'6 (4.20-5.60); RED CELL DISTRIBUTION WIDTH 15.1 % (11.5-14.5); WHITE BLOOD COUNT 11.5 X10'3 (4.5-11.0)
--- NOTE | 2024-12-04 07:23 | PROGRESS NOTE ---
Progress Note Dictate Providers to CC ~ Progress Note: This is a 29-year-old transgender woman not on hormone replacement therapy at this time, admitted for worsening abdominal pain over several days with some nausea and no reported vomiting chest pain shortness of breath or palpitations, a triglyceride level of 7269, and elevated total cholesterol as well in the setting of type 1 diabetes is poorly controlled as evidenced by hemoglobin A1c of 10, there is also alcohol use tobacco use, marijuana use on a regular basis, we have been asked to evaluate KORI, and electrolyte abnormalities. Antibiotic Ordered?: N/A Objective Vitals Vital Signs Date Time Temp Pulse Resp B/P (MAP) Pulse Ox O2 Delivery O2 Flow Rate FiO2 12/04/24 08:00 33 99 Room Air 12/04/24 06:00 118 12/04/24 02:00 98.1 125/80 (95) 12/03/24 06:29 0.0 Lab Results: 12/04/24 0601 12/04/24 0914 Other Results I & O 12/04/24 07:00 Intake Total 2607 ml Balance 2607 ml Intake Oral 440 ml IV Total 2167 ml # Voids 4 Problem\Assessment\Plan Problems/Diagnosis: (1) KORI (acute kidney injury) Assessment & Plan: This patient has acute kidney injury (KORI) with a creatinine of 3.3 mg/dL at admission, now 3.64, no prior history of chronic kidney disease (CKD), recent IV contrast exposure for CT, and concurrent acute pancreatitis. The KORI is likely multifactorial, resulting from both contrast-induced nephropathy and the systemic effects of acute pancreatitis, including hypovolemia, inflammation, and vascular dysfunction. The absence of CKD history does not eliminate risk for contrast-induced KORI, and acute pancreatitis further increases susceptibility to renal injury through inflammatory and the previously mentioned hemodynamic mechanisms. Plan: 1. Supportive Care: Aggressive IV fluid resuscitation with isotonic saline to restore intravascular volume and optimize renal perfusion, especially given the risk of third spacing in pancreatitis. Monitor fluid balance closely to avoid both prolonged hypovolemia and fluid overload. Discontinue or adjust nephrotoxic medications for current eGFR. 2. Minimize Further Nephrotoxic Insults: Avoid additional iodinated contrast unless absolutely necessary. Monitor electrolytes, renal function, and urine output daily. 3. Pancreatitis Management: Treat underlying pancreatitis with bowel rest, pain control, and nutritional support as indicated. Monitor for complications such as infection, abdominal compartment syndrome, or worsening KORI. 4. Nutritional and Metabolic Support: Restrict sodium (2 Gm) and potassium intake unless there are deficiencies or ongoing losses, then replacement will be necessary. Provide adequate protein (about 0.8 g/kg/day). 5. Urine electrolytes, creatinine, urea, osmolality, serum uric acid, osmolality daily Monitor and correct electrolyte abnormalities, prefer IV calcium, phosphate in this particular case. 5. Ongoing Monitoring: Daily assessment of renal function, electrolytes, and clinical volume status. (2) Hypertriglyceridemia Assessment & Plan: The patient presents with severe hypertriglyceridemia, which is a significant risk factor for acute pancreatitis, as evidenced by her current admission. The etiology of hypertriglyceridemia can be multifactorial, including likely dietary factors, lifestyle choices (such as alcohol and marijuana use), genetic predispositions, and underlying medical conditions like diabetes mellitus type 1 (DM1) and renal or liver disease. In this case, the patient's history of DM1 with a high Hemoglobin A1c (HbA1c) of 10, current alcohol and marijuana use, and UTI may contribute to her condition. Differential Diagnosis should consider other causes of abdominal pain and pancreatitis, such as gallstones, biliary obstruction, and other pancreatic disorders. Given her history of colon cancer and colectomy with ileostomy, it is also important to rule out any complications related to these conditions, a CT with contrast was performed 2 day ago which should suffice for now. Treatment for severe hypertriglyceridemia involves therapeutic lifestyle changes (diet and exercise) and medications. For triglyceride levels above 500 mg/dL, I recommend both fibrates and omega-3 fatty acids to reduce the risk of pancreatitis. In patients like this with high cardiovascular risk and elevated LDL-C, statins should be considered, Rosuvastatin high intensity dose would be recommended. Complications of severe hypertriglyceridemia include acute pancreatitis, which can be life-threatening, and an increased risk of cardiovascular disease due to associated dyslipidemia. Management of the patient's DM1 and addressing lifestyle factors are critical to prevent further complications. (3) Uncontrolled diabetes mellitus Assessment & Plan: For this patient with uncontrolled type 1 diabetes mellitus (DM1), acute kidney injury (KORI), and acute pancreatitis, my recommended insulin regimen is a basal-bolus approach using both long-acting (basal) and rapid- acting (prandial) insulin. This strategy is essential for achieving glycemic control quickly while minimizing the risk of hypoglycemia and hyperglycemia, both of which can worsen her KORI and complicate your pancreatitis management. Medication Regimen Recommendations at discharge: Basal Insulin: Insulin glargine or detemir: Dose: Start with 0.20.3 units/kg/day, adjusted to target fasting blood glucose of 433532 mg/dL in the acute care setting Administration: Once daily, at the same time each day. Rationale: Provides background insulin coverage to control fasting and between- meal glucose levels. Fast-Acting (Prandial) Insulin: Insulin lispro, aspart, or glulisine: Dose: Start with a single pre-meal injection, before meals associated with the highest postprandial glucose reductions. Administration: Give 15 minutes before meals, controls postprandial glucose spikes. Stepwise Addition: When eating if postprandial glucose remains above 180 mg/dL after the first meal, add a second pre-meal injection before the next largest meal. Continue until all meals are covered as needed. If Necessary Dose Adjustment: Total Daily Insulin: For her uncontrolled DM1, total daily insulin requirements may range from 0.3 to 0.5 units/kg/day, divided as 50% basal and 50% prandial, but may be higher in some patients with insulin resistance or severe hyperglycemia as seen here. Carbohydrate Ratio: Use a carbohydrate ratio of 1 unit per 1015 grams of carbohydrate to adjust prandial insulin doses. Correction Factor: Cautiously use a correction factor consider 1 unit per 2550 mg/dL above target to correct for hyperglycemia between meals. Monitoring and Safety: Blood Glucose Monitoring: Frequent blood glucose monitoring (at least before meals and at bedtime) is essential to guide insulin dosing and prevent hypoglycemia. Renal Function: Adjust insulin doses as needed for KORI, as insulin clearance may be reduced. Electrolytes: Monitor potassium closely, as insulin therapy can lower serum potassium. (4) Acute pancreatitis Assessment & Plan: This patient is experiencing acute pancreatitis, which can cause rather severe abdominal pain, nausea, vomiting, it is often associated with other conditions such as gallstones, alcohol use, or certain medications, but in this case, it is most likely multifactorial with contributions from patient's uncontrolled triglycerides, diabetes type 1, alcohol and maihuana use, poor diet and acute kidney injury. Modification and treatment of each of these etiologies and risk factors is critical to her recovery and prevention of severe complications. Plan: Pain Management: Mild to moderate pain recommend stepwise plan that starts with acetaminophen, if necessary, opioids, may be necessary to manage severe abdominal pain. With KORI I woud not recommend morphine or it's derivatives, hydromorphone or oxycodone if no allergy is present rui be acceptable. Nutritional Support: Initially, continue fasting to allow the pancreas to rest. Once symptoms improve, a gradual reintroduction of a low-fat diet should be initiated. If the patient cannot eat, nutritional support through IV fluids or a feeding tube may be necessary. Hydration and Electrolyte Balance: The patient should receive IV fluids recommend 0.9% NaCl initially to maintain hydration and correct any electrolyte imbalances, which are crucial for pancreatic recovery and support kidney function. Monitoring and Supportive Care: Regular monitoring of vital signs, blood glucose levels, and pancreatic enzyme levels daily to assess her progress. Monitor for any signs of complications, such as infection or other organ stress or failure. Patient Education: She should be educated on lifestyle changes and dietary modifications to prevent future episodes of pancreatitis, including managing diabetes effectively and avoiding alcohol.Recommend dietary consult, as well director social welfare to identify barriers to successful treatment. Additional Plan I would recommend IV fluids with normal saline at a rate sufficient enough to maintain urine output of about 100 mL/h, as I understand it D5W with bicarbonate is running right now, worsening hyponatremia would be seen over the next 24 hours if this continues, I recommend stopping D5W, and either starting 0.9% normal saline at a sufficient rate to maintain urine output as discussed above, I would expect improvement in renal function with volume resuscitation improvemen, improved glycemic management is crucial over the next 24 hours to improve metabolic acidosis, I have reviewed ABG for this morning, profound acidosis, most likely driven by hyperglycemia and acute kidney injury. I would recommend evaluation for ICU transfer for closer monitoring, management of severe hyperglycemia and acidemia ADOLFO DIAZ III DO Dec 04, 2024 07:23
[2024-12-04] MEDS ORDERED: potassium CL 10mEq/100ml bag 100 ML IV ONE ×2 (07:30→08:30)
[2024-12-04 08:22] LABS: ALANINE AMINOTRANSFERASE 22 U/L (12-78); ALBUMIN 2.4 G/DL (3.4-5.0); ALBUMIN/GLOBULIN RATIO 0.7 (1.1-1.5); ALKALINE PHOSPHATASE 117 IU/L (46-116); BILIRUBIN,TOTAL 0.6 MG/DL (0.1-1.0); BLOOD UREA NITROGEN 18 MG/DL (7-18); BUN/CREATININE RATIO 5.5 (10.0-20.0); CALCIUM 10.5 MG/DL (8.5-10.1); CHLORIDE 102 MMOL/L (99-107); GLUCOSE 375 MG/DL (70-104); SODIUM 132 MMOL/L (135-145); TOTAL PROTEIN 5.9 G/DL (6.4-8.2); eCRCL 30 ML/MIN; eGFR 17 ML/MIN
[2024-12-04 08:39] LABS: ASPARTATE AMINO TRANSFERASE 31 U/L (10-37); PHOSPHORUS 4.2 MG/DL (2.3-4.5)
[2024-12-04 08:52] LABS: ABG OXYGEN SATURATION 99.1 % (94.0-98.0); ABG PH (T) 7.216 (7.350-7.450); ABG PO2 (T) 129.1 mmHg (83.0-108.0); ALLEN'S TEST POSITIVE; FCOHb 0.3 % (0.5-1.5); FHHb 0.9 % (0.0-5.0); FMetHb 0.1 % (0.0-1.5); FO2Hb 98.7 % (94.0-98.0); PATIENT TEMPERATURE 36.7; TOTAL HEMOGLOBIN 10.6 G/dl (12.0-16.0)
[2024-12-04 09:56] LABS: ALANINE AMINOTRANSFERASE 19 U/L (12-78); ALBUMIN 2.5 G/DL (3.4-5.0); ALBUMIN/GLOBULIN RATIO 0.7 (1.1-1.5); ALKALINE PHOSPHATASE 124 IU/L (46-116); ASPARTATE AMINO TRANSFERASE 23 U/L (10-37); BILIRUBIN,TOTAL 0.5 MG/DL (0.1-1.0); BLOOD UREA NITROGEN 20 MG/DL (7-18); BUN/CREATININE RATIO 5.5 (10.0-20.0); CALCIUM 10.2 MG/DL (8.5-10.1); CHLORIDE 98 MMOL/L (99-107); CREATININE 3.64 MG/DL (0.40-0.90); PHOSPHORUS 4.5 MG/DL (2.3-4.5); SODIUM 129 MMOL/L (135-145); TOTAL PROTEIN 6.2 G/DL (6.4-8.2); eCRCL 27 ML/MIN; eGFR 15 ML/MIN
[2024-12-04 09:57] LABS: POTASSIUM 3.8 MMOL/L (3.5-5.1)
[2024-12-04 10:00] LABS: GLUCOSE 577 MG/DL (70-104)
[2024-12-04] MEDS: sodium bicarbonate 1meq/ml inj 150 ML in sodium chloride 0.45% 1,000 ML IV SCH (12:05)
[2024-12-04] MEDS: ringers solution, lacted 1,000 ML IV ONE ×3 (12:20→15:41)
[2024-12-04 13:24] LABS: C DIFF ANTIGEN NEGATIVE (NEGATIVE); C DIFF SPECIMEN=DIARRHEA? ACCEPTABLE; C DIFFICILE TOXINS A&B NEGATIVE (Neg)
[2024-12-04 13:45] LABS: ALANINE AMINOTRANSFERASE 19 U/L (12-78); ALBUMIN 2.4 G/DL (3.4-5.0); ALBUMIN/GLOBULIN RATIO 0.6 (1.1-1.5); ALKALINE PHOSPHATASE 120 IU/L (46-116); ANION GAP 22 (8-16); ASPARTATE AMINO TRANSFERASE 18 U/L (10-37); BILIRUBIN,TOTAL 0.5 MG/DL (0.1-1.0); BLOOD UREA NITROGEN 25 MG/DL (7-18); BUN/CREATININE RATIO 6.3 (10.0-20.0); CALCIUM 10.7 MG/DL (8.5-10.1); CHLORIDE 103 MMOL/L (99-107); CREATININE 3.94 MG/DL (0.40-0.90); GLUCOSE 380 MG/DL (70-104); MAGNESIUM 2.1 MG/DL (1.5-2.4); PHOSPHORUS 2.6 MG/DL (2.3-4.5); SODIUM 134 MMOL/L (135-145); TOTAL PROTEIN 6.1 G/DL (6.4-8.2); eCRCL 25 ML/MIN; eGFR 14 ML/MIN
[2024-12-04 13:49] LABS: TOTAL CARBON DIOXIDE 8.9 MMOL/L (24-32)
[2024-12-04] MEDS: potassium CL 10mEq/100ml bag 100 ML IV ONE ×2 (15:15→15:47)
[2024-12-04 18:05] LABS: ALANINE AMINOTRANSFERASE 16 U/L (12-78); ALBUMIN 2.2 G/DL (3.4-5.0); ALBUMIN/GLOBULIN RATIO 0.7 (1.1-1.5); ALKALINE PHOSPHATASE 109 IU/L (46-116); ANION GAP 27 (8-16); ASPARTATE AMINO TRANSFERASE 18 U/L (10-37); BILIRUBIN,TOTAL 0.7 MG/DL (0.1-1.0); BLOOD UREA NITROGEN 23 MG/DL (7-18); CALCIUM 10.3 MG/DL (8.5-10.1); CHLORIDE 102 MMOL/L (99-107); CREATININE 3.84 MG/DL (0.40-0.90); GLUCOSE 382 MG/DL (70-104); MAGNESIUM 1.7 MG/DL (1.5-2.4); PHOSPHORUS 4.1 MG/DL (2.3-4.5); SODIUM 135 MMOL/L (135-145); TOTAL PROTEIN 5.5 G/DL (6.4-8.2); eCRCL 26 ML/MIN; eGFR 14 ML/MIN
[2024-12-04 18:12] LABS: POTASSIUM 3.5 MMOL/L (3.5-5.1)
[2024-12-04 18:24] LABS: BILIRUBIN,URINE NEGATIVE (Neg); CLARITY,URINE CLEAR (Clear); COLOR,URINE YELLOW (Yellow); GLUCOSE, URINE >=1000 mg/dl (Neg); KETONES,URINE >=80 mg/dl (Neg); LEUKOCYTE ESTERASE ,URINE TRACE (Neg); NITRITES, URINE NEGATIVE (Neg); OCCULT BLOOD,URINE TRACE-INTACT (Neg); PROTEIN,URINE NEGATIVE (Neg); UROBILINOGEN,URINE 0.2 E.U/dL (0.2-1.0)
[2024-12-04 18:26] LABS: UA COLLECTION TYPE NON-SPECIFIED
[2024-12-04 18:41] LABS: RBC,URINE 0-2 /HPF (0-2)
[2024-12-04 18:42] LABS: BACTERIA,URINE NONE SEEN /HPF (Neg); SQUAMOUS EPITHELIAL CELL,UR FEW /LPF (FEW)
--- NOTE | 2024-12-04 18:43 | PROGRESS NOTE ---
Daily Progress Note Providers to CC ~ Antibiotic Timeout Antibiotic Ordered?: Yes Subjective Patient is seen in PCU not communicated much today. Dr. Le following the patient and requested ICU transfer for the patient. I discussed this with Dr. Dwyer he is willing to follow the patient along with the hospitalist team in PCU for now. Patient's critical labs reviewed. We will follow the recommendation from the leak gang supervisor Dr Dwyer and Dr. Le Objective Vital Signs Date Time Temp Pulse Resp B/P (MAP) Pulse Ox O2 Delivery O2 Flow Rate FiO2 12/04/24 11:00 97.3 116 34 138/88 (105) 97 Room Air 12/03/24 06:29 0.0 Result Diagram: 12/04/24 0601 12/04/24 1653 General-patient not in any acute distress, awake but lethargic appearing , ill- appearing, age-appropriate HEENT-atraumatic normocephalic, neck supple without elevated JVD, no thyromegaly or carotid bruit. No lymphadenopathy bilaterally. Eyes-no icterus or pallor seen in eyes Chest-clear to auscultation bilaterally, breathing nonlabored no tachypnea, no wheezing, no crepitation, no crackles. Heart-S1-S2 normal, regular heart rate no murmur Abdomen bowel sounds positive on auscultation, soft nondistended , signs of tenderness present over upper abdomen bilaterally, no guarding, no rigidity, colostomy bag present over right lower abdomen Skin no active skin rash Neurology-grossly intact, nonfocal , awake but lethargic appearing Extremity- no pedal edema able to move all 4 extremities Psychiatry - patient is not confused or agitated partially cooperated during physical examination Problem\Assessment\Plan Assessment and plan: 29-year-old female patient came to the hospital with abdominal pain. Abdominal pain: Acute pancreatitis: Possible alcoholic pancreatitis: The patient came to the hospital with chief complaint of abdominal pain localized at the level of the epigastrium. Lipase levels 285. CT scan of the abdomen: Mild acute pancreatitis. No CT evidence pancreatic parenchymal necrosis. Correlate with appropriate lab testing. Postoperative changes of bilateral breast implants, near total colectomy pouch, and right lower quadrant ileostomy. No evidence of bowel obstruction or other acute process in the abdomen or pelvis. clear liquid diet Half Normal saline with soda bicarbonate 3 ampule at 100 mL/hour Pain control with Dilaudid. Sepsis secondary to Urinary tract infection/cystitis: Sepsis criteria: (WBC: 12.1, HR>90, RR>20, presence of source of infection): Urinalysis positive for urinary tract infection. Follow-up urine and blood culture. Ceftriaxone 1 g IV daily. Culturelle 420[address] mmu b.i.d. Type 1 diabetes mellitus: Glucose levels strict 155: Last hemoglobin A1c on May,: 10.0 Follow-up hemoglobin A1c. Hyperglycemia/hypoglycemia protocol in place. Insulin glargine 18 units HS, medium dose short-acting insulin sliding scale. Acute renal failure-Dr. Le is following the patient and appreciate his consult note which I reviewed and we will follow the recommendations Lipid level reviews elevated lipid panel we will plan to start patient on statins Code status: Full code DVT prophylaxis: SCDs Analgesia/sedation: norco Line/tube: PIV GI prophylaxis: None Nutrition: NPO PT: No Patient's current condition is guarded we will continue to follow patient in a.m.. Further management as recommended by the leak gang supervisor Dr Dwyer and Dr. Le Date of Service: Dec 04, 2024 Billing Provider: ALTAF CARLSON MD Common Visit Codes: [id number] CARE 30-74 MIN ALTAF CARLSON MD Dec 04, 2024 18:43
[2024-12-04 18:44] LABS: WBC,URINE 0-4 /HPF (0-4)
[2024-12-04 19:12] LABS: CREATININE,URINE RANDOM 16.7 MG/DL; TOTAL PROTEIN,URINE RANDOM 34.5 MG/DL
[2024-12-04 19:30] LABS: UA EOSINOPHILS NO EOS /HPF
[2024-12-04 23:02] LABS: ABG BASE EXCESS -17.8 mmol/L (-2.0-3.0); ABG HCO3 5.7 mmol/L (21.0-28.0); ABG OXYGEN SATURATION 98.8 % (94.0-98.0); ABG PCO2 (T) 11.2 mmHg (32.0-45.0); ABG PH (T) 7.322 (7.350-7.450); ABG PO2 (T) 125.7 mmHg (83.0-108.0); ALLEN'S TEST Modified; FCOHb 0.6 % (0.5-1.5); FHHb 1.2 % (0.0-5.0); FMetHb 0.3 % (0.0-1.5); FO2Hb 97.9 % (94.0-98.0); MODE ROOM AIR; TOTAL HEMOGLOBIN 10.7 G/dl (12.0-16.0)
[2024-12-04 23:29] LABS: ALANINE AMINOTRANSFERASE 20 U/L (12-78); ALBUMIN 2.2 G/DL (3.4-5.0); ALBUMIN/GLOBULIN RATIO 0.6 (1.1-1.5); ALKALINE PHOSPHATASE 116 IU/L (46-116); BILIRUBIN,TOTAL 0.7 MG/DL (0.1-1.0); BLOOD UREA NITROGEN 31 MG/DL (7-18); BUN/CREATININE RATIO 6.9 (10.0-20.0); CALCIUM 10.1 MG/DL (8.5-10.1); CHLORIDE 100 MMOL/L (99-107); MAGNESIUM 1.9 MG/DL (1.5-2.4); SODIUM 131 MMOL/L (135-145); eCRCL 22 ML/MIN; eGFR 12 ML/MIN
[2024-12-04 23:31] LABS: ANION GAP 26 (8-16); ASPARTATE AMINO TRANSFERASE 37 U/L (10-37); PHOSPHORUS 2.4 MG/DL (2.3-4.5); POTASSIUM 4.2 MMOL/L (3.5-5.1)
[2024-12-04 23:35] LABS: GLUCOSE 526 MG/DL (70-104)
[2024-12-05] VITALS (8 sets, daily range): BP systolic 107–128; BP diastolic 53–89; PULSE 101–124; RESP 12–20; TEMP 97.4–99.4; O2SAT 96–100
[2024-12-05 03:05] LABS: ALANINE AMINOTRANSFERASE 19 U/L (12-78); ALBUMIN 2.2 G/DL (3.4-5.0); ALBUMIN/GLOBULIN RATIO 0.6 (1.1-1.5); ALKALINE PHOSPHATASE 109 IU/L (46-116); ANION GAP 19 (8-16); ASPARTATE AMINO TRANSFERASE 19 U/L (10-37); BILIRUBIN,TOTAL 0.6 MG/DL (0.1-1.0); BLOOD UREA NITROGEN 32 MG/DL (7-18); CALCIUM 10.2 MG/DL (8.5-10.1); CHLORIDE 105 MMOL/L (99-107); CREATININE 4.57 MG/DL (0.40-0.90); GLUCOSE 313 MG/DL (70-104); LIPASE 61 U/L (16-77); MAGNESIUM 1.9 MG/DL (1.5-2.4); PHOSPHORUS 1.9 MG/DL (2.3-4.5); SODIUM 135 MMOL/L (135-145); TOTAL PROTEIN 5.7 G/DL (6.4-8.2); eCRCL 22 ML/MIN; eGFR 11 ML/MIN
[2024-12-05 03:08] LABS: POTASSIUM 2.7 MMOL/L (3.5-5.1)
[2024-12-05 03:09] LABS: TOTAL CARBON DIOXIDE 11.4 MMOL/L (24-32)
[2024-12-05] MEDS: dextrose 5%-1/2 normal saline 1,000 ML IV SCH (04:50)
[2024-12-05 04:53] LABS: ABG BASE EXCESS -9.1 mmol/L (-2.0-3.0); ABG OXYGEN SATURATION 98.1 % (94.0-98.0); ABG PCO2 (T) 22.8 mmHg (32.0-45.0); ABG PH (T) 7.408 (7.350-7.450); ABG PO2 (T) 101.1 mmHg (83.0-108.0); ALLEN'S TEST POSITIVE; FCOHb 0.3 % (0.5-1.5); FHHb 1.9 % (0.0-5.0); FO2Hb 97.8 % (94.0-98.0); MODE ROOM AIR; PATIENT TEMPERATURE 37.1; TOTAL HEMOGLOBIN 10.1 G/dl (12.0-16.0)
[2024-12-05 06:50] LABS: ABG PCO2 (T) < 10.0 mmHg (32.0-45.0)
[2024-12-05 06:52] LABS: BASOPHILS % (AUTO) 0.5 % (0-1); EOSINOPHILS % (AUTO) 0.2 % (0-6); LYMPHOCYTES # (AUTO) 0.7 X10'3 (1.1-4.8); LYMPHOCYTES % (AUTO) 8.1 % (21-51); MEAN PLATELET VOLUME 7.6 FL (7.4-10.4); MONOCYTES # (AUTO) 0.3 X10'3 (0-0.9); MONOCYTES % (AUTO) 3.4 % (2-12); NEUTROPHILS # (AUTO) 8.1 X10'3 (1.8-7.7); NEUTROPHILS % (AUTO) 87.8 % (42-75); PLATELET COUNT 200 X10'3 (140-440); RED BLOOD COUNT 3.25 X10'6 (4.20-5.60); RED CELL DISTRIBUTION WIDTH 14.8 % (11.5-14.5); WHITE BLOOD COUNT 9.2 X10'3 (4.5-11.0)
[2024-12-05 07:28] LABS: ALANINE AMINOTRANSFERASE 17 U/L (12-78); ALBUMIN/GLOBULIN RATIO 0.6 (1.1-1.5); ALKALINE PHOSPHATASE 94 IU/L (46-116); ANION GAP 13 (8-16); ASPARTATE AMINO TRANSFERASE 16 U/L (10-37); BILIRUBIN,TOTAL 0.5 MG/DL (0.1-1.0); BLOOD UREA NITROGEN 33 MG/DL (7-18); BUN/CREATININE RATIO 7.3 (10.0-20.0); CALCIUM 9.6 MG/DL (8.5-10.1); CHLORIDE 108 MMOL/L (99-107); CREATININE 4.51 MG/DL (0.40-0.90); GLUCOSE 138 MG/DL (70-104); MAGNESIUM 1.8 MG/DL (1.5-2.4); PHOSPHORUS 1.5 MG/DL (2.3-4.5); SODIUM 137 MMOL/L (135-145); TOTAL CARBON DIOXIDE 16.1 MMOL/L (24-32); TOTAL PROTEIN 5.2 G/DL (6.4-8.2); eCRCL 22 ML/MIN; eGFR 12 ML/MIN
[2024-12-05 07:29] LABS: HEMATOCRIT 26.8 % (35.0-45.0); HEMOGLOBIN 9.4 g/dl (12.0-16.0); MEAN CORPUSCULAR HEMOGLOBIN 28.9 PG (27.0-31.0); MEAN CORPUSCULAR VOLUME 82.4 FL (78-98)
[2024-12-05 07:30] LABS: POTASSIUM 2.4 MMOL/L (3.5-5.1)
[2024-12-05] MEDS: insulin glargine (Lantus) VIAL- multi-dose SQ ONE (07:40)
[2024-12-05] MEDS ORDERED: pantoprazole 40 MG vial IV SCH (08:00)
[2024-12-05] MEDS ORDERED: famotidine 10mg tablet PO SCH (08:00)
[2024-12-05] MEDS: ringers solution, lacted 1,000 ML IV ONE ×2 (08:06→09:51)
[2024-12-05 09:36] LABS: ALANINE AMINOTRANSFERASE 15 U/L (12-78); ALBUMIN 1.8 G/DL (3.4-5.0); ALBUMIN/GLOBULIN RATIO 0.6 (1.1-1.5); ALKALINE PHOSPHATASE 86 IU/L (46-116); ANION GAP 13 (8-16); ASPARTATE AMINO TRANSFERASE 20 U/L (10-37); BILIRUBIN,TOTAL 0.5 MG/DL (0.1-1.0); BLOOD UREA NITROGEN 30 MG/DL (7-18); CALCIUM 9.2 MG/DL (8.5-10.1); CHLORIDE 107 MMOL/L (99-107); CREATININE 4.28 MG/DL (0.40-0.90); GLUCOSE 148 MG/DL (70-104); MAGNESIUM 1.7 MG/DL (1.5-2.4); PHOSPHORUS 2.6 MG/DL (2.3-4.5); SODIUM 137 MMOL/L (135-145); TOTAL CARBON DIOXIDE 16.6 MMOL/L (24-32); TOTAL PROTEIN 4.9 G/DL (6.4-8.2); eCRCL 23 ML/MIN; eGFR 12 ML/MIN
[2024-12-05] MEDS: metoclopramide 5 mg/ml inj IV PRN (09:37)
[2024-12-05] MEDS: famotidine 20mg tablet PO ONE (09:37)
[2024-12-05 09:44] LABS: ABG BASE EXCESS -9.3 mmol/L (-2.0-3.0); ABG HCO3 14.3 mmol/L (21.0-28.0); ABG OXYGEN SATURATION 97.5 % (94.0-98.0); ABG PCO2 (T) 24.5 mmHg (32.0-45.0); ABG PH (T) 7.384 (7.350-7.450); ABG PO2 (T) 92.1 mmHg (83.0-108.0); ALLEN'S TEST POSITIVE; FCOHb 0.9 % (0.5-1.5); FHHb 2.5 % (0.0-5.0); FMetHb 0.3 % (0.0-1.5); FO2Hb 96.3 % (94.0-98.0); MODE RA; PATIENT TEMPERATURE 37.4; TOTAL HEMOGLOBIN 9.5 G/dl (12.0-16.0)
[2024-12-05] MEDS: gemfibrozil 600mg tablet PO SCH (09:51)
[2024-12-05 09:54] LABS: POTASSIUM 2.9 MMOL/L (3.5-5.1)
[2024-12-05] MEDS ORDERED: Potassium Cl inj 40 MEQ in dextrose 5%-water 980 ML IV SCH (10:00)
[2024-12-05] MEDS ORDERED: POTASSIUM Cl 20eq-D5W 1000mL 1,000 ML IV SCH (10:40)
[2024-12-05] MEDS ORDERED: Potassium Cl inj 40 MEQ in dextrose 5%-water 1,000 ML IV SCH (11:40)
[2024-12-05] MEDS: loperamide 2mg capsule PO ONE (12:12)
[2024-12-05] MEDS: Neutra Phos packet PO SCH (12:46)
[2024-12-05] MEDS: potassium Cl 20 mEq SR tablet PO PRN (13:00)
[2024-12-05] MEDS ORDERED: dextrose 50%-water 50ml dispensing syringe IV PRN ×2 (13:55)
[2024-12-05] MEDS ORDERED: DEXTROSE 15 GM of carb/4 tabs (each vial/BOTTLE has 4 tablets) PO PRN ×2 (13:55)
[2024-12-05] MEDS ORDERED: glucagon, human recombinant 1mg kit SUBCUT PRN (13:55)
[2024-12-05 13:56] LABS: ALANINE AMINOTRANSFERASE 16 U/L (12-78); ALBUMIN 1.9 G/DL (3.4-5.0); ALBUMIN/GLOBULIN RATIO 0.6 (1.1-1.5); ALKALINE PHOSPHATASE 90 IU/L (46-116); ANION GAP 18 (8-16); ASPARTATE AMINO TRANSFERASE 12 U/L (10-37); BILIRUBIN,TOTAL 0.5 MG/DL (0.1-1.0); BLOOD UREA NITROGEN 33 MG/DL (7-18); BUN/CREATININE RATIO 7.7 (10.0-20.0); CALCIUM 9.2 MG/DL (8.5-10.1); CHLORIDE 105 MMOL/L (99-107); CHOL/HDL RATIO 10.4 (0.00-4.99); CHOLESTEROL 228 MG/DL (0-200); CREATININE 4.29 MG/DL (0.40-0.90); GLUCOSE 355 MG/DL (70-104); HDL CHOLESTEROL 22 MG/DL (35-60); LDL CHOLESTEROL 82 MG/DL (50-100); MAGNESIUM 1.7 MG/DL (1.5-2.4); PHOSPHORUS 3.8 MG/DL (2.3-4.5); POTASSIUM 3.1 MMOL/L (3.5-5.1); SODIUM 136 MMOL/L (135-145); TOTAL PROTEIN 5.1 G/DL (6.4-8.2); TRIGLYCERIDES 403 MG/DL (20-135); eCRCL 23 ML/MIN; eGFR 12 ML/MIN
[2024-12-05 13:58] LABS: TOTAL CARBON DIOXIDE 13.2 MMOL/L (24-32)
[2024-12-05] MEDS: sodium bicarbonate 1meq/ml inj 150 ML in dextrose 5%-water 1,000 ML IV SCH (14:20)
--- NOTE | 2024-12-05 14:21 | PROGRESS NOTE- Residence ---
Progress Note - Resident Providers to CC Resident Creating Document: EPHRAIM FLOREZ RES ~ Antibiotic Timeout Antibiotic Ordered?: No Subjective Patient was seen and examined at the bedside. She appeared lethargic. Reports improved abdominal pain. Objective Vital Signs Date Time Temp Pulse Resp B/P (MAP) Pulse Ox O2 Delivery O2 Flow Rate FiO2 12/05/24 10:05 16 12/05/24 08:00 99 Room Air 12/05/24 06:00 98 12/05/24 06:00 99.4 115/72 (86) 12/03/24 06:29 0.0 Result Diagram: 12/05/24 0541 12/05/24 0907 General-patient not in any acute distress, awake but lethargic appearing , ill- appearing, age-appropriate HEENT-atraumatic normocephalic, neck supple without elevated JVD, no thyromegaly or carotid bruit. No lymphadenopathy bilaterally. Eyes-no icterus or pallor seen in eyes Chest-clear to auscultation bilaterally, breathing nonlabored no tachypnea, no wheezing, no crepitation, no crackles. Heart-S1-S2 normal, regular heart rate no murmur Abdomen bowel sounds positive on auscultation, soft nondistended , signs of tenderness present over upper abdomen bilaterally, no guarding, no rigidity, colostomy bag present over right lower abdomen Skin no active skin rash Neurology-grossly intact, nonfocal , awake but lethargic appearing Extremity- no pedal edema able to move all 4 extremities Psychiatry - patient is not confused or agitated partially cooperated during physical examination HEART Score The issue is whether hyperglycemia causes hyperlipidemia which causes pancreatitis, or occult alcohol use causes pancreatitis causing hyperlipidemia and [id number] DM. Watch out for re-inducing opiate addiction c/ past history. Pancreas on CT and dropping hct suggest aggressive pancreatitis with risk of saponification (Ca ok so far) and MOFS. f/u Ca i, aggressive DM Rx, she'll need close to 300 mEq KCl to raise K by 1 starting with acidosis. I suggest repeat lipid panel and serum osm to see where we are on true Na level. Plan Plan This is a 29-year-old female with history of type 1 diabetes mellitus, colon cancer s/p colostomy, transitional hormone replacement therapy which was stopped in July 2023 came to the ER with a chief complaint of abdominal pain. She was admitted for management of pancreatitis. Her triglycerides levels at the time of admission were 7269. The nephrology team was consulted for KORI and electrolyte abnormalities. Plan KORI likely prerenal Cause is Multifactorial-hypovolemia, pancreatitis leading to vascular dysfunction, inflammation, contrast. Management- -aggressive fluid resuscitation with D5W with three ampules of sodium bicarb or half NS with two ampules of sodium bicarb. -pancreatitis management -avoid contrast or any other nephrotoxin agents. -urine electrolytes daily -Neutra-Phos t.i.d. -careful monitor of sodium is also necessary as hypertriglyceridemia can cause pseudohyponatremia, therefore underestimating the serum sodium levels. Hypokalemia Potassium this morning 2.9 Potassium replacement protocol Hypertriglyceridemia This could be secondary from uncontrolled type 1 diabetes mellitus, DKA or hormone replacement therapy. Alcohol can also cause hypertriglyceridemia but the patient denies any alcohol intake. Denied any family history of lipid abnormalities. Triglycerides at the time of admission 7269, with total cholesterol 643, LDL 69. Repeat lipid panel ordered, triglycerides improved to 403. -dietary fat restriction, total diet fat< 5%, consult fusion operator. -fibrates(gemfibrozil 600 mg b.i.d.), omega-3 fatty acids, high-dose statins are recommended. -IV insulin is also recommended, patient did receive IV insulin infusion for about 48 hours. (heparin not recommended due to the transient nature of hypertriglyceridemia.) Pancreatitis Pancreatitis could be secondary to hypertriglyceridemia, type 1 diabetes mellitus -Calcium is in the normal range -patient is afebrile but tachycardic -leukocytosis improving -patient does have signs of worsening organ dysfunction, modified Francisco scoring for organ dysfunction-3 -significant drop in hemoglobin 17.9 to 9.4 even considering dilutional anemia, look out for hemorrhagic/necrotizing pancreatitis. -continue IV fluid resuscitation D5W with three ampules of sodium bicarb or half NS with two ampules of sodium bicarb -tried to avoid narcotics as much as possible. Uncontrolled type 1 diabetes mellitus -insulin protocol Ephraim Florez M.D Nephrology resident, PGY1 Date of Service: Dec 05, 2024 Billing Provider: TRINO MELO MD, PRAVAHIKA, RES Dec 05, 2024 14:21 TRINO MELO MD Dec 05, 2024 18:23
[2024-12-05] MEDS: INSULIN LISPRO 100 UNIT/ML INSULN.PEN MULTI-DOSE SQ SCH (15:05)
[2024-12-05 15:33] LABS: ABG BASE EXCESS -9.2 mmol/L (-2.0-3.0); ABG HCO3 14.4 mmol/L (21.0-28.0); ABG OXYGEN SATURATION 95.7 % (94.0-98.0); ABG PCO2 (T) 23.8 mmHg (32.0-45.0); ABG PH (T) 7.397 (7.350-7.450); ABG PO2 (T) 72.2 mmHg (83.0-108.0); ALLEN'S TEST POSITIVE; FCOHb 0.4 % (0.5-1.5); FHHb 4.3 % (0.0-5.0); FLOW 0 L/min; FMetHb 0.1 % (0.0-1.5); FO2Hb 95.2 % (94.0-98.0); MODE RA; PATIENT TEMPERATURE 36.5; TOTAL HEMOGLOBIN 9.9 G/dl (12.0-16.0)
--- NOTE | 2024-12-05 16:03 | PROGRESS NOTE- Residence ---
Progress Note - Resident Providers to CC Resident Creating Document: WILD KENLEONARD, RES ~ Antibiotic Timeout Antibiotic Ordered?: Yes MRSA Education MRSA Education Provided to pt: Yes Subjective The patient has been evaluated at bedside. The patient reports improvement of abdominal pain. Currently stating that her pain is 5/10 in intensity localized at the level of the epigastrium without radiation. Objective Vital Signs Date Time Temp Pulse Resp B/P (MAP) Pulse Ox O2 Delivery O2 Flow Rate FiO2 12/05/24 10:05 16 12/05/24 08:00 99 Room Air 12/05/24 06:00 98 12/05/24 06:00 99.4 115/72 (86) 12/03/24 06:29 0.0 Physical exam: General: Somnolent, well oriented, not confused, not agitated, not in acute distress, well cooperated during the physical. HEENT: Conjunctive are pink, sclerae clear, no icterus, pupil is equal in both sides, reactive to light, no ear discharge, no pharyngeal erythema or an edema. Neck: Supple, no JVD, no lymphadenopathy and thyromegaly. Chest: Equal air entry on both lungs, no additional sounds no rhonchi no wheezing at the moment. Cardiovascular: S1-S2 regular sinus rhythm and, regular rate, no gallops, no rubs, no murmurs Abdomen: No visible peristalsis, Bowel sounds present on auscultation, tenderness at the level of the epigastrium, presence of colostomy bag at the level of the right abdomen. Presence of formed stool in the colostomy bag. Extremities: No obvious deformities, no pitting edema bilaterally, capillary refill intact, peripheral pulsations are intact on both sides Central Nervous System: No focal neurological deficits, no motor or sensory weakness in all 4 extremities, could move all 4 extremities, 2+ deep tendon reflexes, negative Babinski. Musculoskeletal: No joint swelling, deformities, inflammations, and no scoliosis and back tenderness Skin: Warm and dry. Result Diagram: 12/05/24 0541 12/05/24 1317 Assessment Assessment 29-year-old female patient came to the hospital with abdominal pain. Plan Plan Abdominal pain: Acute pancreatitis secondary to hypertriglyceridemia: Hypertriglyceridemia: The patient came to the hospital with chief complaint of abdominal pain localized at the level of the epigastrium. Lipase levels 285. CT scan of the abdomen: Mild acute pancreatitis. No CT evidence pancreatic parenchymal necrosis. Correlate with appropriate lab testing. Postoperative changes of bilateral breast implants, near total colectomy pouch, and right lower quadrant ileostomy. No evidence of bowel obstruction or other acute process in the abdomen or pelvis. Pain control with Aydlett and Dilaudid. Currently on bicarb drip with D5 and three ampules of bicarb at 100 mL/hour. Triglyceride levels on 12/02/2024: 7269. The patient experienced a similar episode in November 23, 2024 were sales supervisor (Dr. Adalberto Son) and cook pressure (Dr. Jaimes) were consulted was recommended to continue treatment for diabetic ketoacidosis. The patient was started on DKA protocol with insulin drip during admission. Current Triglycerides levels on 12/05/2024: 403. Continue home febrile 600 mg b.i.d. Diabetic ketoacidosis: POA: Type 1 diabetes mellitus: Anion gap metabolic acidosis: Last hemoglobin A1c on May,: 10.0. The patient was started on DKA protocol. We are starting hyperglycemia/hypoglycemia protocol on 12/05/2024. Insulin glargine 9 mg b.i.d. High dose short-acting insulin sliding scale. Sepsis secondary to Urinary tract infection/cystitis: Sepsis criteria: (WBC: 12.1, HR>90, RR>20, presence of source of infection): Urinalysis positive for urinary tract infection. Urine culture showing mixed isabell isolated. Blood culture no growth after three days. Ceftriaxone 1 g IV daily. day 4. To be stopped tomorrow. Culturelle 85007 mmu b.i.d. 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 Fractional excretion of sodium 13.0%, fractional excretion of urea 66.2%: Indicating intrinsic kidney injury. Currently on D5W with three ampules of bicarb at 100 mL/hour. Nephrology is following the case. Code status: Full code DVT prophylaxis: SCDs Analgesia/sedation: Aydlett and Dilaudid Line/tube: PIV GI prophylaxis: Famotidine 10 mg b.i.d. Nutrition: Clear liquid diet PT: No Prognosis: Guarded Disposition: We will continue medical management. Leonard Ken Internal Medicine Resident [facility] Date of Service: Dec 05, 2024 Billing Provider: ALTAF CARLSON MD Common Visit Codes: [id number] INP/OBS CARE(HIGH) LEONARD AWAN, RES Dec 05, 2024 16:02 ALTAF CARLSON MD Dec 05, 2024 17:38
[2024-12-05] MEDS ORDERED: INSULIN LISPRO 100 UNIT/ML INSULN.PEN MULTI-DOSE SQ SCH ×2 (17:00)
[2024-12-05 17:20] LABS: ALANINE AMINOTRANSFERASE 13 U/L (12-78); ALBUMIN/GLOBULIN RATIO 0.6 (1.1-1.5); ALKALINE PHOSPHATASE 95 IU/L (46-116); ANION GAP 15 (8-16); ASPARTATE AMINO TRANSFERASE 15 U/L (10-37); BILIRUBIN,TOTAL 0.5 MG/DL (0.1-1.0); BLOOD UREA NITROGEN 35 MG/DL (7-18); BUN/CREATININE RATIO 7.7 (10.0-20.0); CALCIUM 9.2 MG/DL (8.5-10.1); CHLORIDE 102 MMOL/L (99-107); CREATININE 4.55 MG/DL (0.40-0.90); MAGNESIUM 1.7 MG/DL (1.5-2.4); PHOSPHORUS 2.9 MG/DL (2.3-4.5); SODIUM 134 MMOL/L (135-145); TOTAL CARBON DIOXIDE 16.8 MMOL/L (24-32); TOTAL PROTEIN 5.4 G/DL (6.4-8.2); eCRCL 22 ML/MIN; eGFR 11 ML/MIN
[2024-12-05 17:44] LABS: GLUCOSE 406 MG/DL (70-104); POTASSIUM 2.9 MMOL/L (3.5-5.1)
[2024-12-05] MEDS: famotidine 20mg tablet PO SCH (19:39)
[2024-12-05] MEDS: sodium bicarbonate 1meq/ml inj 150 ML in sodium chloride 0.45% 1,000 ML IV SCH (20:33)
[2024-12-05] MEDS: insulin glargine (Lantus) pen - multi-dose SQ SCH (20:39)
[2024-12-05 20:58] LABS: ABG BASE EXCESS -5.1 mmol/L (-2.0-3.0); ABG HCO3 18.2 mmol/L (21.0-28.0); ABG OXYGEN SATURATION 95.4 % (94.0-98.0); ABG PCO2 (T) 26.1 mmHg (32.0-45.0); ABG PH (T) 7.458 (7.350-7.450); ABG PO2 (T) 69.1 mmHg (83.0-108.0); ALLEN'S TEST Modified; FHHb 4.6 % (0.0-5.0); FMetHb 0.1 % (0.0-1.5); FO2Hb 95.3 % (94.0-98.0); MODE ROOM AIR; PATIENT TEMPERATURE 36.3; TOTAL HEMOGLOBIN 7.8 G/dl (12.0-16.0)
[2024-12-05] MEDS ORDERED: insulin glargine (Lantus) pen - multi-dose SQ SCH (21:00)
[2024-12-05 21:25] LABS: ALANINE AMINOTRANSFERASE 18 U/L (12-78); ALBUMIN/GLOBULIN RATIO 0.6 (1.1-1.5); ALKALINE PHOSPHATASE 95 IU/L (46-116); ANION GAP 12 (8-16); ASPARTATE AMINO TRANSFERASE 11 U/L (10-37); BILIRUBIN,TOTAL 0.5 MG/DL (0.1-1.0); BLOOD UREA NITROGEN 36 MG/DL (7-18); CALCIUM 9.2 MG/DL (8.5-10.1); CHLORIDE 103 MMOL/L (99-107); CHOL/HDL RATIO 10.9 (0.00-4.99); CHOLESTEROL 240 MG/DL (0-200); CREATININE 4.48 MG/DL (0.40-0.90); GLUCOSE 285 MG/DL (70-104); HDL CHOLESTEROL 22 MG/DL (35-60); LDL CHOLESTEROL 96 MG/DL (50-100); MAGNESIUM 1.7 MG/DL (1.5-2.4); PHOSPHORUS 2.5 MG/DL (2.3-4.5); SODIUM 135 MMOL/L (135-145); TOTAL CARBON DIOXIDE 20.4 MMOL/L (24-32); TOTAL PROTEIN 5.4 G/DL (6.4-8.2); TRIGLYCERIDES 523 MG/DL (20-135); eCRCL 22 ML/MIN; eGFR 12 ML/MIN
[2024-12-05 21:28] LABS: POTASSIUM 2.7 MMOL/L (3.5-5.1)
[2024-12-06 03:39] LABS: ABG BASE EXCESS -5.1 mmol/L (-2.0-3.0); ABG HCO3 17.4 mmol/L (21.0-28.0); ABG OXYGEN SATURATION 96.7 % (94.0-98.0); ABG PH (T) 7.476 (7.350-7.450); ABG PO2 (T) 84.5 mmHg (83.0-108.0); ALLEN'S TEST Modified; FCOHb 0.3 % (0.5-1.5); FHHb 3.3 % (0.0-5.0); FMetHb 0.3 % (0.0-1.5); FO2Hb 96.1 % (94.0-98.0); MODE ROOM AIR; PATIENT TEMPERATURE 36.5; TOTAL HEMOGLOBIN 10.2 G/dl (12.0-16.0)
[2024-12-06 03:53] LABS: BASOPHILS % (AUTO) 0.4 % (0-1); EOSINOPHILS # (AUTO) 0.1 X10'3 (0-0.9); EOSINOPHILS % (AUTO) 0.9 % (0-6); HEMATOCRIT 29.5 % (35.0-45.0); HEMOGLOBIN 10.3 g/dl (12.0-16.0); LYMPHOCYTES % (AUTO) 15.6 % (21-51); MEAN CORPUSCULAR HEMOGLOBIN 29.1 PG (27.0-31.0); MEAN CORPUSCULAR VOLUME 83.1 FL (78-98); MEAN PLATELET VOLUME 7.1 FL (7.4-10.4); MONOCYTES # (AUTO) 0.3 X10'3 (0-0.9); MONOCYTES % (AUTO) 4.8 % (2-12); NEUTROPHILS # (AUTO) 4.9 X10'3 (1.8-7.7); NEUTROPHILS % (AUTO) 78.3 % (42-75); PLATELET COUNT 181 X10'3 (140-440); RED BLOOD COUNT 3.55 X10'6 (4.20-5.60); RED CELL DISTRIBUTION WIDTH 15.1 % (11.5-14.5); WHITE BLOOD COUNT 6.2 X10'3 (4.5-11.0)
[2024-12-06 04:08] LABS: ALANINE AMINOTRANSFERASE 18 U/L (12-78); ALBUMIN 2.2 G/DL (3.4-5.0); ALKALINE PHOSPHATASE 102 IU/L (46-116); ANION GAP 9 (8-16); ASPARTATE AMINO TRANSFERASE 16 U/L (10-37); BILIRUBIN,TOTAL 0.6 MG/DL (0.1-1.0); BLOOD UREA NITROGEN 36 MG/DL (7-18); BUN/CREATININE RATIO 7.8 (10.0-20.0); CHLORIDE 103 MMOL/L (99-107); CREATININE 4.61 MG/DL (0.40-0.90); GLUCOSE 323 MG/DL (70-104); LIPASE 47 U/L (16-77); MAGNESIUM 1.7 MG/DL (1.5-2.4); PHOSPHORUS 2.7 MG/DL (2.3-4.5); POTASSIUM 3.2 MMOL/L (3.5-5.1); SODIUM 135 MMOL/L (135-145); TOTAL CARBON DIOXIDE 23.4 MMOL/L (24-32); eCRCL 22 ML/MIN; eGFR 11 ML/MIN
[2024-12-06 04:11] LABS: ALBUMIN/GLOBULIN RATIO 0.6 (1.1-1.5); TOTAL PROTEIN 5.7 G/DL (6.4-8.2)
[2024-12-06 04:24] LABS: CHOL/HDL RATIO 9.8 (0.00-4.99); CHOLESTEROL 246 MG/DL (0-200); HDL CHOLESTEROL 25 MG/DL (35-60); LDL CHOLESTEROL 106 MG/DL (50-100); TRIGLYCERIDES 515 MG/DL (20-135)
[2024-12-06 06:00] VITALS: BP 116/70; PULSE 99; RESP 17; RESP 22; TEMP 98; O2SAT 98
[2024-12-06 08:00] VITALS: RESP 17; O2SAT 98
[2024-12-06] MEDS: INSULIN LISPRO 100 UNIT/ML INSULN.PEN MULTI-DOSE SQ SCH (08:52)
[2024-12-06] MEDS ORDERED: INSULIN LISPRO 100 UNIT/ML INSULN.PEN MULTI-DOSE SQ SCH (12:00)
[2024-12-06 15:00] VITALS: BP 121/83; PULSE 93; RESP 10; TEMP 98.2; O2SAT 100
[2024-12-06] MEDS: ringers solution, lacted 1,000 ML IV SCH (15:34)
[2024-12-06 15:56] LABS: ALANINE AMINOTRANSFERASE 14 U/L (12-78); ALBUMIN/GLOBULIN RATIO 0.7 (1.1-1.5); ALKALINE PHOSPHATASE 90 IU/L (46-116); ANION GAP 10 (8-16); ASPARTATE AMINO TRANSFERASE 20 U/L (10-37); BILIRUBIN,TOTAL 0.5 MG/DL (0.1-1.0); BLOOD UREA NITROGEN 38 MG/DL (7-18); CALCIUM 8.5 MG/DL (8.5-10.1); CHLORIDE 101 MMOL/L (99-107); CREATININE 4.77 MG/DL (0.40-0.90); GLUCOSE 316 MG/DL (70-104); POTASSIUM 3.3 MMOL/L (3.5-5.1); SODIUM 134 MMOL/L (135-145); TOTAL CARBON DIOXIDE 23.5 MMOL/L (24-32); eCRCL 21 ML/MIN; eGFR 11 ML/MIN
--- NOTE | 2024-12-06 17:45 | PROGRESS NOTE- Residence ---
Progress Note - Resident Providers to CC Resident Creating Document: LEONARD AWAN, JOANNE ~ Antibiotic Timeout Antibiotic Ordered?: Yes Subjective The patient has been evaluated at bedside. The patient currently reports abdominal pain 3/10 in intensity the level of the epigastrium. Objective Vital Signs Date Time Temp Pulse Resp B/P (MAP) Pulse Ox O2 Delivery O2 Flow Rate FiO2 12/06/24 13:13 21 12/06/24 08:00 98 Room Air 12/06/24 06:00 96 12/06/24 06:00 98.0 116/70 (85) 12/03/24 06:29 0.0 Physical exam: General: Somnolent, well oriented, not confused, not agitated, not in acute distress, well cooperated during the physical. HEENT: Conjunctive are pink, sclerae clear, no icterus, pupil is equal in both sides, reactive to light, no ear discharge, no pharyngeal erythema or an edema. Neck: Supple, no JVD, no lymphadenopathy and thyromegaly. Chest: Equal air entry on both lungs, no additional sounds no rhonchi no wheezing at the moment. Cardiovascular: S1-S2 regular sinus rhythm and, regular rate, no gallops, no rubs, no murmurs Abdomen: No visible peristalsis, Bowel sounds present on auscultation, tenderness at the level of the epigastrium, presence of colostomy bag at the level of the right abdomen. Presence of formed stool in the colostomy bag. Extremities: No obvious deformities, no pitting edema bilaterally, capillary refill intact, peripheral pulsations are intact on both sides Central Nervous System: No focal neurological deficits, no motor or sensory weakness in all 4 extremities, could move all 4 extremities, 2+ deep tendon reflexes, negative Babinski. Musculoskeletal: No joint swelling, deformities, inflammations, and no scoliosis and back tenderness Skin: Warm and dry. Result Diagram: 12/06/24 0342 12/06/24 1526 Assessment Assessment 29-year-old female patient came to the hospital with abdominal pain. Plan Plan Abdominal pain: Acute pancreatitis secondary to hypertriglyceridemia: Hypertriglyceridemia: The patient came to the hospital with chief complaint of abdominal pain localized at the level of the epigastrium. Lipase levels 285. CT scan of the abdomen: Mild acute pancreatitis. No CT evidence pancreatic parenchymal necrosis. Correlate with appropriate lab testing. Postoperative changes of bilateral breast implants, near total colectomy pouch, and right lower quadrant ileostomy. No evidence of bowel obstruction or other acute process in the abdomen or pelvis. Pain control with [place] and Dilaudid. Currently on bicarb drip with D5 and three ampules of bicarb at 100 mL/hour. Triglyceride levels on 12/02/2024: 7269. The patient experienced a similar episode in November 23, 2024 were wrapping checker (Dr. Adalberto Son) and reel slitter (Dr. Jaimes) were consulted was recommended to continue treatment for diabetic ketoacidosis. The patient was started on DKA protocol with insulin drip during admission. Current Triglycerides levels on 12/05/2024: 403. Continue Gemfibrozil 600 mg b.i.d. 12/06/2024: Triglycerides levels 515. Continue gemfibrozil 600 mg b.i.d.. Diabetic ketoacidosis: POA: Type 1 diabetes mellitus: Anion gap metabolic acidosis: Last hemoglobin A1c on May,: 10.0. The patient was started on DKA protocol. We are starting hyperglycemia/hypoglycemia protocol on 12/05/2024. 12/06/2024: Hyperglycemia/hypoglycemia protocol. Insulin glargine 18 units HS. High dose sliding scale short-acting insulin. Sepsis secondary to Urinary tract infection/cystitis: Sepsis criteria: (WBC: 12.1, HR>90, RR>20, presence of source of infection): Urinalysis positive for urinary tract infection. Urine culture showing mixed isabell isolated. Blood culture no growth after three days. Ceftriaxone 1 g IV daily. day 5. Culturelle 07225 mmu b.i.d. Acute kidney injury likely multifactorial, possible contrast induced nephropathy and the systemic acute pancreatitis: Anion gap metabolic acidosis: Current creatinine 4.29, GFR 12, BUN/creatinine ratio 7.7. Fractional excretion of sodium 13.0%, fractional excretion of urea 66.2%: Indicating intrinsic kidney injury. Currently on D5W with three ampules of bicarb at 100 mL/hour. Nephrology is following the case. 12/06/2024: Stopped bicarb drip after normalization of bicarb levels. Started on lactated ringer at 100 mL/hour fine nephrology recommendation. Code status: Full code DVT prophylaxis: SCDs Analgesia/sedation: [place] and Dilaudid Line/tube: PIV GI prophylaxis: Famotidine 10 mg b.i.d. Nutrition: Clear liquid diet PT: No Prognosis: Guarded Disposition: We will continue medical management. Leonard Nicholson Internal Medicine Resident [facility] Date of Service: Dec 06, 2024 Billing Provider: ALTAF CARLSON MD Common Visit Codes: [id number] INP/OBS CARE(HIGH) LEONARD AWAN, RES Dec 06, 2024 17:45 ALTAF CARLSON MD Dec 06, 2024 18:55
[2024-12-06 18:00] VITALS: BP 131/80; PULSE 99; RESP 13; TEMP 97.6; O2SAT 100
--- NOTE | 2024-12-06 18:19 | PROGRESS NOTE- Residence ---
Progress Note - Resident Providers to CC Resident Creating Document: EPHRAIM FLOREZ RES ~ Antibiotic Timeout Antibiotic Ordered?: Yes Subjective The patient was seen and examined in the bedside today. Reports that the abdominal pain has improved. Objective Vital Signs Date Time Temp Pulse Resp B/P (MAP) Pulse Ox O2 Delivery O2 Flow Rate FiO2 12/06/24 13:13 21 12/06/24 08:00 98 Room Air 12/06/24 06:00 96 12/06/24 06:00 98.0 116/70 (85) 12/03/24 06:29 0.0 Result Diagram: 12/06/24 0342 12/06/24 1526 General-patient not in any acute distress, awake but lethargic appearing , ill- appearing, age-appropriate HEENT-atraumatic normocephalic, neck supple without elevated JVD, no thyromegaly or carotid bruit. No lymphadenopathy bilaterally. Eyes-no icterus or pallor seen in eyes Chest-clear to auscultation bilaterally, breathing nonlabored no tachypnea, no wheezing, no crepitation, no crackles. Heart-S1-S2 normal, regular heart rate no murmur Abdomen bowel sounds positive on auscultation, soft nondistended , signs of tenderness present over upper abdomen bilaterally, no guarding, no rigidity, colostomy bag present over right lower abdomen Skin no active skin rash Neurology-grossly intact, nonfocal , awake but lethargic appearing Extremity- no pedal edema able to move all 4 extremities Psychiatry - patient is not confused or agitated partially cooperated during physical examination Advance Care Planning Advanced Care plannin - 30 Minutes Plan Plan This is a 29-year-old female with history of type 1 diabetes mellitus, colon cancer s/p colostomy, transitional hormone replacement therapy which was stopped in July 2023 came to the ER with a chief complaint of abdominal pain. She was admitted for management of pancreatitis. Her triglycerides levels at the time of admission were 7269. The nephrology team was consulted for KORI and electrolyte abnormalities. Plan KORI likely secondary to ATN Cause is Multifactorial-hypovolemia, pancreatitis leading to vascular dysfunction, inflammation, contrast. Cause of ATN-likely contrast vs hypovolemia Management- -aggressive fluid resuscitation with D5W with three ampules of sodium bicarb or half NS with two ampules of sodium bicarb. -pancreatitis management -avoid contrast or any other nephrotoxin agents. -urine electrolytes daily -Neutra-Phos t.i.d. -careful monitor of sodium is also necessary as hypertriglyceridemia can cause pseudohyponatremia, therefore underestimating the serum sodium levels. 12/06/24 -urine studies urine osm<500, urine sodium> 20, FeNa>1, BUN/creatinine< 20 - fluids changed to LR, as bicarb levels improved and giving further bicarb can cause more hypokalemia Hypokalemia Potassium this morning 2.9 Potassium replacement protocol Hypertriglyceridemia This could be secondary from uncontrolled type 1 diabetes mellitus, DKA or hormone replacement therapy. Alcohol can also cause hypertriglyceridemia but the patient denies any alcohol intake. Denied any family history of lipid abnormalities. Triglycerides at the time of admission 7269, with total cholesterol 643, LDL 69. Repeat lipid panel ordered, triglycerides improved to 403. -dietary fat restriction, total diet fat< 5%, consult airline managerial supervisor. -patient currently on gemfibrozil 200 mg b.i.d. -IV insulin is also recommended, patient did receive IV insulin infusion for about 48 hours. (heparin not recommended due to the transient nature of hypertriglyceridemia.) 12/06/2024-consider stopping gemfibrozil as this can aggravate renal failure and consider PCSK9 inhibitors, Repatha. Pancreatitis Pancreatitis could be secondary to hypertriglyceridemia, type 1 diabetes mellitus -Calcium is in the normal range -patient is afebrile but tachycardic -leukocytosis improving -patient does have signs of worsening organ dysfunction, modified Francisco scoring for organ dysfunction-3 -significant drop in hemoglobin 17.9 to 9.4 even considering dilutional anemia, look out for hemorrhagic/necrotizing pancreatitis. -continue a lower -tried to avoid narcotics as much as possible. 12/06/2024-patient's abdominal pain seems to be improved Uncontrolled type 1 diabetes mellitus -insulin protocol Ephraim Florez M.D Nephrology resident, PGY1 Attending Note: The patient is seen and examined. care plan reviewed. will investigate if we can change the atorvastatin and gemfibrozil to Evolocumab to avoid further renal setbacks. Aly Hodges MD Nephrology Date of Service: Dec 06, 2024 Billing Provider: ALY HODGES MD,EPHRAIM, RES Dec 06, 2024 18:19 ALY HODGES MD Dec 06, 2024 19:54
[2024-12-06 20:00] VITALS: RESP 13; O2SAT 100
[2024-12-06 22:00] VITALS: BP 119/79; PULSE 97; RESP 15; TEMP 97.6; O2SAT 97
[2024-12-07] VITALS (8 sets, daily range): BP systolic 107–125; BP diastolic 64–88; PULSE 86–101; RESP 14–18; TEMP 97.5–97.9; O2SAT 97–100
[2024-12-07 05:20] LABS: BASOPHILS # (AUTO) 0.1 X10'3 (0-0.2); BASOPHILS % (AUTO) 1.4 % (0-1); EOSINOPHILS # (AUTO) 0.1 X10'3 (0-0.9); EOSINOPHILS % (AUTO) 3.5 % (0-6); HEMATOCRIT 30.9 % (35.0-45.0); HEMOGLOBIN 10.5 g/dl (12.0-16.0); LYMPHOCYTES # (AUTO) 1.1 X10'3 (1.1-4.8); LYMPHOCYTES % (AUTO) 26.2 % (21-51); MEAN CORPUSCULAR HGB CONC 34.1 g/dL (33.0-36.5); MEAN CORPUSCULAR VOLUME 84.9 FL (78-98); MEAN PLATELET VOLUME 7.3 FL (7.4-10.4); MONOCYTES # (AUTO) 0.4 X10'3 (0-0.9); MONOCYTES % (AUTO) 8.8 % (2-12); NEUTROPHILS # (AUTO) 2.4 X10'3 (1.8-7.7); NEUTROPHILS % (AUTO) 60.1 % (42-75); PLATELET COUNT 151 X10'3 (140-440); RED BLOOD COUNT 3.64 X10'6 (4.20-5.60); RED CELL DISTRIBUTION WIDTH 14.7 % (11.5-14.5)
[2024-12-07 05:43] LABS: ALANINE AMINOTRANSFERASE 14 U/L (12-78); ALBUMIN 2.2 G/DL (3.4-5.0); ALBUMIN/GLOBULIN RATIO 0.7 (1.1-1.5); ALKALINE PHOSPHATASE 100 IU/L (46-116); ANION GAP 9 (8-16); ASPARTATE AMINO TRANSFERASE 18 U/L (10-37); BILIRUBIN,TOTAL 0.7 MG/DL (0.1-1.0); BLOOD UREA NITROGEN 32 MG/DL (7-18); CALCIUM 8.8 MG/DL (8.5-10.1); CHLORIDE 104 MMOL/L (99-107); GLUCOSE 195 MG/DL (70-104); LIPASE 42 U/L (16-77); SODIUM 138 MMOL/L (135-145); TOTAL CARBON DIOXIDE 24.8 MMOL/L (24-32); TOTAL PROTEIN 5.5 G/DL (6.4-8.2); eCRCL 22 ML/MIN; eGFR 11 ML/MIN
[2024-12-07 06:44] LABS: POTASSIUM 2.9 MMOL/L (3.5-5.1)
[2024-12-07] MEDS: famotidine 20mg tablet PO SCH (07:47)
--- NOTE | 2024-12-07 12:04 | PROGRESS NOTE- Residence ---
Progress Note - Resident Providers to CC Resident Creating Document: EPHRAIM KAPLAN, RES ~ Central Line/PICC still needed: No Antibiotic Timeout Antibiotic Ordered?: No Subjective The patient was seen and examined in the bedside today. Reports that the abdominal pain has improved. Dr. Kumari spoke to black ash burner operator Dr. Jaimes, she has an appointment tomorrow at 4:00 p.m. informed the patient about this. She will be discharged today or tomorrow once the potassium levels improved. Objective Vital Signs Date Time Temp Pulse Resp B/P (MAP) Pulse Ox O2 Delivery O2 Flow Rate FiO2 12/07/24 11:00 97.8 91 18 120/79 (93) 99 Room Air 12/03/24 06:29 0.0 Result Diagram: 12/07/24 0448 12/07/24 0816 General-patient not in any acute distress, awake but lethargic appearing , ill- appearing, age-appropriate HEENT-atraumatic normocephalic, neck supple without elevated JVD, no thyromegaly or carotid bruit. No lymphadenopathy bilaterally. Eyes-no icterus or pallor seen in eyes Chest-clear to auscultation bilaterally, breathing nonlabored no tachypnea, no wheezing, no crepitation, no crackles. Heart-S1-S2 normal, regular heart rate no murmur Abdomen bowel sounds positive on auscultation, soft nondistended , signs of tenderness present over upper abdomen bilaterally, no guarding, no rigidity, colostomy bag present over right lower abdomen Skin no active skin rash Neurology-grossly intact, nonfocal , awake but lethargic appearing Extremity- no pedal edema able to move all 4 extremities Psychiatry - patient is not confused or agitated partially cooperated during physical examination Advance Care Planning Advanced Care plannin - 30 Minutes Plan Plan This is a 29-year-old female with history of type 1 diabetes mellitus, colon cancer s/p colostomy, transitional hormone replacement therapy which was stopped in July 2023 came to the ER with a chief complaint of abdominal pain. She was admitted for management of pancreatitis. Her triglycerides levels at the time of admission were 7269. The nephrology team was consulted for KORI and electrolyte abnormalities. Plan KORI likely secondary to ATN Cause is Multifactorial-hypovolemia, pancreatitis leading to vascular dysfunction, inflammation, contrast. Cause of ATN-likely contrast vs hypovolemia Management- -aggressive fluid resuscitation with D5W with three ampules of sodium bicarb or half NS with two ampules of sodium bicarb. -pancreatitis management -avoid contrast or any other nephrotoxin agents. -urine electrolytes daily -Neutra-Phos t.i.d. -careful monitor of sodium is also necessary as hypertriglyceridemia can cause pseudohyponatremia, therefore underestimating the serum sodium levels. 12/06/24 -urine studies urine osm<500, urine sodium> 20, FeNa>1, BUN/creatinine< 20 - fluids changed to LR, as bicarb levels improved and giving further bicarb can cause more hypokalemia 12/07/2024 -creatinine levels improved to 4.6 from 4.77 yesterday -patient will follow up with Dr. Kumari in the outpatient in 2-3 weeks. Hypokalemia Potassium this morning 2.9 Improved to 3.0 Continue potassium replacement therapy. Expecting the potassium to be stabilized as the bicarb was stopped yesterday. Hypertriglyceridemia This could be secondary from uncontrolled type 1 diabetes mellitus, DKA or hormone replacement therapy. Alcohol can also cause hypertriglyceridemia but the patient denies any alcohol intake. Denied any family history of lipid abnormalities. Triglycerides at the time of admission 7269, with total cholesterol 643, LDL 69. Repeat lipid panel ordered, triglycerides improved to 403. -dietary fat restriction, total diet fat< 5%, consult ground water contractor. -patient currently on gemfibrozil 200 mg b.i.d. -IV insulin is also recommended, patient did receive IV insulin infusion for about 48 hours. (heparin not recommended due to the transient nature of hypertriglyceridemia.) 12/06/2024-consider stopping gemfibrozil as this can aggravate renal failure and consider PCSK9 inhibitors, Repatha. 12/07/2024 -Dr. Kumari spoke with black ash burner operator, , has an appointment tomorrow at 4:00 p.m. -advised the patient to take insulin infusion pump with him. -gemfibrozil discontinued and started on fibrate as per black ash burner operator recommendations -avoid statins as per black ash burner operator recommendation. Pancreatitis Pancreatitis could be secondary to hypertriglyceridemia, type 1 diabetes mellitus -Calcium is in the normal range -patient is afebrile but tachycardic -leukocytosis improving -patient does have signs of worsening organ dysfunction, modified Francisco scoring for organ dysfunction-3 -significant drop in hemoglobin 17.9 to 9.4 even considering dilutional anemia, look out for hemorrhagic/necrotizing pancreatitis. -continue a lower -tried to avoid narcotics as much as possible. 12/06/2024-patient's abdominal pain seems to be improved 12/07/2024-patient's abdominal pain improved. Uncontrolled type 1 diabetes mellitus -A1c 10.8 -insulin protocol Ephraim Kaplan M.D Nephrology resident, PGY1 Attending Note: The patient is seen and examined. I have spoken to and she has been very kind to accommodate her for an outpatient consult tomorrow at 4 pm. she cannot miss this appointment as she needs a proper management of her hyperlipidemia and Dm1 that is brittle. She has ongoing azotemia and will need to see me in the office in 10 days again. Aly Torres MD Nephrology Date of Service: Dec 07, 2024 Billing Provider: ALY TORRES MD, PRAVAHIKA, RES Dec 07, 2024 12:04 ALY TORRES MD Dec 07, 2024 17:46
--- NOTE | 2024-12-07 14:39 | PROGRESS NOTE- Residence ---
Progress Note - Resident Providers to CC Resident Creating Document: LEONARD AWAN, RES ~ Antibiotic Timeout Antibiotic Ordered?: No Subjective The patient has been evaluated at the bedside. The patient reports significant improvement of pain. Currently oriented to place, person and time. Tolerating diet, we will advance her diet. Objective Vital Signs Date Time Temp Pulse Resp B/P (MAP) Pulse Ox O2 Delivery O2 Flow Rate FiO2 12/07/24 11:00 97.8 91 18 120/79 (93) 99 Room Air 12/03/24 06:29 0.0 Physical exam: General: Somnolent, well oriented, not confused, not agitated, not in acute distress, well cooperated during the physical. HEENT: Conjunctive are pink, sclerae clear, no icterus, pupil is equal in both sides, reactive to light, no ear discharge, no pharyngeal erythema or an edema. Neck: Supple, no JVD, no lymphadenopathy and thyromegaly. Chest: Equal air entry on both lungs, no additional sounds no rhonchi no wheezing at the moment. Cardiovascular: S1-S2 regular sinus rhythm and, regular rate, no gallops, no rubs, no murmurs Abdomen: No visible peristalsis, Bowel sounds present on auscultation, no tenderness in the level of the abdomen, presence of colostomy bag at the level of the right abdomen. Presence of formed stool in the colostomy bag. Extremities: No obvious deformities, no pitting edema bilaterally, capillary refill intact, peripheral pulsations are intact on both sides Central Nervous System: No focal neurological deficits, no motor or sensory weakness in all 4 extremities, could move all 4 extremities, 2+ deep tendon reflexes, negative Babinski. Musculoskeletal: No joint swelling, deformities, inflammations, and no scoliosis and back tenderness Skin: Warm and dry. Result Diagram: 12/07/24 0448 12/07/24 0816 Assessment Assessment 29-year-old female patient came to the hospital with abdominal pain. Plan Plan Abdominal pain-resolved: Acute pancreatitis secondary to hypertriglyceridemia: Hypertriglyceridemia: The patient came to the hospital with chief complaint of abdominal pain localized at the level of the epigastrium. Lipase levels 285. CT scan of the abdomen: Mild acute pancreatitis. No CT evidence pancreatic parenchymal necrosis. Correlate with appropriate lab testing. Postoperative changes of bilateral breast implants, near total colectomy pouch, and right lower quadrant ileostomy. No evidence of bowel obstruction or other acute process in the abdomen or pelvis. Pain control with [place] and Dilaudid. Currently on bicarb drip with D5 and three ampules of bicarb at 100 mL/hour. Triglyceride levels on 12/02/2024: 7269. The patient experienced a similar episode in November 23, 2024 were head bucker (Dr. Adalberto Son) and gang investigator (Dr. Jaimes) were consulted was recommended to continue treatment for diabetic ketoacidosis. The patient was started on DKA protocol with insulin drip during admission. Current Triglycerides levels on 12/05/2024: 403. Continue Gemfibrozil 600 mg b.i.d. 12/06/2024: Triglycerides levels 515. Continue gemfibrozil 600 mg b.i.d. 12/07/2024: Per nephrology and endocrinology (Dr. Jaimes) recommendation: Discontinue gemfibrozil 600 mg b.i.d. which can aggravate renal failure, start fenofibrate 48 mg daily. The patient does have an appointment for tomorrow 12/08/2024 at 4:00 p.m. Diabetic ketoacidosis: POA-resolved: Type 1 diabetes mellitus: Anion gap metabolic acidosis-resolved: Last hemoglobin A1c on May,: 10.0. The patient was started on DKA protocol. We are starting hyperglycemia/hypoglycemia protocol on 12/05/2024. 12/06/2024: Hyperglycemia/hypoglycemia protocol. Insulin glargine 18 units HS. High dose sliding scale short-acting insulin. 12/07/2024: Glucose levels today 195. Increasing insulin glargine to 20 units HS. Continue high dose sliding scale short-acting insulin. Sepsis secondary to Urinary tract infection/cystitis-resolved: Sepsis criteria: (WBC: 12.1, HR>90, RR>20, presence of source of infection): Urinalysis positive for urinary tract infection. Urine culture showing mixed isabell isolated. Blood culture no growth after three days. Completed course of ceftriaxone. Culturelle 41120 mmu b.i.d. to be completed for one month. Acute kidney injury likely multifactorial, possible contrast induced nephropathy and the systemic acute pancreatitis: Anion gap metabolic acidosis: Current creatinine 4.29, GFR 12, BUN/creatinine ratio 7.7. Fractional excretion of sodium 13.0%, fractional excretion of urea 66.2%: Indicating intrinsic kidney injury. Currently on D5W with three ampules of bicarb at 100 mL/hour. Nephrology is following the case. 12/06/2024: Stopped bicarb drip after normalization of bicarb levels. Started on lactated ringer at 100 mL/hour fine nephrology recommendation. 12/07/2024: Creatinine levels improving from 4.6 from 4.77. Follow-up appointment with Dr. Kumari as an outpatient setting in 2-3 weeks. Code status: Full code DVT prophylaxis: SCDs Analgesia/sedation: [place] and Dilaudid Line/tube: PIV GI prophylaxis: Famotidine 10 mg b.i.d. Nutrition: Clear liquid diet PT: No Prognosis: Guarded Disposition: Anticipated discharge tomorrow with follow-up with Dr. Jaimes (gang investigator) on 12/08/2024 at 4:00 p.m., follow-up appointment with Dr. Kumari within two weeks. Leonard Nicholson Internal Medicine Resident [facility] Date of Service: Dec 07, 2024 Billing Provider: ALTAF CARLSON MD Common Visit Codes: [id number] INP/OBS CARE(HIGH) LEONARD AWAN, RES Dec 07, 2024 14:39 ALTAF CARLSON MD Dec 07, 2024 18:03
[2024-12-07 19:18] LABS: ALANINE AMINOTRANSFERASE 15 U/L (12-78); ALBUMIN 2.1 G/DL (3.4-5.0); ALBUMIN/GLOBULIN RATIO 0.6 (1.1-1.5); ALKALINE PHOSPHATASE 100 IU/L (46-116); ANION GAP 6 (8-16); BILIRUBIN,TOTAL 0.5 MG/DL (0.1-1.0); BLOOD UREA NITROGEN 32 MG/DL (7-18); BUN/CREATININE RATIO 7.5 (10.0-20.0); CALCIUM 8.5 MG/DL (8.5-10.1); CHLORIDE 100 MMOL/L (99-107); CREATININE 4.25 MG/DL (0.40-0.90); GLUCOSE 300 MG/DL (70-104); SODIUM 130 MMOL/L (135-145); TOTAL CARBON DIOXIDE 23.9 MMOL/L (24-32); TOTAL PROTEIN 5.4 G/DL (6.4-8.2); eCRCL 23 ML/MIN; eGFR 12 ML/MIN
[2024-12-07 19:19] LABS: ASPARTATE AMINO TRANSFERASE 26 U/L (10-37); POTASSIUM 3.3 MMOL/L (3.5-5.1)
[2024-12-07] MEDS: potassium Cl 20 mEq SR tablet PO STA (22:28)
[2024-12-07] MEDS: insulin glargine (Lantus) pen - multi-dose SQ SCH (22:41)
[2024-12-07] MEDS: HYDROmorphone inj. 0.5 MG/0.5 ML DISP.SYRIN IV PRN (22:50)
[2024-12-08 02:00] VITALS: BP 113/71; PULSE 78; RESP 18; TEMP 97.7; O2SAT 98
[2024-12-08 06:00] VITALS: BP 124/82; PULSE 84; RESP 17; TEMP 97.5; O2SAT 99
[2024-12-08 06:46] LABS: CHOL/HDL RATIO 5.5 (0.00-4.99); CHOLESTEROL 154 MG/DL (0-200); HDL CHOLESTEROL 28 MG/DL (35-60); LDL CHOLESTEROL 84 MG/DL (50-100); TRIGLYCERIDES 240 MG/DL (20-135)
[2024-12-08] MEDS: fenofibrate 48mg tablet PO SCH (07:46)
[2024-12-08 08:00] VITALS: RESP 18; O2SAT 98
[2024-12-08] MEDS ORDERED: LANTUS SUBCUT (08:14)
[2024-12-08 08:28] LABS: BASOPHILS % (AUTO) 0.8 % (0-1); EOSINOPHILS # (AUTO) 0.2 X10'3 (0-0.9); EOSINOPHILS % (AUTO) 5.2 % (0-6); HEMOGLOBIN 10.2 g/dl (12.0-16.0); LYMPHOCYTES # (AUTO) 1.3 X10'3 (1.1-4.8); LYMPHOCYTES % (AUTO) 29.3 % (21-51); MEAN CORPUSCULAR HEMOGLOBIN 28.7 PG (27.0-31.0); MEAN CORPUSCULAR HGB CONC 33.9 g/dL (33.0-36.5); MEAN CORPUSCULAR VOLUME 84.8 FL (78-98); MEAN PLATELET VOLUME 7.7 FL (7.4-10.4); MONOCYTES # (AUTO) 0.5 X10'3 (0-0.9); MONOCYTES % (AUTO) 10.6 % (2-12); NEUTROPHILS # (AUTO) 2.3 X10'3 (1.8-7.7); NEUTROPHILS % (AUTO) 54.1 % (42-75); PLATELET COUNT 131 X10'3 (140-440); RED BLOOD COUNT 3.54 X10'6 (4.20-5.60); WHITE BLOOD COUNT 4.3 X10'3 (4.5-11.0)
[2024-12-08 08:32] LABS: ALANINE AMINOTRANSFERASE 11 U/L (12-78); ALBUMIN/GLOBULIN RATIO 0.7 (1.1-1.5); ALKALINE PHOSPHATASE 92 IU/L (46-116); ANION GAP 8 (8-16); ASPARTATE AMINO TRANSFERASE 14 U/L (10-37); BILIRUBIN,TOTAL 0.3 MG/DL (0.1-1.0); BLOOD UREA NITROGEN 33 MG/DL (7-18); BUN/CREATININE RATIO 7.9 (10.0-20.0); CALCIUM 8.7 MG/DL (8.5-10.1); CHLORIDE 103 MMOL/L (99-107); GLUCOSE 258 MG/DL (70-104); POTASSIUM 3.3 MMOL/L (3.5-5.1); SODIUM 134 MMOL/L (135-145); TOTAL CARBON DIOXIDE 22.8 MMOL/L (24-32); eCRCL 24 ML/MIN; eGFR 13 ML/MIN
[2024-12-08] MEDS ORDERED: potassium Cl 40MEQ/1/2NS 520ml 520 ML IV PRN (09:15)
[2024-12-08] MEDS ORDERED: potassium Cl 20 mEq SR tablet PO PRN (09:15)
[2024-12-08] MEDS ORDERED: magnesium sulf-water 4G/100mL 100 ML IV PRN (09:15)
[2024-12-08] MEDS ORDERED: magnesium sulf-water 2g/50mL 50 ML IV PRN (09:15)
[2024-12-08] MEDS ORDERED: magnesium Cl slow-release 64mg tablet PO PRN (09:15)
[2024-12-08] MEDS: potassium Cl 20 mEq SR tablet PO PRN (09:15)
[2024-12-08] MEDS: potassium Cl 20 mEq SR tablet PO STA (10:09)
[2024-12-08] MEDS ORDERED: INSU100V41 SQ (10:57)
--- NOTE | 2024-12-08 17:21 | DISCHARGE SUMMARY-Residence ---
Discharge Summary Providers to CC Resident Creating Document: JUDDJUDD CORREALEONARD Allison, RES ~ Discharge Summary Admission Diagnosis: DM . acute pancreatits ,leucocytosis Hospital Course DATE OF ADMISSION: 12/02/2024 DATE OF DISCHARGE: 12/08/2024 Discharge Diagnosis\Comment: Abdominal pain-resolved Acute pancreatitis secondary to hypertriglyceridemia Hypertriglyceridemia Diabetic ketoacidosis: POA-resolved Type 1 diabetes mellitus Anion gap metabolic acidosis-resolved Sepsis secondary to Urinary tract infection/cystitis-resolved Sepsis criteria: (WBC: 12.1, HR>90, RR>20, presence of source of infection) Acute kidney injury likely multifactorial, possible contrast induced nephropathy and the systemic acute pancreatitis Anion gap metabolic acidosis Operations\Procedures: None Consultants: Options Advisor, Dr. Kumari Complications: None Condition on DC: Stable New Medications: Insulin Degludec (Tresiba) 100 Unit/Ml Vial 45 UNIT SQ DAILY for 30 Days, #30 Continued Medications: Acetaminophen (Tylenol) 325 Mg Tablet 1 TAB PO QDAY PRN PRN for pain or fever for 30 Days, #30 TAB Acetaminophen (Tylenol) 325 Mg Tablet 650 MG PO Q6H PRN PAIN for 10 Days, #40 TAB Atomoxetine HCl (Atomoxetine HCl) 40 Mg Capsule 1 CAP PO QAM for 30 Days, #30 CAP 0 Refills Emtricitabine/Tenofov Alafenam (Descovy 200-25 mg Tablet) 200 Mg-25 Mg Tablet 1 TAB PO DAILY Famotidine (Famotidine) 20 Mg Tablet 1 TAB PO Q12H for 30 Days, #60 TAB 0 Refills Fenofibrate Nanocrystallized (Fenofibrate) 48 Mg Tablet 48 MG PO DAILY@0830 for 30 Days, #30 TAB Fluoxetine Hcl (Fluoxetine Hcl) 40 Mg Capsule 1 CAP PO DAILY Insulin Lispro (Humalog) 100 Unit/Ml Insuln.pen 0 UNIT SQ ACHS for 30 Days, #1 UNIT SLIDING SCALE, MEALTIME INSULIN LESS THAN 150: 0 UNITS 150-199: 2 UNITS 200-249: 4 UNITS 250-299: 7 UNITS 300-349: 10 UNITS 350-400: 13 UNITS GREATER THAN 400: CALL Ondansetron HCl (Ondansetron HCl) 8 Mg Tablet 1 TAB PO Q8H for nausea/vomiting for 10 Days, #30 TAB 0 Refills Discontinued Medications: Atorvastatin Calcium (Atorvastatin Calcium) 20 Mg Tablet 40 MG PO DAILY for 30 Days, #30 TAB Ciprofloxacin HCl (Ciprofloxacin HCl) 250 Mg Tablet 1 TAB PO Q12H for 5 Days, #10 TAB 0 Refills Estradiol Cypionate (Depo-Estradiol) 5 Mg/1 Ml Vial 0.2 ML IM Q7D Fluoxetine Hcl (Fluoxetine Hcl) 40 Mg Capsule 1 CAP PO DAILY for 30 Days, #30 CAP 0 Refills Insulin Glargine,Hum.rec.anlog* (Lantus*) 100 Unit/1 Ml Vial 22 UNITS SUBCUT BID for 30 Days, #12 ML Insulin Lispro (Insulin Lispro Kwikpen U-100) 100 Unit/Ml Insuln.pen SQ Discharge Summary: HPI: 29-year-old female patient with past medical history of type 1 diabetes mellitus, colon cancer S/P colostomy hypertriglyceridemia, 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 The patient states that she has been experiencing pain for one month. She was discharged on 11/16/2024 from [facility] after being treated for acute pancreatitis. The patient states that she has been feeling mild abdominal pain after discharge. Getting worse during the last week. Scaling it as a 9/10 in intensity localized in the level of the epigastrium, without radiation, stabbing type, reason for which the patient decided to come to the hospital. Currently denies any chest pain, shortness of breath, palpitations, urinary symptoms. Hospital course: 29-year-old female patient with past medical history of type 1 diabetes mellitus came to the hospital with chief complaint of abdominal pain. Upon admission the patient was found with acute pancreatitis, triglycerides levels were around 7000 reason for which the patient was started on aggressive IV fluids based on ringer lactate. The patient also was found with diabetic ketoacidosis, the patient was started on diabetic ketoacidosis protocol. Upon the following days the patient reported mild improvement of abdominal pain which slowly improved until completely resolution during the day of discharge on 12/08/2024. Due to diabetic ketoacidosis initially the patient was started with insulin drip, later progressed to insulin glargine getting better controlled glucose levels. Due to hypertriglyceridemia and worsening kidney function lead man over [employer] was consulted who recommended continue IV fluids. The patient evidenced with acute tubular necrosis which slowly is showing signs of improvement with trending down creatinine. Nephrology recommends follow-up as an outpatient. Supervisor Cartography (Dr. Jaimes) was consulted who recommends to continue treatment of hypertriglyceridemia with fenofibrate 48 mg daily due to concern of worsening kidney function with gemfibrozil. The patient got a follow-up appointment on 12/08/2024. Nephrology recommends that the patient goal follow-up disappointment with the advertising agency manager. Glycemic levels better controlled, the patient will be discharged. Discharge course: The patient remained hemodynamically stable. The patient will be discharged with the following instructions: Come back to the emergency department or call 911 if severe abdominal pain, nausea, fever sensation, chest pain, shortness of breath, palpitations is evidenced. Follow-up with the advertising agency manager Dr. Jaimes today 12/08/2024. Address: [address] [place] [address] [id number] [phone] Phone number: Continue your home medication. Continue tresiba 45 units daily. You will be instructed about your insulin pump by Dr. Jaimes today please follow-up. Follow-up with lead man over all [employer] in [employer] Dr. Gutierrez within two weeks. Follow-up with your primary care physician within two weeks. Continue your home medication one tablet fenofibrate 48 mg daily. Continue fluoxetine one capsule 40 mg daily. Continue famotidine one tablet of 20 mg every 12 hours. Continue Descovy one tablet daily. Continue your home medication at the amoxicillin one capsule of 40 mg daily. We are stopping your home medication atorvastatin due to increased risk for worsening kidney function. We are stopping ciprofloxacin because he completed the course of antibiotics during your hospitalization. Weekly labs with your primary care physician or nehrologist. Physical exam: General: Well alert, awake, well oriented, not confused, not agitated, not in acute distress, well cooperated during the physical. HEENT: Conjunctive are pink, sclerae clear, no icterus, pupil is equal in both sides, reactive to light, no ear discharge, no pharyngeal erythema or an edema. Neck: Supple, no JVD, no lymphadenopathy and thyromegaly. Chest: Equal air entry on both lungs, no additional sounds no rhonchi no wheezing at the moment. Cardiovascular: S1-S2 regular sinus rhythm and, regular rate, no gallops, no rubs, no murmurs Abdomen: No visible peristalsis, Bowel sounds present on auscultation, no tenderness in the level of the abdomen, presence of colostomy bag at the level of the right abdomen. Presence of formed stool in the colostomy bag. Extremities: No obvious deformities, no pitting edema bilaterally, capillary refill intact, peripheral pulsations are intact on both sides Central Nervous System: No focal neurological deficits, no motor or sensory weakness in all 4 extremities, could move all 4 extremities, 2+ deep tendon reflexes, negative Babinski. Musculoskeletal: No joint swelling, deformities, inflammations, and no scoliosis and back tenderness Skin: Warm and dry. Vital Signs Date Time Temp Pulse Resp B/P (MAP) Pulse Ox O2 Delivery O2 Flow Rate FiO2 12/08/24 08:00 18 98 Room Air 12/08/24 06:30 74 12/08/24 06:00 97.5 124/82 (96) 12/03/24 06:29 0.0 Laboratory Tests Test 12/06/24 17:29 12/06/24 20:31 12/07/24 04:48 12/07/24 07:42 Glucometer 300 mg/dl 254 mg/dl 260 mg/dl White Blood Count 4.0 X10'3 Red Blood Count 3.64 X10'6 Hemoglobin 10.5 g/dl Hematocrit 30.9 % Mean Corpuscular Volume 84.9 FL Mean Corpuscular Hemoglobin 29.0 PG Mean Corpuscular Hemoglobin Concent 34.1 g/dL Red Cell Distribution Width 14.7 % Platelet Count 151 X10'3 Mean Platelet Volume 7.3 FL Neutrophils (%) (Auto) 60.1 % Lymphocytes (%) (Auto) 26.2 % Monocytes (%) (Auto) 8.8 % Eosinophils (%) (Auto) 3.5 % Basophils (%) (Auto) 1.4 % Neutrophils # (Auto) 2.4 X10'3 Lymphocytes # (Auto) 1.1 X10'3 Monocytes # (Auto) 0.4 X10'3 Eosinophils # (Auto) 0.1 X10'3 Basophils # (Auto) 0.1 X10'3 CBC Comment Sodium Level 138 MMOL/L Potassium Level 2.9 MMOL/L Chloride Level 104 MMOL/L Carbon Dioxide Level 24.8 MMOL/L Anion Gap 9 Blood Urea Nitrogen 32 MG/DL Creatinine 4.60 MG/DL Estimated GFR/1.73 m2 11 ML/MIN BUN/Creatinine Ratio 7.0 Glucose Level 195 MG/DL Calcium Level 8.8 MG/DL Total Bilirubin 0.7 MG/DL Aspartate Amino Transf (AST/SGOT) 18 U/L Alanine Aminotransferase (ALT/SGPT) 14 U/L Alkaline Phosphatase 100 IU/L Total Protein 5.5 G/DL Albumin 2.2 G/DL Globulin 3.3 G/DL Albumin/Globulin Ratio 0.7 Lipase 42 U/L Chemistry Comments Test 12/07/24 08:16 12/07/24 11:36 12/07/24 15:16 12/07/24 16:46 Potassium Level 3.0 MMOL/L 3.4 MMOL/L Glucometer 199 mg/dl 322 mg/dl Test 12/07/24 18:35 12/07/24 22:02 12/07/24 22:36 12/08/24 05:41 Sodium Level 130 MMOL/L 134 MMOL/L Potassium Level 3.3 MMOL/L 3.5 MMOL/L 3.3 MMOL/L Chloride Level 100 MMOL/L 103 MMOL/L Carbon Dioxide Level 23.9 MMOL/L 22.8 MMOL/L Anion Gap 6 8 Blood Urea Nitrogen 32 MG/DL 33 MG/DL Creatinine 4.25 MG/DL 4.20 MG/DL Estimated GFR/1.73 m2 12 ML/MIN 13 ML/MIN BUN/Creatinine Ratio 7.5 7.9 Glucose Level 300 MG/DL 258 MG/DL Calcium Level 8.5 MG/DL 8.7 MG/DL Total Bilirubin 0.5 MG/DL 0.3 MG/DL Aspartate Amino Transf (AST/SGOT) 26 U/L 14 U/L Alanine Aminotransferase (ALT/SGPT) 15 U/L 11 U/L Alkaline Phosphatase 100 IU/L 92 IU/L Total Protein 5.4 G/DL 5.0 G/DL Albumin 2.1 G/DL 2.0 G/DL Globulin 3.3 G/DL 3.0 G/DL Albumin/Globulin Ratio 0.6 0.7 Chemistry Comments Glucometer 317 mg/dl Triglycerides Level 240 MG/DL Cholesterol Level 154 MG/DL LDL Cholesterol 84 MG/DL HDL Cholesterol 28 MG/DL Cholesterol/HDL Ratio 5.5 Test 12/08/24 07:44 12/08/24 08:18 Glucometer 243 mg/dl White Blood Count 4.3 X10'3 Red Blood Count 3.54 X10'6 Hemoglobin 10.2 g/dl Hematocrit 30.0 % Mean Corpuscular Volume 84.8 FL Mean Corpuscular Hemoglobin 28.7 PG Mean Corpuscular Hemoglobin Concent 33.9 g/dL Red Cell Distribution Width 14.0 % Platelet Count 131 X10'3 Mean Platelet Volume 7.7 FL Neutrophils (%) (Auto) 54.1 % Lymphocytes (%) (Auto) 29.3 % Monocytes (%) (Auto) 10.6 % Eosinophils (%) (Auto) 5.2 % Basophils (%) (Auto) 0.8 % Neutrophils # (Auto) 2.3 X10'3 Lymphocytes # (Auto) 1.3 X10'3 Monocytes # (Auto) 0.5 X10'3 Eosinophils # (Auto) 0.2 X10'3 Basophils # (Auto) 0.0 X10'3 CBC Comment *Problems/Diagnosis: (1) KORI (acute kidney injury) Status: Acute (2) Hypertriglyceridemia Status: Chronic (3) Uncontrolled diabetes mellitus Status: Acute (4) Acute pancreatitis Status: Acute Total Time Spent on D/C: > 30 Minutes Date of Service: Dec 08, 2024 Billing Provider: ALTAF CARLSON MD Common Visit Codes: 96029-EBP/OBS DISCH DAY >30min LEONARD AWAN, RES Dec 08, 2024 17:20 ALTFA CARLSON MD Dec 08, 2024 18:14
[2024-12-08] MEDS ORDERED: K and/or MAG REPLACEMENT MC SCH (20:00)
== END 2024-12-08 11:20 | disposition home or self-care (01) | DRG 720 ==
LOC: ER 08:02 → ED HOLD 11:44 → PCU 3S 12-03
PROVIDERS: ADMIT Internal Medicine; ATTEND Internal Medicine
PROC: BW211ZZ Computerized Tomography (CT Scan) of Abdomen and Pelvis using Low Osmolar Contrast (ICD-10-PCS; principal; 2024-12-02)
DX: A41.9 Sepsis, unspecified organism (principal); K85.90 Acute pancreatitis without necrosis or infection, unspecified; E10.10 Type 1 diabetes mellitus with ketoacidosis without coma; N17.9 Acute kidney failure, unspecified; E78.1 Pure hyperglyceridemia; N30.90 Cystitis, unspecified without hematuria; J45.909 Unspecified asthma, uncomplicated; F12.90 Cannabis use, unspecified, uncomplicated; E87.6 Hypokalemia; Z79.4 Long term (current) use of insulin; Z98.82 Breast implant status; Z79.899 Other long term (current) drug therapy; Z83.3 Family history of diabetes mellitus; Z93.2 Ileostomy status; Z88.8 Allergy status to other drugs, medicaments and biological substances; Z91.018 Allergy to other foods
CPT/HCPCS: 36415; 36600; 74177; 80053; 80061; 80305; 81001; 81025; 82570; 82803; 82948; 83036; 83605; 83690; 83735; 83935; 84100; 84132; 84133; 84145; 84156; 84300; 84540; 84550; 85018; 85025; 85651; 86140; 87040; 87081; 87088; 87207; 87324; 87449; 93005; 96361; 96365; 96375; 96376; 97110; 97116; 97162; 97530; 99285; A6258; G0378; J0696; J0780; J1171; J1644; J1815; J2405; J2765; J3480; J3490; J7030; J7040; J7060; J7070; J7120; Q9967